=== PATIENT | female | born 1965 | race Caucasian/White ===

== ENCOUNTER 2017-12-13 10:24 | Emergency (ER) | payer MEDICAID, SELFPAY ==
[2017-12-13 10:24] VITALS: BP 134/89; PULSE 104; RESP 18; TEMP 36.7; O2SAT 98; BMI 32.9
[2017-12-13 11:45] LABS: UTC Influenza A Antigen Negative (Negative); UTC Influenza B Antigen Negative (Negative)
--- NOTE | 2017-12-13 11:46 | HMH.EDUTC ---
[facility] [place] Clinical Impression: Asthmatic bronchitis Qualifiers: Asthma severity: unspecified severity Asthma persistence: unspecified Asthma complication type: with acute exacerbation Qualified Code(s): J45.901 - Unspecified asthma with (acute) exacerbation Disposition: Home, Self-Care Condition on Discharge: Good Instructions: DI for Asthma -- Adult, DI for Acute Bronchitis Additional Instructions: * Monitor Temp. Tylenol every 4 hours as needed no more then 5 times a day or 4000mg in 24 hours and/or ibuprofen every 6 hours as needed no more then 3200mg in 24 hours (as long as your primary care doctor has told you that it is ok to take both) for fever/aches/pain. ER if fever no less than 101 despite tylenol and ibuprofen * humidifier/vaporizer/hot steamy shower * Use your Inhaler or neb every 4-6 hours as needed like we discussed. Should help open airways and improve cough, wheezing, shortness of breath. * Mucinex during the day for your cough and cough suppressant only at night. Be sure to drink lots of water. Insurance may not cover a prescription of mucinex. Might be cheaper to get 400mg tablets and take 2 tablets morning, midday and evening all with lots of water. * Promethazine DM cough syrup will cause drowsiness. Use it only at night. No driving, operating machinery or caring for small children after taking it. * Start steroid tomorrow since you had injection in clinic. Helps with inflammation therefore, cough and wheezing. Follow directions on package. Rvwd side effects. Pt reports they have taken them before. Prescriptions: predniSONE [Deltasone 10mg tablet] 10 mg PO BID #10 tab Promethazine/Dextromethorphan [Promethazine-Dm Syrup] 5 - 10 ml PO HS PRN #120 ml PRN Reason: Cough Referrals: Tiffanie Esqueda PA [Primary Care Provider] - (IMMEDIATELY for new or worsening symptoms OR no noticeable improvement over the next 48-72 hours. 911 for difficulty breathing.) Forms: Work/School Release Time of Disposition: 13:22 Medical Decision Making - Agusto Inquiry Pt receiving controlled substance: No Vital Signs: 12/13/17 10:24 12/13/17 12:29 Temperature 98.1 F Temperature Source Oral Pulse Rate 100 H Pulse Rate [Left Radial] 104 H Respiratory Rate 18 Blood Pressure [Left Arm] 134/89 Blood Pressure Mean [Left Arm] 104 Blood Pressure Source [Left Arm] Automatic Cuff Blood Pressure Position [Left Arm] Supine 02 Sat by Pulse Oximetry 98 Oxygen Delivery Method Room Air - Lab Data Lab results reviewed: Yes: I reviewed the patient's lab results. Lab Results 12/13/17 10:44: Influenza Type A Ag Negative, Influenza Type B Ag Negative Orders (Tests/Meds): ED MEDICATIONS Discontinued Medications Generic Name Dose Route Start Last Admin Trade Name Alvaro PRN Reason Stop Dose Admin Albuterol/Ipratropium 3 ml 12/13/17 11:51 12/13/17 12:28 Duoneb 3ml Neb IH 12/13/17 11:52 3 ml ONCE ONE Administration Methylprednisolone Sodium Succinate 125 mg 12/13/17 11:51 12/13/17 11:54 Solu-Medrol 125mg/2ml Vial IM 12/13/17 11:52 125 mg ONCE ONE Administration - Radiology Data #1 Image(s): Chest Image Reviewed: Yes I have reviewed radiologist's interpretation Preliminary Findings: Normal/NAD - Reevaluation(s) Time: 12:25 Reevaluation #1: RT at BS for neb 1315: Rvwd CXR. Chest improved w/ neb and steroids. [facility] [place] - General Stated complaint: Poss Flu Time Seen by Provider: 12/13/17 11:46 Mode of Arrival: Ambulatory Source of Information: Patient Limitations: No Limitations Description of Symptoms (Recalled from Triage Doc. by RN): body aches, cough, fever, congestion with yellow/green mucous HEENT Symptoms (Recalled from RN notes): Yes (body aches, congestion) Resp Symptoms (Recalled from RN notes): Yes (cough) Skin Symptoms (Recalled from RN notes): No MS Symptoms (Recalled from RN notes): No Functional Status (Recalled from RN notes): na - Histor
--- NOTE | 2017-12-13 11:50 | ED_ITS ---
[facility] Disposition Clinical Impression: Asthmatic bronchitis Qualifiers: Asthma severity: unspecified severity Asthma persistence: unspecified Asthma complication type: with acute exacerbation Qualified Code(s): J45.901 - Unspecified asthma with (acute) exacerbation Disposition: Home, Self-Care Condition on Discharge: Good Instructions: DI for Asthma -- Adult, DI for Acute Bronchitis Additional Instructions: * Monitor Temp. Tylenol every 4 hours as needed no more then 5 times a day or 4000mg in 24 hours and/or ibuprofen every 6 hours as needed no more then 3200mg in 24 hours (as long as your primary care doctor has told you that it is ok to take both) for fever/aches/pain. ER if fever no less than 101 despite tylenol and ibuprofen * humidifier/vaporizer/hot steamy shower * Use your Inhaler or neb every 4-6 hours as needed like we discussed. Should help open airways and improve cough, wheezing, shortness of breath. * Mucinex during the day for your cough and cough suppressant only at night. Be sure to drink lots of water. Insurance may not cover a prescription of mucinex. Might be cheaper to get 400mg tablets and take 2 tablets morning, midday and evening all with lots of water. * Promethazine DM cough syrup will cause drowsiness. Use it only at night. No driving, operating machinery or caring for small children after taking it. * Start steroid tomorrow since you had injection in clinic. Helps with inflammation therefore, cough and wheezing. Follow directions on package. Rvwd side effects. Pt reports they have taken them before. Prescriptions: predniSONE [Deltasone 10mg tablet] 10 mg PO BID #10 tab Promethazine/Dextromethorphan [Promethazine-Dm Syrup] 5 - 10 ml PO HS PRN #120 ml PRN Reason: Cough Referrals: Tiffanie Esqueda PA [Primary Care Provider] - (IMMEDIATELY for new or worsening symptoms OR no noticeable improvement over the next 48-72 hours. 911 for difficulty breathing.) Forms: Work/School Release Time of Disposition: 13:22 Medical Decision Making - Agusto Inquiry Pt receiving controlled substance: No Vital Signs: 12/13/17 10:24 12/13/17 12:29 Temperature 98.1 F Temperature Source Oral Pulse Rate 100 H Pulse Rate [Left Radial] 104 H Respiratory Rate 18 Blood Pressure [Left Arm] 134/89 Blood Pressure Mean [Left Arm] 104 Blood Pressure Source [Left Arm] Automatic Cuff Blood Pressure Position [Left Arm] Supine 02 Sat by Pulse Oximetry 98 Oxygen Delivery Method Room Air - Lab Data Lab results reviewed: Yes: I reviewed the patient's lab results. Lab Results 12/13/17 10:44: Influenza Type A Ag Negative, Influenza Type B Ag Negative Orders (Tests/Meds): ED MEDICATIONS Discontinued Medications Generic Name Dose Route Start Last Admin Trade Name Huyq PRN Reason Stop Dose Admin Albuterol/Ipratropium 3 ml 12/13/17 11:51 12/13/17 12:28 Duoneb 3ml Neb IH 12/13/17 11:52 3 ml ONCE ONE Administration Methylprednisolone Sodium Succinate 125 mg 12/13/17 11:51 12/13/17 11:54 Solu-Medrol 125mg/2ml Vial IM 12/13/17 11:52 125 mg ONCE ONE Administration - Radiology Data #1 Image(s): Chest Image Reviewed: Yes I have reviewed radiologist's interpretation Preliminary Findings: Normal/NAD - Reevaluation(s) Time: 12:25 Reevaluation #1: RT at BS for neb 1315: Rvwd CXR. Chest improved w/ neb and steroids.
--- NOTE | 2017-12-13 11:51 | XR_ITS ---
XR chest 2V HISTORY: ITS.REASON: cough, wheezing, hx asthma, ORDERING PHYSICIAN: Milton Cleveland PATIENT AGE: 52 years COMPARISON: 07/05/2015 FINDINGS: The cardiomediastinal silhouette and pulmonary vascularity are within normal limits. The lungs are clear without infiltrates, suspicious nodules, or pleural effusions. No acute bony abnormalities. IMPRESSION: Negative chest, no acute finding
[2017-12-13 12:29] VITALS: PULSE 100; PULSE 91
[2017-12-13 13:26] VITALS: BP 134/89; PULSE 100; RESP 18; TEMP 36.7; O2SAT 98
== END 2017-12-13 13:31 | disposition home or self-care (01) ==
PROVIDERS: Emergency Provider Nurse Practitioner Family; Family Provider Physician Assistant; PCP Physician Assistant
DX: J45.901 Unspecified asthma with (acute) exacerbation (principal)
CPT/HCPCS: 71046; 87804; 96372; 99203

== ENCOUNTER → 2018-08-11 08:09 | Outpatient (CLI) | payer OTHER, MEDICAID, SELFPAY ==
--- NOTE | 2018-08-11 08:11 | MM_ITS ---
MM Dig screening mamm BI w/CAD ORDERING PHYSICIAN : SUE Fox PATIENT AGE: 53 years GENDER: Female COMPARISON: Right Ultrasound and mammogram from our facility from August 2017 & bilateral mammogram November 2016 ;. Old outside studies from [address] [place] [address] dated 2013 and 2014 INDICATION: ITS.REASON: Screening no hormones. No new complaints. Patient with previous percutaneous needle biopsy right breast 2 years ago Family history. Mother with breast cancer. TECHNIQUE: Standard CC and MLO images were obtained. R2 CAD reviewed. FINDINGS: RIGHT BREAST:The prominent ovoid density in the retroareolar region right breast is again noted and appear stable since 2017.. It measures up to 2.4 cm height 2.2 cm transverse with no significant progression since 2017 exam. This mass appears to have been previously [facility]opsied[facility]- [facility];. Old outside studies from [address] [place] [address] dated 2013 and 2014 demonstrating relative stability at this mass.., ultrasound was performed here at our facility in 2016. We do not have information as to the results of the previous biopsy but given the stability here I believe it can be followed safely. . There is a 6 mm x 7.5 mm nodular density at the deeper inferior right breast which appears stable on cc view and MLO view as well. Other areas of relative density such as superior right breast upper-outer quadrant has remained fairly stable and can be followed.. LEFT BREAST:. There are areas highlighted by CAD which are more evident today than studies particularly compared back to 2014. It I favor these are most likely summation shadows but the would benefit from CC & MLO and 90 degree spot views to evaluate. If any of these densities persist ultrasound may be warranted. The area labeled X is seen at the retroareolar most evident on MLO view. Area labeled Y seen at deep breast on cc view is highlighted by CAD but I believe is stable. There are also areas at superior left breast labeled Z and Y which are most likely summation but should be included on the spot views IMPRESSION: ...... 1. Left breast. Focal focal areas of density I favor merely summation shadows but would benefit from spot views since there more evident today. These are labeled X, Y and Z 2. Stable right breast. No appreciable change. Follow-up right mammogram 1 year . . Stable large ovoid density retroareolar region right breast is remain stable.. Previously biopsied in 2013. It can be followed . Other small areas of the right breast stable. 3. Moderately dense breast bilaterally BI-RADS Category: 0 Need Additional Imaging Evaluation RECOMMENDED FOLLOW-UP: IMM - IMMEDIATE FOLLOW-UP RECOMMENDED Left breast Spot views (A letter has been sent to the patient regarding results of the study.)
== END ==
PROVIDERS: PCP Physician Assistant; Visit Provider Physician Assistant
DX: Z12.31 Encounter for screening mammogram for malignant neoplasm of breast (principal)
CPT/HCPCS: 77067

== ENCOUNTER → 2018-09-12 14:32 | Outpatient (CLI) | payer OTHER, MEDICAID, SELFPAY ==
[2018-09-13 09:25] LABS: Basophils % 0.5 % (0.1-2.0); Eosinophils # 0.1 K/mm3 (0.0-0.4); Eosinophils % 1.7 % (0.1-12.0); Hemoglobin 12.4 g/dL (12.2-16.2); Lymphocytes # 2.1 K/mm3 (0.7-4.5); Mean Corpuscular HGB Conc 31.1 g/dL (31.8-35.4); Mean Corpuscular Hemoglobin 29.6 pg (27.0-31.2); Mean Corpuscular Volume 95.1 fl (81-99); Mean Platelet Volume 10.6 fl (7.4-10.4); Monocytes # 0.4 K/mm3 (0.1-1.0); Monocytes % 4.8 % (1.7-9.3); Neutrophils # 4.9 K/mm3 (1.8-7.8); Platelet Count 293 K/mm3 (142-424); Red Blood Count 4.21 M/mm3 (4.20-5.40); Red Cell Distribution Width 14.1 % (11.5-17.5); White Blood Count 7.5 K/mm3 (4.8-10.8)
[2018-09-13 09:38] LABS: Anion Gap 14.1 mEq/L (5-15); Blood Urea Nitrogen 16 mg/dL (7-18); Carbon Dioxide 26 mmol/L (21.0-32.0); Chloride 105 mmol/L (98-107); Creatinine,Serum 0.73 mg/dL (0.55-1.02); Estimated Glomerular Filt Rate 84 ml/min (>60); Potassium 4.1 mmoL/L (3.5-5.1); Sodium 141 mmol/L (136-145)
[2018-09-13 09:39] LABS: Alanine Aminotransferase 27 U/L (12-78); Albumin/Globulin Ratio 1.3 (1.1-1.8); Alkaline Phosphatase 113 U/L (46-116); Aspartate Amino Transferase 14 U/L (15-37); Bilirubin,Total 0.3 mg/dL (0.2-1.0); Calcium 9.1 mg/dL (8.5-10.1); Free T4 (Free Thyroxine) 0.99 ng/dl (0.76-1.46); GFR (African American) 101 ML/MIN (>60); Globulin 3.1 gm/dl (1.3-3.2); Glucose 107 mg/dL (74-106); Thyroid Stimulating Hormone 2.46 uIU/ml (0.358-3.740); Total Protein,Serum 7.1 gm/dL (6.4-8.2)
[2018-09-14 15:23] LABS: Vitamin D 25 Hydroxy 29.6 ng/mL (30.0-100.0)
== END ==
PROVIDERS: Visit Provider Physician Assistant
DX: G45.9 Transient cerebral ischemic attack, unspecified (principal)
CPT/HCPCS: 80053; 82652; 84439; 84443; 85025

== ENCOUNTER → 2018-09-22 12:56 | Outpatient (CLI) | payer OTHER, MEDICAID, SELFPAY ==
--- NOTE | 2018-09-22 12:58 | CI_ITS ---
Cerebrovascular Exam Indications: TIA 434.91. IMPRESSIONS 1. The bilateral vertebral arteries are patent with normal antegrade flow. 2. Study suggests less than 20% stenosis involving the right internal carotid artery. 3. Study suggests less than 20% stenosis involving the left internal carotid artery. 4. Tortuous carotid arteries seen bilaterally. 5. 2.0cm lymph node seen left neck. History: Transient ischemic attack. Carotid duplex study. Complete study and Doppler flow study including spectral analysis, color and farr scale imaging. Height: Height: 165.1cm. Height: 65in. Weight: Weight: 91.2kg. Weight: 200.6lb. Body mass index: BMI: 33.4kg/m^2. Body surface area: BSA: 2.08m^2. Location: Vascular laboratory. Patient status: Outpatient. Tables: Arterial flow: + +--------+--------+ Location V sys V ed + +--------+--------+ Right CCA - proximal 114cm/s 24.4cm/s + +--------+--------+ Right CCA - distal 70.7cm/s 21.2cm/s + +--------+--------+ Right ECA 65.2cm/s 11.8cm/s + +--------+--------+ Right ICA - proximal 94.3cm/s 34.6cm/s + +--------+--------+ Right ICA - mid 90.4cm/s 36.9cm/s + +--------+--------+ Right ICA - distal 99cm/s 24.4cm/s + +--------+--------+ Right vertebral 51.1cm/s 18.9cm/s + +--------+--------+ Left CCA - proximal 95.9cm/s 23.6cm/s + +--------+--------+ Left CCA - distal 87.2cm/s 17.3cm/s + +--------+--------+ Left ECA 90.4cm/s 15.7cm/s + +--------+--------+ Left ICA - proximal 106cm/s 37.7cm/s + +--------+--------+ Left ICA - mid 107cm/s 40.1cm/s + +--------+--------+ Left ICA - distal 107cm/s 32.2cm/s + +--------+--------+ Left vertebral 40.9cm/s 12.6cm/s + +--------+--------+ Velocity ratios: + + + + + + Right, V sys Right, V ed Left, V sys Left, V ed + + + + + + Max ICA/dist CCA 1.4 1.74 1.23 2.32 + + + + + + (Report amended ) Electronically signed by: Delvis Evans [id number]
--- NOTE | 2018-09-22 12:58 | MM_ITS ---
MM Dig mamm DX unilat LT CAD INDICATION: Follow-up abnormal screening exam, asymmetric densities ORDERING PHYSICIAN: SUE Fox PATIENT AGE: 53 years COMPARISON: 08/11/2018, 08/04/2017, 11/11/2016 TECHNIQUE: Spot compression views are performed of the left breast FINDINGS: There is average to dense fibroglandular tissue. There are scattered asymmetric areas of increased density once again noted. For the most part these appear to compress out as fibroglandular tissue. Persistent asymmetric density is present in the retroareolar region probably related to fibroglandular tissue. Left breast ultrasound is however suggested IMPRESSION: Scattered areas of asymmetric density which may be related to asymmetric fibroglandular tissue. Left breast ultrasound is recommended. BI-RADS Category: 0 Need Additional Imaging Evaluation RECOMMENDED FOLLOW-UP: IMM - IMMEDIATE FOLLOW-UP RECOMMENDED (A letter has been sent to the patient regarding results of the study.)
== END ==
PROVIDERS: PCP Physician Assistant; Visit Provider Physician Assistant
DX: G45.9 Transient cerebral ischemic attack, unspecified (principal)
CPT/HCPCS: 77065; 93880; A9537

== ENCOUNTER → 2018-10-06 13:39 | Outpatient (CLI) | payer OTHER, MEDICAID, SELFPAY ==
--- NOTE | 2018-10-06 13:40 | US_ITS ---
US breast LT complete INDICATION: Follow-up abnormal mammogram ORDERING PHYSICIAN: SUE Fox PATIENT AGE: 53 years COMPARISON: 09/22/2018 TECHNIQUE: Left breast ultrasound complete with axilla FINDINGS: 5 mm cyst is present at 6:00. No suspicious nodules. No solid nodules demonstrated. Small nodes are present in the axilla. IMPRESSION: Benign findings, small cyst noted at 6:00 Probably benign findings on the mammogram. Recommend 6 month mammographic follow-up regarding the asymmetric density BI-RADS Category: 3 Probably Benign Finding Short Term Follow-up RECOMMENDED FOLLOW-UP: 6M - 6 MONTH FOLLOW-UP (A letter has been sent to the patient regarding results of the study.)
== END ==
PROVIDERS: PCP Physician Assistant; Visit Provider Physician Assistant
DX: R92.8 Other abnormal and inconclusive findings on diagnostic imaging of breast (principal)
CPT/HCPCS: 76641

== ENCOUNTER → 2018-12-20 10:08 | Outpatient (CLI) | payer OTHER, MEDICAID, SELFPAY ==
--- NOTE | 2018-12-20 10:13 | XR_ITS ---
XR knee RT 4V HISTORY: Right knee pain ITS.REASON: 4 views weightbearing ORDERING PHYSICIAN: Naomie Marie MD PATIENT AGE: 53 years COMPARISON: 11/25/2015 FINDINGS: Moderate osteoarthritic changes are present involving all 3 compartments with narrowing of the joint space and osteophyte formation. There is a small suprapatellar effusion suspected. No acute fracture or dislocation. No lytic or blastic change. IMPRESSION: Moderate osteoarthritis involving all 3 compartments chest shown some progression compared to previous exam with small knee joint effusion
== END ==
PROVIDERS: PCP Physician Assistant; Visit Provider Orthopaedic Surgery
DX: M25.561 Pain in right knee (principal)
CPT/HCPCS: 73564

== ENCOUNTER 2018-12-20 11:43 | Outpatient (RCR) | payer OTHER, MEDICAID, SELFPAY | END 2018-12-20 11:50 | disposition home or self-care (01) | LOC: PT 11:43 | PROVIDERS: Visit Provider Orthopaedic Surgery | DX: M17.11 Unilateral primary osteoarthritis, right knee (principal) | CPT/HCPCS: 97760 ==

== ENCOUNTER → 2019-02-16 14:16 | Outpatient (CLI) | payer OTHER, MEDICAID, SELFPAY ==
--- NOTE | 2019-02-16 14:31 | XR_ITS ---
XR chest 2V HISTORY: Chronic asthma, bronchitis ITS.REASON: pre op ORDERING PHYSICIAN: Naomie Marie MD PATIENT AGE: 54 years COMPARISON: 12/13/2017 FINDINGS: The cardiomediastinal silhouette and pulmonary vascularity are within normal limits. There is a faint nodular opacity in the right lung base overlying the medial aspect of the right fifth rib and could be due to summation artifact and may be confirmed with follow-up. There is an old fracture of the right seventh rib. No lobar consolidation or collapse. There are degenerative changes in the thoracic spine. IMPRESSION: No acute finding. See above for detail
[2019-02-16 14:52] LABS: INR 0.95 (0.9-1.1); Prothrombin Time 9.9 seconds (9.4-11.8)
[2019-02-16 15:44] LABS: Alanine Aminotransferase 32 U/L (12-78); Albumin Level 3.7 gm/dL (3.4-5.0); Albumin/Globulin Ratio 1.1 (1.1-1.8); Alkaline Phosphatase 106 U/L (46-116); Anion Gap 15.1 mEq/L (5-15); Aspartate Amino Transferase 15 U/L (15-37); Bilirubin,Total 0.5 mg/dL (0.2-1.0); Blood Urea Nitrogen 12 mg/dL (7-18); Calcium 8.6 mg/dL (8.5-10.1); Carbon Dioxide 24 mmol/L (21.0-32.0); Chloride 105 mmol/L (98-107); Creatinine,Serum 0.77 mg/dL (0.55-1.02); Estimated Glomerular Filt Rate 78 ml/min (>60); GFR (African American) 95 ML/MIN (>60); Globulin 3.3 gm/dl (1.3-3.2); Glucose 97 mg/dL (74-106); Potassium 4.1 mmoL/L (3.5-5.1); Sodium 140 mmol/L (136-145)
[2019-02-16 17:13] LABS: Basophils % 0.3 % (0.1-2.0); Eosinophils # 0.2 K/mm3 (0.0-0.4); Eosinophils % 3.9 % (0.1-12.0); Hematocrit 39.4 % (37.0-47.0); Hemoglobin 13.3 g/dL (12.2-16.2); Lymphocytes # 2.3 K/mm3 (0.7-4.5); Lymphocytes % 37.2 % (10-50); Mean Corpuscular HGB Conc 33.7 g/dL (31.8-35.4); Mean Corpuscular Hemoglobin 29.9 pg (27.0-31.2); Mean Corpuscular Volume 88.8 fl (81-99); Mean Platelet Volume 9.9 fl (7.4-10.4); Monocytes # 0.3 K/mm3 (0.1-1.0); Neutrophils # 3.3 K/mm3 (1.8-7.8); Neutrophils % 53.5 % (37.0-80.0); Platelet Count 283 K/mm3 (142-424); Red Blood Count 4.43 M/mm3 (4.20-5.40); Red Cell Distribution Width 13.7 % (11.5-17.5); White Blood Count 6.1 K/mm3 (4.8-10.8)
== END ==
PROVIDERS: Visit Provider Orthopaedic Surgery
DX: Z01.818 Encounter for other preprocedural examination (principal)
CPT/HCPCS: 36415; 71046; 80053; 85025; 85610; 86850; 87081

== ENCOUNTER 2019-03-06 06:12 | Inpatient (IN) | payer BC, SELFPAY ==
[2019-03-06] VITALS (18 sets, daily range): BP systolic 119–139; BP diastolic 66–85; PULSE 78–105; RESP 16–18; TEMP 36.2–43; O2SAT 91–100; BMI 34.2
[2019-03-06 08:16] LABS: Microscopic,Cath URINE MICROSCOPIC (MICROSCOPIC)
[2019-03-06 08:17] LABS: Appearance,Urine/Cath CLEAR (Clear); Bilirubin,Cath Negative (Negative); Blood, Urine/Cath 1+ (Negative); Color,Urine/Cath YELLOW (Yellow); Glucose,Urine/Cath (UA) Negative (Negative); Ketones,Urine/Cath Negative (Negative); Leukocyte Esterase,Cath Negative (Negative); Nitrate,Cath Negative (Negative); Protein,Urine/Cath Negative (Negative); Urobilinogen,Cath 0.2 EU/dl (0.2)
[2019-03-06 09:11] LABS: WBC,Urine/Cath Occasional #/hpf (0-3)
[2019-03-06 09:12] LABS: Bacteria,Urine/Cath 1+ /lpf; Mucus,Urine/Cath 1+ /lpf
--- NOTE | 2019-03-06 11:35 | SUR.OPER ---
1135: Ancef 1 gm given IV by TECHNICAL SUPPORT TECHNICIAN at MD request, over 4 hr dimple since last dose given.
--- NOTE | 2019-03-06 11:45 | SUR.OPER ---
1024: report to pt's that components had been cemented, pt stable, delivered by pre op staff. 1115: pre op staff delivered report that surgeon closing (suturing) at this time, pt stable, all going as expected, approximately 30-45 minutes before surgeon will be out to speak with pt's .
--- NOTE | 2019-03-06 12:23 | HMH.ANESCL ---
[facility] Anesthesia Checklist - Patient Identification Patient Identification: Arm Band - Structural Data Admitted From: Home Planned Operative Procedure/s: right total knee arthroplasty Consent for Planned Operative Procedure(s) Verified: Yes Verified Documents: Surgical Consent, History and Physical - NPO Status Verified Time NPO: 00:00 - Additional verifications Anesthesia Reactions: No - Airway Assessment C-Spine Mobility Assessed: Yes (mp2) TMJ Mobility Assessed: Yes Dentition: Good Dentition - Neurological Assessment Level of Consciousness: Awake, Alert - Anesthesia Plan Anesthesia Risk discussed: Yes Anesthesia Plan: Verified ASA Class: II Anesthesia Type: Spinal (with Mac and Adductor canal block) [facility] History I have reviewed the patient's past medical history: Yes Medical History: Reports:: Asthma Denies:: Cancer, Diabetes Mellitus Type 1, Diabetes Mellitus Type 2, Hypertension, Internal Pacemaker, Lung Disease, MRSA, Seizures *Have you ever received a pneumonia vaccine?: Yes *Have you received a flu vaccine this season?: No Other Medical History: Reports: Other. Denies: Hypothyroidism Laterality Cases: Right: Arthroscopy Knee Other Surgeries: Yes: Cholecystectomy, Hernia Repair, Thyroidectomy, Other. No: Pacemaker Amputation: No Fractures: No - *Social History Educational Level: Attended High School Smoking Status: Former smoker Tobacco Type: cigarettes Alcohol Intake: never Substance Use Type: denies use *Occupational Status:: employed Housing: house Household Members: spouse *Travel in the last 8 weeks: None - Psychiatric History Expresses thoughts of harming self/others: None Suicide Plan Description: No Plan Family Hx:: Asthma
--- NOTE | 2019-03-06 12:24 | HMH.ANESI ---
[facility] Anesthesia Record Part I Intake, IV Amount: 2,600 Estimated blood loss (mL): 100 Urine output (mL): 900 Blood Pressure: 131/66 SaO2: 95 Pulse Rate: 100 Respiratory Rate: 16 Temperature: 98.2 F Patient is:: Drowsy, Stable Stable to PACU at:: 12:15
--- NOTE | 2019-03-06 12:25 | HMH.ANESII ---
[facility] Anesthesia Record Part II Discharge Time: 12:45 Destination: 2nd floor PACU nurse assessment reviewed?: Yes Patient Condition:: Good Anesthesia Complications:: None Swallowing reflex intact?: Yes Cyanosis?: No
--- NOTE | 2019-03-06 12:32 | XR_ITS ---
XR knee RT 2V HISTORY: Follow-up knee replacement ITS.REASON: post op TKA ORDERING PHYSICIAN: Naomie Marie MD PATIENT AGE: 54 years COMPARISON: None FINDINGS: Status post total knee replacement. Good alignment. There is postsurgical gas noted. On the lateral view, there are 2 opacities overlying the distal femur not readily apparent on the frontal view and may be due to artifact. Bony spicules is also a consideration. IMPRESSION: Good alignment status post total knee replacement. There are 2 triangular shaped densities noted over the distal femur on the lateral view and could be due to artifact or bony spicules
--- NOTE | 2019-03-06 12:50 | PC.NURSE ---
BILATERAL LUNG SOUNDS ARE CLEAR AND CHEST RISES EVENLY WITH INSPIRATION AND EXHALATION. BOWEL SOUNDS X4. PATIENT STATES THAT SHE IS IN NO PAIN AT THIS TIME WHEN ASKED BUT IS STILL VERY DROWSY. WILL CONTINUE TO MONITOR. POLAR CARE IS IN PLACE ON RIGHT KNEE, AND THIGH HIGH SCUDS ARE BEING USED ON LEFT LEG.
--- NOTE | 2019-03-06 13:28 | PC.NURSE ---
PHYSICAL THERAPY AT BEDSIDE. PATIENT VERY DROWSY, PHYSICAL THERAPY STATES THEY WILL RETURN AT 1730 TO ATTEMPT TO GET PATIENT UP OUT OF BED AT THAT TIME.
--- NOTE | 2019-03-06 13:31 | HMH.ORTHHP ---
*Admission Date: 03/06/19 *Chief complaint: R knee DJD *History of present illness: 54yo F with R knee DJD refractory to conservative treatment, underwent R TKA this morning without complication. Admitted for routine post-op care, physical therapy and dispo planning. [facility] History I have reviewed the patient's past medical history: Yes Medical History: Reports:: Asthma Denies:: Cancer, Diabetes Mellitus Type 1, Diabetes Mellitus Type 2, Hypertension, Internal Pacemaker, Lung Disease, MRSA, Seizures *Have you ever received a pneumonia vaccine?: No *Have you received a flu vaccine this season?: No Other Medical History: Reports: Other. Denies: Hypothyroidism Laterality Cases: Right: Arthroscopy Knee Other Surgeries: Yes: Cholecystectomy, Hernia Repair, Thyroidectomy, Other. No: Pacemaker Amputation: No Fractures: No - *Social History Educational Level: Completed High School Smoking Status: Former smoker Tobacco Type: cigarettes Alcohol Intake: never Substance Use Type: denies use *Occupational Status:: employed Housing: house Household Members: spouse *Travel in the last 8 weeks: None - Psychiatric History Expresses thoughts of harming self/others: None Suicide Plan Description: No Plan Family Hx:: Asthma Review of Systems - Review of Systems Review of systems:: pertinent systems reviewed and negative unless documented below Meds Home Medications Medication Instructions Recorded Confirmed Type Budesonide/Formoterol Fumarate 2 puff INHALATION BID 07/31/18 03/06/19 History [Symbicort 80-4.5 Mcg Inhaler] hydrocodone 5 mg-acetaminophen 325 1 tab PO BID PRN #60 tab 11/20/18 03/06/19 Rx mg tablet cyclobenzaprine 10 mg tablet 10 mg PO TID #90 tab 12/22/18 03/06/19 Rx diclofenac sodium 75 mg 75 mg PO BID #60 tab 01/11/19 03/06/19 Rx tablet,delayed release levothyroxine 150 mcg tablet 150 mcg PO DAILY #90 tab 01/11/19 03/06/19 Rx Gabapentin 800 mg PO TID 03/06/19 03/06/19 History Allergies Allergy/AdvReac Type Severity Reaction Status Date / Time No Known Drug Allergies Allergy Unknown Verified 02/28/19 10:04 Exam Vital signs and Labs for Last 24 Hours: Temp Pulse Resp BP Pulse Ox 98.0 F 93 H 18 121/69 93 L 03/06/19 12:50 03/06/19 13:20 03/06/19 13:20 03/06/19 13:20 03/06/19 13:20 Laboratory Results - last 24 hr 03/06/19 06:41: Blood Type O Positive, Antibody Screen Negative 03/06/19 07:32: Urine Color Yellow, Urine Appearance Clear, Urine pH 6.0, Ur Specific [place] 1.020, Urine Protein Negative, Urine Glucose (UA) Negative, Urine Ketones Negative, Urine Blood 1+, Urine Nitrate Negative, Urine Bilirubin Negative, Urine Urobilinogen 0.2, Ur Leukocyte Esterase Negative, Urine RBC 5-10, Urine WBC Occasional, Ur Squamous Epith Cells None, Urine Bacteria 1+ I & O for Last 24 hours: Intake & Output 03/04/19 03/05/19 03/06/19 03/07/19 11:59 11:59 11:59 11:59 Intake Total 2600 / 2600 Output Total 900 / 900 Balance -900 / -900 2600 / 2600 Weight 206 lb - Constitutional no acute distress, average body habitus - *Routine HEENT Exam Head: Present: normocephalic Eye: Present: EOMI ENT: Present: mucous membranes moist - *Routine Neck Exam Present: supple - *Routine Respiratory Exam Present: CTA bilaterally. Absent: accessory muscle use, patient mechanically ventilated, decreased breath sounds, rhonchi, wheezes - *Routine Cardiovascular Exam Present: RRR - *Routine Abdominal Exam Present: soft. Absent: tenderness - *Routine Extremities Exam Comments: R knee dressings c/d/i +DF/PF/EHL RLE; spinal wearing off sensation diminished RLE s/p spinal/block palpable pedal pulses RLE, foot warm/well-perfused R calf soft, non-tender - *Routine Skin Exam Present: warm, wounds. Absent: ecchymosis - *Routine Neurological Exam Present: alert, oriented X3, moving all extremities, normal tone. Absent: altered mental status - Routine Psychiatric Exam Pres
--- NOTE | 2019-03-06 13:35 | P.HP_ITS ---
*Admission Date: 03/06/19 *Chief complaint: R knee DJD *History of present illness: 54yo F with R knee DJD refractory to conservative treatment, underwent R TKA this morning without complication. Admitted for routine post-op care, physical therapy and dispo planning. [facility] History I have reviewed the patient's past medical history: Yes Medical History: Reports:: Asthma Denies:: Cancer, Diabetes Mellitus Type 1, Diabetes Mellitus Type 2, Hyper tension, Internal Pacemaker, Lung Disease, MRSA, Seizures *Have you ever received a pneumonia vaccine?: No *Have you received a flu vaccine this season?: No Other Medical History: Reports: Other. Denies: Hypothyroidism Laterality Cases: Right: Arthroscopy Knee Other Surgeries: Yes: Cholecystectomy, Hernia Repair, Thyroidectomy, Other. No: Pacemaker Amputation: No Fractures: No - *Social History Educational Level: Completed High School Smoking Status: Former smoker Tobacco Type: cigarettes Alcohol Intake: never Substance Use Type: denies use *Occupational Status:: employed Housing: house Household Members: spouse *Travel in the last 8 weeks: None - Psychiatric History Expresses thoughts of harming self/others: None Suicide Plan Description: No Plan Family Hx:: Asthma Review of Systems - Review of Systems Review of systems:: pertinent systems reviewed and negative unless documented below Meds Home Medications Medication Instructions Recorded Confirmed Type Budesonide/Formoterol Fumarate 2 puff INHALATION BID 07/31/18 03/06/19 History [Symbicort 80-4.5 Mcg Inhaler] hydrocodone 5 mg-acetaminophen 325 1 tab PO BID PRN #60 tab 11/20/18 03/06/19 Rx mg tablet cyclobenzaprine 10 mg tablet 10 mg PO TID #90 tab 12/22/18 03/06/19 Rx diclofenac sodium 75 mg 75 mg PO BID #60 tab 01/11/19 03/06/19 Rx tablet,delayed release levothyroxine 150 mcg tablet 150 mcg PO DAILY #90 tab 01/11/19 03/06/19 Rx Gabapentin 800 mg PO TID 03/06/19 03/06/19 History Allergies Allergy/AdvReac Type Severity Reaction Status Date / Time No Known Drug Allergies Allergy Unknown Verified 02/28/19 10:04 Exam Vital signs and Labs for Last 24 Hours: Temp Pulse Resp BP Pulse Ox 98.0 F 93 H 18 121/69 93 L 03/06/19 12:50 03/06/19 13:20 03/06/19 13:20 03/06/19 13:20 03/06/19 13:20 Laboratory Results - last 24 hr 03/06/19 06:41: Blood Type O Positive, Antibody Screen Negative 03/06/19 07:32: Urine Color Yellow, Urine Appearance Clear, Urine pH 6.0, Ur Specific [place] 1.020, Urine Protein Negative, Urine Glucose (UA) Negative, Urine Ketones Negative, Urine Blood 1+, Urine Nitrate Negative, Urine Bilirubin Negative, Urine Urobilinogen 0.2, Ur Leukocyte Esterase Negative, Urine RBC 5- 10, Urine WBC Occasional, Ur Squamous Epith Cells None, Urine Bacteria 1+ I & O for Last 24 hours: Intake & Output 03/04/19 03/05/19 03/06/19 03/07/19 11:59 11:59 11:59 11:59 Intake Total 2600 / 2600 Output Total 900 / 900 Balance -900 / -900 2600 / 2600 Weight 206 lb - Constitutional no acute distress, average body habitus - *Routine HEENT Exam Head: Present: normocephalic Eye: Present: EOMI ENT: Present: mucous membranes moist - *Routin
--- NOTE | 2019-03-06 13:39 | HMH.OPNOTE ---
Date of procedure: 03/06/19 Pre-op Diagnosis:: degenerative joint disease RIGHT knee Post-op Diagnosis:: degenerative joint disease RIGHT knee Procedure performed:: R total knee arthroplasty Surgeon:: Naomie Marie MD Emergency Room Technician(s):: Delfin Brown MD EDUCATIONAL PROGRAM ASSISTANT:: Deondre Ryan Anesthesia: MAC, regional (adductor canal block), local (intra-op joint cocktail capsular injection), spinal Estimated blood loss (mL): 100 Clinical Note:: 54yo F with R knee DJD refractory to conservative therapy including: NSAIDs, corticosteroid injections, hyaluronic acid injections, icing, bracing and activity modification. Her pain has progressed to the point it is negatively impacting her quality of life and she desires surgical intervention. Her disease is worst in the medial compartment and we discussed unicompartmental arthroplasty, but she has a fair amount of anterior knee pain and would like to undergo TKA. I discussed the risks of the procedure, including but not limited to infection, bleeding, fracture, persistent pain, stiffness, fracture, component loosening/failure and need for subsequent surgery, and the risks of anesthesia. The patient vocalized understanding and provided informed consent. She was cleared medically by her primary care provider and pre-op lab workup/CXR/EKG were within normal limits. Operative findings:: implants: Basurto & Nephew Journey II BCS TKA system size 6 femur size 4 tibia 32mm / 7.5mm patella 9mm poly Operative note:: The patient was identified in pre-operative holding and the R leg signed by myself with marking pen. Consent was verified with the patient and all questions were answered. Pre-operative labs were confirmed to be within acceptable limits, and MRSA nasal swab negative. The patient was evaluated by anesthesia and they were taken to the OR, placed supine on the operative table and spinal anesthesia administered. 2g Ancef was infused intravenously and patient sedated with MAC. Once the patient was asleep, a nonsterile tourniquet was placed on the upper R thigh and the leg was prepped and draped in the usual sterile fashion for knee arthroplasty. Timeout was performed, identifying the correct patient, correct procedure, and correct site. The procedure was begun by exsanguinating the R lower extremity with an Esmarch and inflating the tourniquet to 325 mmHg. A longitudinal incision was made down the anterior aspect of the R knee centered over the patella, extending from 2 fingerbreadths superior to the patella to the tibial tubercle. Subcutaneous tissue was incised down to the patellar retinaculum and limited medial and lateral flaps were raised. Medial parapatellar arthrotomy was then made and Bovie used to perform a moderate medial release. Next, the patella was everted and the knee flexed to around 100 degrees. Fat pad was excised and both medial and lateral menisci were excised as well. The ACL and PCL were then excised sharply. The joint was exposed with Katiana retractors medially and laterally. Next the entry reamer was used to find and create the starting point for the distal femoral cutting guide. Through this entry point, the intramedullary devon component of the distal femoral cutting guide was inserted and the cutting guide pinned into place, set at 6 degrees valgus. This cutting guide was pinned into place, the intramedullary devon removed, and oscillating saw used to create distal femoral cut, removing the standard 9 mm from the distal femur. The cutting guide was then removed and pins left in place while a PCL retractor was inserted and used to help expose the proximal tibia. Extramedullary cutting guide was then placed on the patient's lower leg and used to determine the desired level resection for the proximal tibia. The decision was made to take 3 mm off the deficient medial plateau, and the guide was pinned in this position. Oscillating saw was used to make the proximal tibial cut, which was then removed with a flat broa
--- NOTE | 2019-03-06 13:44 | P.OP_ITS ---
Date of procedure: 03/06/19 Pre-op Diagnosis:: degenerative joint disease RIGHT knee Post-op Diagnosis:: degenerative joint disease RIGHT knee Procedure performed:: R total knee arthroplasty Surgeon:: Naomie Marie MD Bedspread Cutter Hand(s):: Delfin Brown MD FINANCIAL COMPLIANCE EXAMINER:: Deondre Ryan Anesthesia: MAC, regional (adductor canal block), local (intra-op joint cocktail capsular injection), spinal Estimated blood loss (mL): 100 Clinical Note:: 54yo F with R knee DJD refractory to conservative therapy including: NSAIDs, corticosteroid injections, hyaluronic acid injections, icing, bracing and activity modification. Her pain has progressed to the point it is negatively impacting her quality of life and she desires surgical intervention. Her disease is worst in the medial compartment and we discussed unicompartmental arthroplasty, but she has a fair amount of anterior knee pain and would like to undergo TKA. I discussed the risks of the procedure, including but not limited to infection, bleeding, fracture, persistent pain, stiffness, fracture, component loosening/failure and need for subsequent surgery, and the risks of anesthesia. The patient vocalized understanding and provided informed consent. She was cleared medically by her primary care provider and pre-op lab workup/CXR/EKG were within normal limits. Operative findings:: implants: Basurto & Nephew Journey II BCS TKA system size 6 femur size 4 tibia 32mm / 7.5mm patella 9mm poly Operative note:: The patient was identified in pre-operative holding and the R leg signed by myself with marking pen. Consent was verified with the patient and all questions were answered. Pre-operative labs were confirmed to be within acceptable limits, and MRSA nasal swab negative. The patient was evaluated by anesthesia and they were taken to the OR, placed supine on the operative table and spinal anesthesia administered. 2g Ancef was infused intravenously and patient sedated with MAC. Once the patient was asleep, a nonsterile tourniquet was placed on the upper R thigh and the leg was prepped and draped in the usual sterile fashion for knee arthroplasty. Timeout was performed, identifying the correct patient, correct procedure, and correct site. The procedure was begun by exsanguinating the R lower extremity with an Esmarch and inflating the tourniquet to 325 mmHg. A longitudinal incision was made down the anterior aspect of the R knee centered over the patella, extending from 2 fingerbreadths superior to the patella to the tibial tubercle. Subcutaneous tissue was incised down to the patellar retinaculum and limited medial and lateral flaps were raised. Medial parapatellar arthrotomy was then made and Bovie used to perform a moderate medial release. Next, the patella was everted and the knee flexed to around 100 degrees. Fat pad was excised and both medial and lateral menisci were excised as well. The ACL and PCL were then excised sharply. The joint was exposed with Katiana retractors medially and laterally. Next the entry reamer was used to find and create the starting point for the distal femoral cutting guide. Through this entry point, the intramedullary devon component of the distal femoral cutting guide was inserted and the cutting guide pinned into place, set at 6 degrees valgus. This cutting guide was pinned into place, the intramedullary devon removed, and oscillating saw used to create distal femoral cut, removing the standard 9 mm from the distal femur. The cutting guide was then removed and pins left in place while a PCL retractor was inserted and used to help expose the proximal tibia. Extramedullary cutting guide was then placed on the patient's lower leg and used to determine the desired level resect
--- NOTE | 2019-03-06 16:28 | PC.NURSE ---
PHYSICAL THERAPY IN WITH PATIENT AT THIS TIME.
--- NOTE | 2019-03-06 16:41 | PC.NURSE ---
INCENTIVE SPIROMETER HAD BEEN GIVEN TO PATIENT. AT THIS TIME EDUCATION WAS PROVIDED ON USE. QUESTIONS/CONCERNS WERE ENCOURAGED AND ANSWERED.
--- NOTE | 2019-03-06 17:53 | SW/DCPLANNER ---
I visited with patient and patients later this afternoon. Patient was still very drowsy and unable to answer questions. Patients was present and able to answer some questions. 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 Patient does have a bedside commode at home but will need a rolling walker at time of discharge. has stated that he believe pending PT the plan for this patient is to return home and receive PT as an outpatient. CM will follow up with this patient and patients family tomorrow to further discuss discharge plans. Rolling walker will be ordered at time of discharge.
--- NOTE | 2019-03-06 21:04 | PC.NURSE ---
Evening meds given, see MAR. Pt. denies pain at this time. Pt. reports holding Saltine crackers down. Pt. denies further needs at this time.
--- NOTE | 2019-03-06 22:59 | PC.NURSE ---
Pt. called out. Nurse to room. Pt. c/o 03/12 rated right knee pressure/pain. Pt. requesting pain medication. Morphine 2mg given see DEC. Pt. tolerated well. Roll under right ankle repositioned. Pt. tolerated well. Pt. denies further needs at this time.
[2019-03-07] VITALS (7 sets, daily range): BP systolic 118–142; BP diastolic 69–73; PULSE 75–94; RESP 14–17; TEMP 36.7–37.1; O2SAT 93–100
--- NOTE | 2019-03-07 04:42 | PC.NURSE ---
Nurse assessment completed. Lungs clear to auscultation throughout, Heart at RRR. Bowel sounds hypoactive but present. Pt. denies passing flatus, ABD soft and non tender. Pt. reports right knee pressure at 3/10 nurse offered pain medication, pt. refused. Dressing on R knee remains C/D/I. Pt. able to move and feel feet. VSS. Antibiotic infusing, see MAR. [facility] device refilled with fresh ice and water. Garrido cath emptied, 1000ml, clear yellow urine. Pt. denies further needs at this time.
--- NOTE | 2019-03-07 06:05 | PC.NURSE ---
Pt. rates right knee pain at 04/11, [place] given see MAR. Pt. further needs at this time.
[2019-03-07 07:08] LABS: Basophils % 0.1 % (0.1-2.0); Eosinophils # 0.1 K/mm3 (0.0-0.4); Eosinophils % 0.4 % (0.1-12.0); Hematocrit 36.6 % (37.0-47.0); Hemoglobin 11.8 g/dL (12.2-16.2); Lymphocytes # 1.6 K/mm3 (0.7-4.5); Lymphocytes % 13.9 % (10-50); Mean Corpuscular HGB Conc 32.1 g/dL (31.8-35.4); Mean Corpuscular Hemoglobin 29.9 pg (27.0-31.2); Mean Corpuscular Volume 93.2 fl (81-99); Mean Platelet Volume 9.8 fl (7.4-10.4); Monocytes # 0.5 K/mm3 (0.1-1.0); Monocytes % 4.3 % (1.7-9.3); Neutrophils # 9.4 K/mm3 (1.8-7.8); Neutrophils % 81.2 % (37.0-80.0); Platelet Count 237 K/mm3 (142-424); Red Blood Count 3.93 M/mm3 (4.20-5.40); White Blood Count 11.5 K/mm3 (4.8-10.8)
[2019-03-07 07:23] LABS: Anion Gap 13.9 mEq/L (5-15); Blood Urea Nitrogen 8 mg/dL (7-18); Carbon Dioxide 25 mmol/L (21.0-32.0); Chloride 105 mmol/L (98-107); Creatinine Clearance Estimated 128 mL/min (50-200); Creatinine,Serum 0.75 mg/dL (0.55-1.02); Estimated Glomerular Filt Rate 81 ml/min (>60); GFR (African American) 98 ML/MIN (>60); Glucose 96 mg/dL (74-106); Potassium 3.9 mmoL/L (3.5-5.1); Sodium 140 mmol/L (136-145)
--- NOTE | 2019-03-07 07:26 | HMH.PHAVTE ---
[facility] Pharmacy VTE Monitoring - Patient Demographics Admission date: 03/06/19 Report Date: 03/07/19 Time: 07:26 Allergies/Adverse Reactions: Patient Allergies No Known Drug Allergies Allergy (Unknown, Verified 02/28/19 10:04) Height: 1.65 m Weight: 93.44 kg Patient Problems: Current Active Problems (Updated 03/06/19 @ 13:38 by Naomie Marie MD) Degenerative joint disease of knee, right (Acute) - VTE Risk Labs: VTE Related Lab Results Hgb 11.8 g/dL (12.2-16.2) L 03/07/19 06:40 Hct 36.6 % (37.0-47.0) L 03/07/19 06:40 Plt Count 237 K/mm3 (142-424) 03/07/19 06:40 - Prophylaxis VTE Prophylaxis Ordered?: Yes Types of VTE Prophylaxis: IPCS Thigh High, Pharmacological Location of Applied Device: Left Leg Pharmacologic Type: Enoxaparin - VTE Diagnosis Confirmed Treatment or plan recommended: Continue Current Treatment
--- NOTE | 2019-03-07 07:42 | HMH.PHAINT ---
MEDICATION RECONCILIATION COMPLETED ON PATIENT USING EXTERNAL FILL HISTORY FROM PHARMACY AND LIST FROM PHYSICIAN'S OFFICE. -JOHN TAPIAD
--- NOTE | 2019-03-07 08:25 | PC.NURSE ---
PT RESTING COMFORTABLY SINCE RECENT PAIN MEDICATION. PT LA POSTA, ABLE TO UNDERSTAND STAFF AND COMMUNICATES APPROPRIATELY
--- NOTE | 2019-03-07 09:00 | PC.NURSE ---
DR. GRANT AT BEDSIDE
--- NOTE | 2019-03-07 09:13 | PC.NURSE ---
PT AT BEDSIDE
--- NOTE | 2019-03-07 10:01 | HMH.OTEV ---
OT Inpatient Evaluation Rehab OT IP Evaluation Start: 03/06/19 12:25 Freq: ONCE Status: Complete Protocol: Document 03/07/19 09:55 ADAL (Rec: 03/07/19 10:01 [id number] Rehab OT IP Assessment Subjective History Pt agreeable to engage in therapy evaluation. Pt is a 54 year old female who had a R TKA yesterday morning with no complications. Pt reports prior to surgery she lived at home alone. Pt claims she was independent with all ADL's and IADL's. Pt does report she lives right beside her landlord who has offered to sit with her when she returns home from surgery. Pt does not have AE at home. Subjective I am scared to walk on it. Objective Upper Extremity Gross ROM WNL Bed Mobility bed mobility-scooting,bed mobility - supine/sit,bed mobility - rolling Assist Level Minimal x 1 (25% assist) Transfer Training Sit/Stand Transfer Assist Level Minimal x 1 (25% assist) decrease in endurance No Rehab OT IP prob,goals,plan Problems Date of Evaluation: 03/07/19 OT IP Problems Bed Mobility,Transfers,Gait, Balance,Self care,Safety Rehab Potential Rehab Potential Good Equipment Needs Assistive Devices Rolling / Wheeled Walker Plan OT intervention Plan Bed Mobility,Transfers,Gait, Balance,Self care,Safety, Therapeutic Exercise OT Plan Frequency Daily Duration LOS Discharge Goals Bed Mobility Ability Standby Assistance Sit to Stand Chair Transfer Ability Contact Guard/Hand Hold Chair Transfer Ability Contact Guard/Hand Hold Chair Transfer Technique Sit to/from Ambulatory Chair Transfer Assistive Devices Rolling Walker Self care skills fully toilet trained,uses utensils to feed self Feeding Ability Independent Lower Body Dressing Ability Assistance X1 Upper Body Dressing Ability Standby Assistance Bathing Ability Assistance x1 Performing Toilet Hygiene Ability Standby Assistance decrease in endurance No Discharge Plan OT Discharge Plan Pt would benefit from short term rehab following hosp
--- NOTE | 2019-03-07 11:09 | HMH.ORTHPN ---
Subjective Date: 03/07/19 Time: 09:00 Principal diagnosis: s/p R TKA Interval history: The patient is doing well this morning. She reports pain in the right knee, primarily in the posterior aspect, which is relieved with pain medication. No fevers or chills, no nausea, vomiting or diarrhea, no chest pain or shortness of breath. PN: Obj Ex Vital signs: Temp Pulse Resp BP Pulse Ox 98.7 F 85 16 118/69 98 03/07/19 08:00 03/07/19 08:00 03/07/19 08:00 03/07/19 08:00 03/07/19 08:25 - Constitutional no acute distress, average body habitus - Routine HEENT Exam Head: Present: normocephalic Eye: Present: EOMI ENT: Present: mucous membranes moist - Routine Respiratory Exam Present: CTA bilaterally. Absent: accessory muscle use, wheezes - Routine Cardiovascular Exam Present: RRR - Routine Abdominal Exam Present: soft. Absent: tenderness - Routine Extremities Exam Comments: R knee dressings intact, no drainage/strikethrough +DF/PF/EHL RLE SILT distally RLE palpable pedal pulses RLE, foot warm/well-perfused R calf soft, non-tender - Urinary Catheter Management Garrido Cath placed during this visit: yes Urethral indwelling: No Insertion date: 03/06/19 Insertion time: 07:32 Progress Note: A&P (1) Degenerative joint disease of knee, right Status: Acute Current Visit: Yes Assessment and Plan for All Diagnoses:: 54yo F POD 1 s/p R TKA -- WBAT RLE, no knee immobilizer -- elevate RLE, ice frequently with polar care device -- rest with knee in extension, pillow/bump under heel; work on stretching/extension -- SCDs BLE, encourage IS 10x/hr while awake -- pain control: norco po + IV morphine breakthrough -- finish 23hr jazmine-op antbx prophy -- DVT prophy: lovenox x14 days, then will switch to aspirin x1 mo -- Dr. Pitts on consult for medical management -- PT/OT eval -- care management consult for dispo planning
--- NOTE | 2019-03-07 11:10 | PC.NURSE ---
assisted back to bed at this time. polar pack remains in place on right knee.
--- NOTE | 2019-03-07 12:12 | HMH.CONS ---
*Admission Date: 03/06/19 *Reason for consult:: medical eval *History of present illness: 54yo F with R knee DJD refractory to conservative treatment, underwent R TKA this morning without complication. Admitted for routine post-op care, physical therapy and dispo planning. [facility] History I have reviewed the patient's past medical history: Yes Medical History: Reports:: Asthma Denies:: Cancer, Diabetes Mellitus Type 1, Diabetes Mellitus Type 2, Hypertension, Internal Pacemaker, Lung Disease, MRSA, Seizures *Have you ever received a pneumonia vaccine?: No *Have you received a flu vaccine this season?: No Other Medical History: Reports: Other. Denies: Hypothyroidism Laterality Cases: Right: Arthroscopy Knee Other Surgeries: Yes: Cholecystectomy, Hernia Repair, Thyroidectomy, Other. No: Pacemaker Amputation: No Fractures: No - *Social History Educational Level: Completed High School Smoking Status: Former smoker Tobacco Type: cigarettes Alcohol Intake: never Substance Use Type: denies use *Occupational Status:: employed Housing: house Household Members: spouse *Travel in the last 8 weeks: None - Psychiatric History Expresses thoughts of harming self/others: None Suicide Plan Description: No Plan Family Hx:: Asthma Review of Systems - Review of Systems Review of systems:: pertinent systems reviewed and negative unless documented below - Constitutional Denies fatigue - Eyes Denies change in vision - ENT Denies sore throat - *Cardiovascular Denies chest pain at rest - *Respiratory Denies chest congestion - *Gastrointestinal Denies abdominal pain - *Genitourinary Denies blood in urine - *Musculoskeletal Reports joint pain, Reports joint swelling - Integumentary/Breasts Denies rash - *Neurologic Denies headache(s) - Psychiatric Denies anxiety Meds Home Medications Medication Instructions Recorded Confirmed Type cyclobenzaprine 10 mg tablet 10 mg PO TID #90 tab 12/22/18 03/06/19 Rx diclofenac sodium 75 mg 75 mg PO BID #60 tab 01/11/19 03/06/19 Rx tablet,delayed release levothyroxine 150 mcg tablet 150 mcg PO DAILY #90 tab 01/11/19 03/06/19 Rx Gabapentin 800 mg PO TID 03/06/19 03/06/19 History Albuterol Sulfate [Albuterol 1.25 mg IH Q8HP PRN 03/07/19 03/07/19 History 0.042% 1.25mg/3mL neb] Phentermine HCl 37.5 mg PO DAILY 03/07/19 03/07/19 History Allergies Allergy/AdvReac Type Severity Reaction Status Date / Time No Known Drug Allergies Allergy Unknown Verified 02/28/19 10:04 Exam Vital signs and Labs for Last 24 Hours: Temp Pulse Resp BP Pulse Ox 98.7 F 85 16 118/69 98 03/07/19 08:00 03/07/19 08:00 03/07/19 08:00 03/07/19 08:00 03/07/19 08:25 Laboratory Results - last 24 hr 03/07/19 06:40: WBC 11.5 H, RBC 3.93 L, Hgb 11.8 L, Hct 36.6 L, MCV 93.2, MCH 29.9, MCHC 32.1, RDW 14.0, Plt Count 237, MPV 9.8, Neut % (Auto) 81.2 H, Lymph % (Auto) 13.9, Heard % (Auto) 4.3, Eos % (Auto) 0.4, Baso % (Auto) 0.1, Neut # (Auto) 9.4 H, Lymph # (Auto) 1.6, Heard # (Auto) 0.5, Eos # (Auto) 0.1, Baso # (Auto) 0.0 03/07/19 06:40: Sodium 140, Potassium 3.9, Chloride 105, Carbon Dioxide 25, Anion Gap 13.9, BUN 8, Creatinine 0.75, Estimated Creat Clear 128, Estimated GFR 81, Est GFR ( Amer) 98, Glucose 96, Calcium 8.0 L I & O for Last 24 hours: Intake & Output 03/05/19 03/06/19 03/07/19 03/08/19 11:59 11:59 11:59 11:59 Intake Total 3713 / 3713 Output Total 900 / 900 1250 / 1250 Balance -900 / -900 2463 / 2463 Weight 206 lb - Constitutional no acute distress, obese - *Routine HEENT Exam Head: Present: normocephalic Eye: Present: EOMI, PERRL ENT: Present: mucous membranes dry - *Routine Neck Exam Absent: JVD - *Routine Respiratory Exam Present: CTA bilaterally - *Routine Cardiovascular Exam Present: RRR, murmur - *Routine Abdominal Exam Present: soft - *Routine Extremities Exam Comments: s/p rt knee replacement - *Rout
--- NOTE | 2019-03-07 12:16 | P.CONS_ITS ---
*Admission Date: 03/06/19 *Reason for consult:: medical eval *History of present illness: 54yo F with R knee DJD refractory to conservative treatment, underwent R TKA this morning without complication. Admitted for routine post-op care, physical therapy and dispo planning. [facility] History I have reviewed the patient's past medical history: Yes Medical History: Reports:: Asthma Denies:: Cancer, Diabetes Mellitus Type 1, Diabetes Mellitus Type 2, Hypertension, Internal Pacemaker, Lung Disease, MRSA, Seizures *Have you ever received a pneumonia vaccine?: No *Have you received a flu vaccine this season?: No Other Medical History: Reports: Other. Denies: Hypothyroidism Laterality Cases: Right: Arthroscopy Knee Other Surgeries: Yes: Cholecystectomy, Hernia Repair, Thyroidectomy, Other. No: Pacemaker Amputation: No Fractures: No - *Social History Educational Level: Completed High School Smoking Status: Former smoker Tobacco Type: cigarettes Alcohol Intake: never Substance Use Type: denies use *Occupational Status:: employed Housing: house Household Members: spouse *Travel in the last 8 weeks: None - Psychiatric History Expresses thoughts of harming self/others: None Suicide Plan Description: No Plan Family Hx:: Asthma Review of Systems - Review of Systems Review of systems:: pertinent systems reviewed and negative unless documented below - Constitutional Denies fatigue - Eyes Denies change in vision - ENT Denies sore throat - *Cardiovascular Denies chest pain at rest - *Respiratory Denies chest congestion - *Gastrointestinal Denies abdominal pain - *Genitourinary Denies blood in urine - *Musculoskeletal Reports joint pain, Reports joint swelling - Integumentary/Breasts Denies rash - *Neurologic Denies headache(s) - Psychiatric Denies anxiety Meds Home Medications Medication Instructions Recorded Confirmed Type cyclobenzaprine 10 mg tablet 10 mg PO TID #90 tab 12/22/18 03/06/19 Rx diclofenac sodium 75 mg 75 mg PO BID #60 tab 01/11/19 03/06/19 Rx tablet,delayed release levothyroxine 150 mcg tablet 150 mcg PO DAILY #90 tab 01/11/19 03/06/19 Rx Gabapentin 800 mg PO TID 03/06/19 03/06/19 History Albuterol Sulfate [Albuterol 1.25 mg IH Q8HP PRN 03/07/19 03/07/19 History 0.042% 1.25mg/3mL neb] Phentermine HCl 37.5 mg PO DAILY 03/07/19 03/07/19 History Allergies Allergy/AdvReac Type Severity Reaction Status Date / Time No Known Drug Allergies Allergy Unknown Verified 02/28/19 10:04 Exam Vital signs and Labs for Last 24 Hours: Temp Pulse Resp BP Pulse Ox 98.7 F 85 16 118/69 98 03/07/19 08:00 03/07/19 08:00 03/07/19 08:00 03/07/19 08:00 03/07/19 08:25 Laboratory Results - last 24 hr 03/07/19 06:40: WBC 11.5 H, RBC 3.93 L, Hgb 11.8 L, Hct 36.6 L, MCV 93.2, MCH 29.9, MCHC 32.1, RDW 14.0, Plt Count 237, MPV 9.8, Neut % (Auto) 81.2 H, Lymph % (Auto) 13.9, Person % (Auto) 4.3, Eos % (Auto) 0.4, Baso % (Auto) 0.1, Neut # (Auto) 9.4 H, Lymph # (Auto) 1.6, Person # (Auto) 0.5, Eos # (Auto) 0.1, Baso # (Auto) 0.0 03/07/19 06:40: Sodium 140, Potassium 3.9, Chloride 105, Carbon Dioxide 25, Anion Gap 13.9, BUN 8, Creatinine 0.75, Estimated Creat Clear 128, Estimated GFR 81, Est GFR (Af
--- NOTE | 2019-03-07 13:25 | PC.NURSE ---
PT AT BEDSIDE
--- NOTE | 2019-03-07 13:50 | PC.NURSE ---
PT WITH INCREASED PAIN SINCE PT AT BEDSIDE, MEDICATED AT THIS TIME PER EMAR. RATES PAIN 10/10
--- NOTE | 2019-03-07 16:52 | PC.NURSE ---
PT AMBULATING IN ROOM, UP TO BSC WITHOUT DIFFICULTY
--- NOTE | 2019-03-07 17:01 | PC.NURSE ---
NO ACUTE CHANGES SINCE AM ASSESSMENT, PT PAIN WELL CONTROLLED. A&O X 3. LUNGS CTAB, HEART RATE REGULAR. NO EDEMA. BOWEL SOUNDS ACTIVE X 4 QUADS, PASSING FLATUS. VOIDING WITHOUT DIFFICULTY. RIGHT KNEE REMAINS WRAPPED OF DAY OF SURGERY. NO DRAINAGE TO DRESSINGS. POLAR PACK IN PLACE. PT SITTING UP IN BED SIDE CHAIR EATING REGULAR SUPPER TRAY. IV PATENT. AT BEDSIDE. NO NEEDS AT THIS TIME. WILL CONTINUE TO MONITOR
--- NOTE | 2019-03-07 18:38 | PC.NURSE ---
PT RESTING WITH EYES CLOSED, AWAKENS EASILY, DENIES NEEDS AT THIS TIME. POLAR PACK REFILLED. JOHN LIGHT WITHIN REACH
--- NOTE | 2019-03-07 19:03 | PC.NURSE ---
REPORT GIVEN TO Miranda HICKMAN RN
--- NOTE | 2019-03-07 19:35 | PC.NURSE ---
Pt. asleep in bed, respirations easy and even.
--- NOTE | 2019-03-07 21:25 | PC.NURSE ---
Nurse assessment completed. Dressing to right Knee remains C/D/I. Pt. reports pain at 5/10 requests pain medication, [place] 2 tab given, see DEC. Scheduled Lovenox and PM meds given see DEC. Pt. denies need to use bed side commode. Pt. tolerated well. Pt. denies further needs at this time.
--- NOTE | 2019-03-07 22:53 | PC.NURSE ---
Pt. request to use BSC. Pt. assisted to BSC with assist x2. Pt. tolerated fair. Pt. voided 400ml on BSC. Pt. assisted back to bed x2 assist. Pt. tolerated fair, rates pain at 3/10, reports gets worse when up. Pt. resting in bed, denies needs will continue to monitor.
--- NOTE | 2019-03-08 02:50 | PC.NURSE ---
Pt. requests to get up to BSC, Pt. up to BSC with assist x1. Pt. tolerated fair, reports pain at 7/10 requests pain medication. Pt. back to bed with assist x2. [place] 2 tab given see MAR. Pt. voided 250ml urine. Pt. denies further needs at this time.
[2019-03-08 04:50] VITALS: BP 125/73; PULSE 88; RESP 12; TEMP 37.1; O2SAT 93
--- NOTE | 2019-03-08 04:50 | PC.NURSE ---
Nurse assessment completed, no acute changes since pm assessment. Pt. denies pain at this time, resting in bed, A&O X3, Lungs Clear to auscultation. Bowel sounds present, pt. reports passing flatus, no bowel movement. Abd soft and nontender. Swelling noted on right ankle and foot, leg elevated. Pt. reports tender area on thigh above elvin bandage, no bruising noted. Dressing on right knee remains C/D/I. Pt. denies needs at this time.
--- NOTE | 2019-03-08 06:15 | PC.NURSE ---
Lab in with pt. at this time.
--- NOTE | 2019-03-08 06:26 | PC.NURSE ---
Pt. assisted x1 to BSC. Tolerated well. Pt. voided 800ml. Pt. assisted back to bed x1 assist. Polar pack refilled. Pt. rates pain at 5/10 states it's fine . Pt. denies needs.
[2019-03-08 06:55] LABS: Anion Gap 11.5 mEq/L (5-15); Blood Urea Nitrogen 6 mg/dL (7-18); Calcium 7.8 mg/dL (8.5-10.1); Carbon Dioxide 26 mmol/L (21.0-32.0); Chloride 106 mmol/L (98-107); Creatinine Clearance Estimated 141 mL/min (50-200); Creatinine,Serum 0.68 mg/dL (0.55-1.02); Estimated Glomerular Filt Rate 91 ml/min (>60); GFR (African American) 110 ML/MIN (>60); Glucose 103 mg/dL (74-106); Potassium 3.5 mmoL/L (3.5-5.1); Sodium 140 mmol/L (136-145)
[2019-03-08 06:59] LABS: Basophils % 0.1 % (0.1-2.0); Eosinophils # 0.1 K/mm3 (0.0-0.4); Eosinophils % 1.1 % (0.1-12.0); Hematocrit 28.3 % (37.0-47.0); Lymphocytes # 1.5 K/mm3 (0.7-4.5); Lymphocytes % 20.6 % (10-50); Mean Corpuscular HGB Conc 33.6 g/dL (31.8-35.4); Mean Corpuscular Hemoglobin 29.1 pg (27.0-31.2); Mean Corpuscular Volume 86.8 fl (81-99); Mean Platelet Volume 9.5 fl (7.4-10.4); Monocytes # 0.5 K/mm3 (0.1-1.0); Monocytes % 7.2 % (1.7-9.3); Neutrophils # 5.2 K/mm3 (1.8-7.8); Platelet Count 176 K/mm3 (142-424); Red Blood Count 3.27 M/mm3 (4.20-5.40); Red Cell Distribution Width 13.7 % (11.5-17.5); White Blood Count 7.3 K/mm3 (4.8-10.8)
[2019-03-08 07:07] LABS: Hemoglobin 9.6 g/dL (12.2-16.2)
--- NOTE | 2019-03-08 07:10 | PC.NURSE ---
Report received from Miranda Hernandez RN.
--- NOTE | 2019-03-08 07:15 | PC.NURSE ---
Eating breakfast at this time denies any needs.
--- NOTE | 2019-03-08 07:35 | PC.NURSE ---
Pt assessed at this time. States pain 6/10 on verbal scale and medicated per EMAR. Edema noted to R pedal and tibial. Pulses palpable to R foot and pt is able to wiggle toes. Bowel sounds present. Pt has been passing gas but no BM yet. Lungs clear to auscultation. Pt denies any further needs at this time.
[2019-03-08 08:00] VITALS: BP 133/71; PULSE 93; RESP 18; TEMP 36.8; O2SAT 95
--- NOTE | 2019-03-08 08:05 | PC.NURSE ---
Maintenance installing trapeze over bed at this time.
--- NOTE | 2019-03-08 08:24 | PC.NURSE ---
Addendum entered by Renee Oliveira RN 03/08/19 10:10: Physical therapy at bedside at this time. Assisting pt ambulate with walker to chair that is located across the room. PT placed clean trash can upside down and placed a pillow and blanket on top of it to use to elevate pt R leg. Polar pac was taken off by PT and not replaced. Pt given an ice pack to place on knee at this time. Original Note: Physical therapy at bedside at this time.
--- NOTE | 2019-03-08 08:31 | PC.NURSE ---
Therapy with pt at this time. RN unhooked IV. Pt was able to put both socks on and ambulated with rolling walker to chair that was across the room with standby assist.
--- NOTE | 2019-03-08 08:49 | PC.NURSE ---
Dr. Marie here and removed pt dressing and applied a new one. States pt is to exercise leg more and possible discharge tomorrow.
--- NOTE | 2019-03-08 09:05 | PC.NURSE ---
Addendum entered by Renee Oliveira RN 03/08/19 10:13: Medicated per EMAR at this time. Pt sitting in chair with R leg elevated and under a pillow that is on a upside down trash can per PT doing. Denies any further needs at this time. Original Note: Medicated per EMAR at this time. Pt sitting in chair with R leg elevated and under a pillow. Denies any further needs at this time.
--- NOTE | 2019-03-08 09:29 | HMH.ORTHPN ---
Subjective Date: 03/08/19 Time: 09:00 Principal diagnosis: s/p R TKA Interval history: The patient is doing well this morning, sitting in bedside chair with RLE elevated. Reports soreness in knee but progressing well with PT. No f/c, no n/v/d, no cp/soa. PN: Obj Ex Vital signs: Temp Pulse Resp BP Pulse Ox 98.3 F 93 H 18 133/71 95 03/08/19 08:00 03/08/19 08:00 03/08/19 08:00 03/08/19 08:00 03/08/19 08:00 - Constitutional no acute distress - Routine Extremities Exam Comments: R knee dressings intact, no drainage/strikethrough +DF/PF/EHL RLE SILT distally RLE palpable pedal pulses RLE, foot warm/well-perfused R calf soft, non-tender - Urinary Catheter Management Garrido Cath placed during this visit: yes Urethral indwelling: No Insertion date: 03/06/19 Insertion time: 07:32 Progress Note: A&P (1) Degenerative joint disease of knee, right Status: Acute Current Visit: Yes (2) Obesity (BMI 30.0-34.9) Status: Acute Current Visit: Yes (3) Hypothyroidism (acquired) Status: Acute Current Visit: Yes (4) Anemia Status: Acute Current Visit: Yes (5) History of rib fracture Status: Acute Current Visit: Yes Assessment and Plan for All Diagnoses:: 54yo F POD 2 s/p R TKA -- WBAT RLE, no knee immobilizer -- elevate RLE, ice frequently with polar care device -- rest with knee in extension, pillow/bump under heel; work on stretching/extension -- SCDs BLE, encourage IS 10x/hr while awake -- pain control: norco po + IV morphine breakthrough -- DVT prophy: lovenox x14 days, then will switch to aspirin x1 mo -- Dr. Pitts on consult for medical management -- continue PT/OT -- care management consult for dispo planning
--- NOTE | 2019-03-08 10:14 | PC.NURSE ---
[facility] social services manager at bedside at this time.
--- NOTE | 2019-03-08 10:37 | PC.NURSE ---
Pt ambulated with rolling walker to the BR and voided by herself. Pt was reminded to call out for help with ambulation in case she was to fall. Pt now lying in bed with polar pac in place on R knee. Thigh skud located on L leg. LR infused in RFA 20G IV @ 75ml/hr. Pt is to be moved to Medical Surgical floor. Awaiting RN to call to receive report. Denies any further needs.
--- NOTE | 2019-03-08 10:48 | PC.NURSE ---
Pt will need a rolling walker rather than a cane for gait and mobility issues due to R total knee.
--- NOTE | 2019-03-08 10:50 | SW/DCPLANNER ---
I spoke with this patient again this morning regarding discharge plans. Patient stated that she intends to return home where she has plenty of help (lives with her spouse). Patient stated that she will need a rolling walker at home. Patient already has a BSC and family will provide a shower chair. Patient stated that due to her having to work she prefer to receive PT at home through home health services. Patient did not have a preference as to which agency for home health. I did explain that patient could have an out of pocket expense and patient just asked that she be informed prior to set up. I have also explained outpatient therapy at [facility] and patient has stated that she prefer home health unless too expensive. I have relayed this message to MD. Plan is for this patient to discharge home tomorrow and patient agrees with this plan. I have faxed patient information to [facility] for a rolling walker. I will also fax patient information to home health once order is in and patient is ready for discharge home. I will follow up with Iris and this patient in the AM.
--- NOTE | 2019-03-08 10:55 | PC.NURSE ---
Report given to Roz Sousa RN. at this time.
[2019-03-08 16:00] VITALS: BP 148/77; PULSE 95; RESP 17; TEMP 36.6; O2SAT 98
[2019-03-08 20:00] VITALS: BP 136/75; PULSE 111; RESP 16; TEMP 37.7; O2SAT 95
[2019-03-09 04:00] VITALS: BP 129/69; PULSE 98; RESP 12; TEMP 36.6; O2SAT 96
--- NOTE | 2019-03-09 04:24 | PC.NURSE ---
PT HAS SLEPT. AMBULATING WITH WALKER SUFFICIENTLY. RIGHT KNEE WITH DRSG C,D,I. POLAR PACK IN USE. POSITIVE PEDAL PULSES RIGHT FOOT. RECEIVED PAIN MED TIMES 2 FOR RIGHT KNEE PAIN. PT REFUSED SCUDS. VOIDING WITHOUT DIFFICULTY. ADEQUATE PO INTAKE.
[2019-03-09 05:00] VITALS: BMI 34.0
[2019-03-09 07:08] LABS: Basophils % 0.3 % (0.1-2.0); Eosinophils # 0.2 K/mm3 (0.0-0.4); Eosinophils % 1.8 % (0.1-12.0); Hematocrit 28.9 % (37.0-47.0); Hemoglobin 9.3 g/dL (12.2-16.2); Lymphocytes # 1.8 K/mm3 (0.7-4.5); Lymphocytes % 20.2 % (10-50); Mean Corpuscular HGB Conc 32.2 g/dL (31.8-35.4); Mean Corpuscular Hemoglobin 28.1 pg (27.0-31.2); Mean Corpuscular Volume 87.3 fl (81-99); Mean Platelet Volume 8.6 fl (7.4-10.4); Monocytes # 0.6 K/mm3 (0.1-1.0); Monocytes % 6.3 % (1.7-9.3); Neutrophils # 6.2 K/mm3 (1.8-7.8); Neutrophils % 71.4 % (37.0-80.0); Platelet Count 230 K/mm3 (142-424); Red Blood Count 3.31 M/mm3 (4.20-5.40); Red Cell Distribution Width 13.6 % (11.5-17.5); White Blood Count 8.7 K/mm3 (4.8-10.8)
[2019-03-09 07:19] LABS: Anion Gap 11.7 mEq/L (5-15); Blood Urea Nitrogen 7 mg/dL (7-18); Calcium 8.3 mg/dL (8.5-10.1); Carbon Dioxide 29 mmol/L (21.0-32.0); Chloride 103 mmol/L (98-107); Creatinine Clearance Estimated 132 mL/min (50-200); Creatinine,Serum 0.72 mg/dL (0.55-1.02); Estimated Glomerular Filt Rate 85 ml/min (>60); GFR (African American) 103 ML/MIN (>60); Glucose 101 mg/dL (74-106); Potassium 3.7 mmoL/L (3.5-5.1); Sodium 140 mmol/L (136-145)
[2019-03-09 08:00] VITALS: BP 124/76; PULSE 108; RESP 18; TEMP 37.3; O2SAT 96
--- NOTE | 2019-03-09 08:33 | NVE_ITS ---
Venous Exam Indications: 782.3 Edema. 729.5 Pain in limb. IMPRESSIONS 1. There is no evidence of significant Reflux. 2. No evidence of deep or superficial vein thrombosis involving the right lower extremity History: Risk factors: Recent surgery: total knee. Right lower extremity venous duplex evaluation. Doppler flow study including spectral analysis, color and farr scale imaging. Location: Bedside. Patient status: Inpatient. CRITICAL FINDINGS - Reported to: delfino medrano - Read back and verified. - 03/09/19 1468 - None Tables: Venous flow and imaging: + +-------+ + Location Overall Flow properties + +-------+ + Right common femoral Patent Normal phasicity; spontaneous; normal augmentation; compressible + +-------+ + Right saphenofemoral junction Patent Compressible + +-------+ + Right profunda femoral Patent Compressible + +-------+ + Right femoral Patent Normal phasicity; spontaneous; normal augmentation; compressible + +-------+ + Right greater saphenous Patent Normal phasicity; spontaneous; normal augmentation; compressible + +-------+ + Right popliteal Patent Normal phasicity; spontaneous; normal augmentation; compressible + +-------+ + Right posterior tibial Patent Compressible + +-------+ + Right peroneal Patent Compressible + +-------+ + Right gastrocnemius Patent Compressible + +-------+ + Right soleal Patent Compressible + +-------+ + (Report amended ) Electronically signed by: Delvis Evans [id number]
--- NOTE | 2019-03-09 08:35 | P.PN_ITS ---
Internal Medicine - PN: Subj *Date: 03/09/19 *Time: 08:32 Interval history: pt seen rt lower ext swollen,red and warm to touch Exam Vital signs and Labs for Last 24 Hours: Temp Pulse Resp BP Pulse Ox 99.2 F 108 H 18 124/76 96 03/09/19 08:00 03/09/19 08:00 03/09/19 08:00 03/09/19 08:00 03/09/19 08:00 Laboratory Results - last 24 hr 03/09/19 06:52: WBC 8.7, RBC 3.31 L, Hgb 9.3 L, Hct 28.9 L, MCV 87.3, MCH 28.1, MCHC 32.2, RDW 13.6, Plt Count 230 D, MPV 8.6, Neut % (Auto) 71.4, Lymph % (Auto) 20.2, [place] % (Auto) 6.3, Eos % (Auto) 1.8, Baso % (Auto) 0.3, Neut # (Auto) 6.2, Lymph # (Auto) 1.8, [place] # (Auto) 0.6, Eos # (Auto) 0.2, Baso # (Auto) 0.0 03/09/19 06:52: Sodium 140, Potassium 3.7, Chloride 103, Carbon Dioxide 29, Anion Gap 11.7, BUN 7, Creatinine 0.72, Estimated Creat Clear 132, Estimated GFR 85, Est GFR ( Amer) 103, Glucose 101, Calcium 8.3 L I & O for Last 24 hours: Intake & Output 03/06/19 03/07/19 03/08/19 03/09/19 11:59 11:59 11:59 11:59 Intake Total 3713 / 3713 1121 / 1121 1680 / 1680 Output Total 900 / 900 1250 / 1250 2049 / 2049 900 / 900 Balance -900 / -900 2463 / 2463 -929 / -929 780 / 780 Weight 206 lb 204 lb 3 oz - Constitutional no acute distress - *Routine HEENT Exam Head: Present: normocephalic Eye: Present: PERRL ENT: Present: mucous membranes moist - *Routine Neck Exam Present: supple. Absent: lymphadenopathy - *Routine Respiratory Exam Present: CTA bilaterally - *Routine Cardiovascular Exam Present: RRR - *Routine Abdominal Exam Present: soft, normoactive bowel sounds. Absent: tenderness - *Routine Extremities Exam Present: edema, normal capillary refill, tenderness. Absent: cyanosis, clubbing Comments: rt knee swollen,red, warm to touch - *Routine Skin Exam Present: warm. Absent: rash Comments: dressing to rt knee - *Routine Neurological Exam Present: alert, oriented X3 - Routine Psychiatric Exam Present: normal affect Assessment and Plan (1) Degenerative joint disease of knee, right Current visit: Yes Status: Acute Category: Medical Code(s): M17.11 - Unilateral primary osteoarthritis, right knee (2) Obesity (BMI 30.0-34.9) Current visit: Yes Status: Acute Category: Medical Code(s): E66.9 - Obesity, unspecified (3) Hypothyroidism (acquired) Current visit: Yes Status: Acute Category: Medical Code(s): E03.9 - Hypothyroidism, unspecified (4) Anemia Current visit: Yes Status: Acute Qualifiers: Anemia type: unspecified type Qualified Code(s): D64.9 - Anemia, unspecified Category: Medical Code(s): D64.9 - Anemia, unspecified (5) History of rib fracture Current visit: Yes Status: Acute Category: Medical Code(s): Z87.81 - Personal history of (healed) traumatic fracture - Assessment and plan all Dx Assessment and Plan for all problems:: Rounded with Dr. Pitts all orders per Gisselle Venous Doppler of lower extremities to rule out DVT
--- NOTE | 2019-03-09 12:16 | SUR.OPER ---
Cement used on patient: [id number] [employer] r+g pro 75 Lot # [id number] Expiration 12/31/20
--- NOTE | 2019-03-09 12:29 | HMH.ORTHPN ---
Subjective Date: 03/09/19 Time: 12:00 Principal diagnosis: s/p R TKA Interval history: The patient is doing very well. Pain is controlled with medication. She reports some soreness and swelling in the knee, and in conjunction with knee warmth, an ultrasound was ordered this morning by Dr. Pitts to r/o DVT. It was negative. She has not had any fever or chills, no drainage from her dressing. Working well with PT and ambulating with RW. PN: Obj Ex Vital signs: Temp Pulse Resp BP Pulse Ox 99.2 F 108 H 18 124/76 96 03/09/19 08:00 03/09/19 08:00 03/09/19 08:00 03/09/19 08:00 03/09/19 08:00 - Constitutional no acute distress, cooperative - Routine HEENT Exam Head: Present: normocephalic Eye: Present: EOMI ENT: Present: mucous membranes moist - Routine Respiratory Exam Present: CTA bilaterally. Absent: accessory muscle use, wheezes - Routine Cardiovascular Exam Present: RRR - Routine Abdominal Exam Present: soft. Absent: tenderness - Routine Extremities Exam Comments: R knee dressings intact, no drainage/strikethrough --> dressing removed, incision c/d/i w/o drainage, no periwound erythema or ecchymosis +DF/PF/EHL RLE SILT distally RLE palpable pedal pulses RLE, foot warm/well-perfused R calf soft, non-tender; Shira's negative mild soft tissue swelling/warmth to R knee, expected per post-op state - Routine Neurological Exam Present: alert, oriented X3, normal tone, normal speech. Absent: sensory deficit, motor deficit, altered mental status, hearing grossly intact (hearing impaired ) - Urinary Catheter Management Garrido Cath placed during this visit: yes Urethral indwelling: No Insertion date: 03/06/19 Insertion time: 07:32 Progress Note: A&P (1) Degenerative joint disease of knee, right Status: Acute Current Visit: Yes (2) Obesity (BMI 30.0-34.9) Status: Acute Current Visit: Yes (3) Hypothyroidism (acquired) Status: Acute Current Visit: Yes (4) Anemia Status: Acute Current Visit: Yes (5) History of rib fracture Status: Acute Current Visit: Yes Assessment and Plan for All Diagnoses:: 54yo F POD 3 s/p R TKA -- d/c home today with home health/PT -- continue WBAT RLE with RW, emphasizing ROM/stretching of the knee -- elevate/ice the knee frequently to help with swelling/inflammation -- will place [place] hose to help with edema -- continue lovenox x14 days total, will then switch to aspirin x4 weeks -- continue pain medication PRN -- f/u with me at 2 weeks post-op
--- NOTE | 2019-03-09 13:12 | SW/DCPLANNER ---
Followed up with this patient this afternoon regarding discharge plans. [facility] has already delivered the rolling walker that I ordered for this patient yesterday. Patient stated that she has a BSC at home but could benefit from a shower chair, I explained this is private pay and patient stated that she would ask family member for a shower chair. Patient stated yesterday that she prefer to go home with home health services. Once I spoke with patient today her and decided it would be easier for patient to return to [facility] for outpatient physical therapy after discharge. Discharge orders were already put in but I have spoke with Dr Marie and she has since signed outpatient PT form for this patient. Patient will return to [facility] for outpatient PT and go home with a rolling walker. Patient and concurred they have no other needs at this time. Patient will NOT have home health services. Patient is set to discharge home today.
--- NOTE | 2019-03-09 13:34 | PC.NURSE ---
report given to bg
--- NOTE | 2019-03-09 15:01 | HMH.PHAINT ---
DISCHARGE COUNSELING PROVIDED TO PATIENT FOR ALL MEDICATIONS. DISCUSSED ALL NEW AND CONTINUED MEDICATIONS. PATIENT VERBALIZED UNDERSTANDING AND DID NOT HAVE ANY QUESTIONS.
--- NOTE | 2019-03-09 17:24 | HMH.DCSUM ---
General - General Admission date:: 03/06/19 Discharge date: 03/09/19 HPI HPI: 54-year-old female with right knee degenerative joint disease, refractory to the use of NSAIDs, ice, bracing, activity modification, viscosupplementation injections and corticosteroid injections. Her pain had increased to the point where it was adversely affecting her quality of life and she desired surgical intervention. She underwent right total knee arthroplasty on 03/06/2019 without complication. She was admitted postoperatively to the medical-surgical floor for routine postoperative care, physical therapy, and pain medication. Hospital Course Hospital Course: The patient was admitted postoperatively and home medications restarted. Pain medication was administered as needed and the knee was elevated/iced frequently. She was started on Lovenox for anticoagulation on postoperative day 1 and SCDs were worn throughout her stay. Garrido catheter was removed on postoperative day 1. She was seen the day of surgery for mobilization by physical therapy and PT/OT sessions were conducted on a twice daily basis throughout her stay. She had some pain and swelling in the right knee on postoperative day [address] Pitts was concerned for possible DVT so ultrasound was ordered; this was negative. She had no medical issues during her stay, pain was well-controlled on oral medication, she was taking good p.o. intake, and working well with physical therapy, so she was deemed appropriate for discharge on postoperative day 3. She was discharged home in the care of her with home health physical therapy plan; the patient instead elected to do outpatient PT at [facility] this was arranged. Objective Vital signs: Temp Pulse Resp BP Pulse Ox 99.2 F 108 H 18 124/76 96 03/09/19 08:00 03/09/19 08:00 03/09/19 08:00 03/09/19 08:00 03/09/19 08:00 no acute distress - *Routine HEENT Exam Head: Present: normocephalic Eye: Present: EOMI ENT: Present: mucous membranes moist - *Routine Respiratory Exam Present: CTA bilaterally. Absent: accessory muscle use, rhonchi, wheezes - *Routine Cardiovascular Exam Present: RRR - *Routine Abdominal Exam Present: soft. Absent: tenderness - *Routine Extremities Exam Comments: R knee dressings intact, no drainage/strikethrough --> dressing removed, incision c/d/i w/o drainage, no periwound erythema or ecchymosis +DF/PF/EHL RLE SILT distally RLE palpable pedal pulses RLE, foot warm/well-perfused R calf soft, non-tender; Shira's negative mild soft tissue swelling/warmth to R knee, expected per post-op state - *Routine Skin Exam Absent: erythema, ecchymosis - *Routine Neurological Exam Present: alert, oriented X3, normal tone. Absent: sensory deficit, motor deficit, altered mental status Results Labs on day of discharge: Labs from last 24 hours 03/09/19 03/09/19 06:52 06:52 WBC 8.7 RBC 3.31 L Hgb 9.3 L Hct 28.9 L MCV 87.3 MCH 28.1 MCHC 32.2 RDW 13.6 Plt Count 230 D MPV 8.6 Neut % (Auto) 71.4 Lymph % (Auto) 20.2 [place] % (Auto) 6.3 Eos % (Auto) 1.8 Baso % (Auto) 0.3 Neut # (Auto) 6.2 Lymph # (Auto) 1.8 [place] # (Auto) 0.6 Eos # (Auto) 0.2 Baso # (Auto) 0.0 Sodium 140 Potassium 3.7 Chloride 103 Carbon Dioxide 29 Anion Gap 11.7 BUN 7 Creatinine 0.72 Estimated Creat Clear 132 Estimated GFR 85 Est GFR ( Amer) 103 Glucose 101 Calcium 8.3 L DS: Diagnosis - Discharge Diagnosis (1) Degenerative joint disease of knee, right Status: Acute (2) Obesity (BMI 30.0-34.9) Status: Acute (3) Hypothyroidism (acquired) Status: Acute (4) Anemia Status: Acute (5) History of rib fracture Status: Acute Discharge Plan - Patient Discharge Instructions ACTIVITY: Continue current activity (WBAT RLE with RW, continue exercises) DIET: continue same diet Additional Instruc
--- NOTE | 2019-03-09 17:28 | P.DS_ITS ---
General - General Admission date:: 03/06/19 Discharge date: 03/09/19 HPI HPI: 54-year-old female with right knee degenerative joint disease, refractory to the use of NSAIDs, ice, bracing, activity modification, viscosupplementation injections and corticosteroid injections. Her pain had increased to the point where it was adversely affecting her quality of life and she desired surgical intervention. She underwent right total knee arthroplasty on 03/06/2019 without complication. She was admitted postoperatively to the medical-surgical floor for routine postoperative care, physical therapy, and pain medication. Hospital Course Hospital Course: The patient was admitted postoperatively and home medications restarted. Pain medication was administered as needed and the knee was elevated/iced frequently. She was started on Lovenox for anticoagulation on postoperative day 1 and SCDs were worn throughout her stay. Garrido catheter was removed on postoperative day 1. She was seen the day of surgery for mobilization by physical therapy and PT/OT sessions were conducted on a twice daily basis throughout her stay. She had some pain and swelling in the right knee on postoperative day [address] Pitts was concerned for possible DVT so ultrasound was ordered; this was negative. She had no medical issues during her stay, pain was well-controlled on oral medication, she was taking good p.o. intake, and working well with physical therapy, so she was deemed appropriate for discharge on postoperative day 3. She was discharged home in the care of her with home health physical therapy plan; the patient instead elected to do outpatient PT at [facility] this was arranged. Objective Vital signs: Temp Pulse Resp BP Pulse Ox 99.2 F 108 H 18 124/76 96 03/09/19 08:00 03/09/19 08:00 03/09/19 08:00 03/09/19 08:00 03/09/19 08:00 no acute distress - *Routine HEENT Exam Head: Present: normocephalic Eye: Present: EOMI ENT: Present: mucous membranes moist - *Routine Respiratory Exam Present: CTA bilaterally. Absent: accessory muscle use, rhonchi, wheezes - *Routine Cardiovascular Exam Present: RRR - *Routine Abdominal Exam Present: soft. Absent: tenderness - *Routine Extremities Exam Comments: R knee dressings intact, no drainage/strikethrough --> dressing removed, incision c/d/i w/o drainage, no periwound erythema or ecchymosis +DF/PF/EHL RLE SILT distally RLE palpable pedal pulses RLE, foot warm/well-perfused R calf soft, non-tender; Shira's negative mild soft tissue swelling/warmth to R knee, expected per post-op state - *Routine Skin Exam Absent: erythema, ecchymosis - *Routine Neurological Exam Present: alert, oriented X3, normal tone. Absent: sensory deficit, motor deficit, altered mental status Results Labs on day of discharge: Labs from last 24 hours 03/09/19 03/09/19 06:52 06:52 WBC 8.7 RBC 3.31 L Hgb 9.3 L Hct 28.9 L MCV 87.3 MCH 28.1 MCHC 32.2 RDW 13.6 Plt Count 230 D MPV 8.6 Neut % (Auto) 71.4 Lymph % (Auto) 20.2 [place] % (Auto) 6.3 Eos % (Auto) 1.8 Baso % (Auto) 0.3 Neut # (Auto) 6.2 Lymph # (Auto) 1.8 [place] # (Auto) 0.6 Eos # (Auto) 0.2 Baso # (Auto) 0.0 Sodium 140
== END 2019-03-09 14:15 | disposition home or self-care (01) | DRG 470 ==
LOC: 2ND 03-07 11:15 → OB 03-07 11:15 → 2ND 03-08 10:53
PROVIDERS: Admitting Provider Orthopaedic Surgery; PCP Emergency Medicine; Visit Provider Orthopaedic Surgery
PROC: (CPT 27447; principal; 2019-03-06 07:30)
DX: M17.11 Unilateral primary osteoarthritis, right knee (principal); E03.9 Hypothyroidism, unspecified; D64.9 Anemia, unspecified; Z79.899 Other long term (current) drug therapy
CPT/HCPCS: 27447; 36415; 73560; 80048; 81001; 85025; 86850; 93005; 93971; 97110; 97116; 97161; 97166; 97530; 97535; C1713; C1776; J2405; J2704

== ENCOUNTER → 2019-03-16 13:23 | Outpatient (CLI) | payer OTHER, SELFPAY ==
[2019-03-16 15:02] LABS: Amphetamine/Metha Screen,Urine Negative ng/mL (<1000); Barbiturates Screen,Urine Negative ng/mL (<200); Benzodiazepines Screen,Urine Negative ng/mL (<200); Cannabinoid Screen,Urine Negative ng/mL (<50); Cocaine Screen,Urine Negative ng/mL (<300); Methadone Screen,Urine Negative ng/mL (<300); Opiate Screen,Urine Positive ng/mL (<300); Phencyclidine Screen,Urine Negative ng/mL (<25)
== END ==
PROVIDERS: Visit Provider Emergency Medicine
DX: Z79.899 Other long term (current) drug therapy (principal)
CPT/HCPCS: 80305

== ENCOUNTER → 2019-03-21 09:51 | Outpatient (CLI) | payer OTHER, SELFPAY ==
--- NOTE | 2019-03-21 09:57 | XR_ITS ---
XR knee RT 2V HISTORY: Follow-up knee replacement ITS.REASON: AP + Lateral standing ORDERING PHYSICIAN: Naomie Marie MD PATIENT AGE: 54 years COMPARISON: None FINDINGS: Standing AP and lateral views are performed showing good alignment. There has been prior total knee replacement. There is good alignment of the prosthesis. There is once again noted what appears to represent bony fragments over the intramedullary region of the distal femur not significant change. Suprapatellar effusion is noted. There is some persisting gas within the knee joint space anteriorly. IMPRESSION: 1. Good alignment status post total knee replacement. 2. Persistent small amount of gas in the anterior knee joint space..
== END ==
PROVIDERS: PCP Physician Assistant; Visit Provider Orthopaedic Surgery
DX: M17.11 Unilateral primary osteoarthritis, right knee (principal)
CPT/HCPCS: 73560

== ENCOUNTER → 2019-04-16 13:13 | Outpatient (CLI) | payer OTHER, SELFPAY ==
--- NOTE | 2019-04-16 13:18 | XR_ITS ---
XR knee RT 3V HISTORY: Follow-up knee replacement ITS.REASON: post op TKA ORDERING PHYSICIAN: Naomie Marie MD PATIENT AGE: 54 years COMPARISON: 03/21/2019 FINDINGS: No change status post total knee replacement with good alignment. The intramedullary opacities of the distal femur once again noted unchanged. No orthopedic complication is apparent IMPRESSION: Good alignment status post total knee replacement
== END ==
PROVIDERS: PCP Emergency Medicine; Visit Provider Orthopaedic Surgery
DX: Z96.651 Presence of right artificial knee joint (principal)
CPT/HCPCS: 73562

== ENCOUNTER 2019-05-17 17:30 | Outpatient (RCR) | payer OTHER, SELFPAY ==
--- NOTE | 2019-03-14 15:14 | HMH.PTOPEV ---
PT Outpatient Evaluation Rehab PT Outpatient Evaluation Start: 03/14/19 14:26 Freq: Status: Active Protocol: Document 03/14/19 14:27 KWESIYENNIFER (Rec: 03/14/19 15:14 BHARAT [id number]) Electronically Signed By Bertin Thompson, PT 03/14/19 14:27 Outpatient Therapy Subjective History Subjective History Patient is a 54 year old female presenting to outpatient PT with reports of R post-surgical knee pain S/P R TKA performed on 03/10/19. Pt reports hx of knee pain for approximately 13 years prior to TKA. Hx of 2 previous arthroscopic R knee surgeries. Pt ambulates into clinic with RW. Comorbidites include hearing impairment and asthma . Surgical hx includes cholecystectomy, and bladder sling. Pt set to return to MD 03/21/19. Chief Complaint Pain,Stiff,Swelling,Weakness Symptom Type Ache,Sharp Symptoms Relieved By Rest/Positioning,Ice, Prescription Meds Symptoms Aggravated By Standing,Physical Activity, Walking Prior Functional Limitations Housework,Standing,Squatting, Recreation Activity,Walking, Stairs Current Functional Limitations Housework,Dressing,Driving, Sleeping,Standing,Sitting, Squatting,Recreation Activity, Walking,Stairs,Balance,Bending /Stooping Symptom Description Constant but Variable Level of pain today (0-10) 9 Pain scale - at its best (0-10) 9 Pain scale - at its worst (0-10) 10 Hip/Knee Eval Gait Observation General Gait Pattern Observation Decrease Weight Bear (R) Assistive Device Assistive Devices Rolling / Wheeled Walker Palpation Tenderness right Knee Palpation Finding Tenderness Knee Palpation Overall Comment med/lat joint line, popliteal fossa MMT Hip Strength Reason Not Measured Orthopedic Precautions Knee Strength Reason Not Measured Orthopedic Precautions ROM Hip ROM Reason Not Measured Within Functional Limits Knee Extension Active Range of Motion ( -11 degrees) Knee Extension Passive Range of Motion ( -6 degrees) Knee Flexion Active Range of Motion ( 49 degrees) Knee Flexion Passive Range of
--- NOTE | 2019-04-17 17:20 | HMH.RHREAS ---
Rehab Reassessment Rehab OP Re-assessment Start: 04/17/19 17:11 Freq: Status: Active Protocol: Document 04/17/19 17:12 BHARAT (Rec: 04/17/19 17:19 BHARAT [id number]) Electronically Signed By Bertin Thompson, PT 04/17/19 17:12 Rehab Re-assessment Subjective Subjective Pt reports pain after VALERIE to R knee. Objective Objective Notes PROM: 0-120 MMT: not measured Pain: 06/12 post Rx. Neuro WNL Assessment Progress Assessment Slower Than Expected Assessment Notes Pt underwent VALERIE secondary to lack of progression of ROM. Improvements noted as above. Persistent funcitonal limitations noted with all standing/ambulatory activity. Patient goals met None Goals Not Met ALL Revised Goals NA Plan Plan Continue with POC Frequency of Therapy 2-3x/week Duration of therapy 6 weeks Time and Billing Re-Eval Time 15 Re-Eval Billing Units 1 PHYSICIAN CERTIFICATION: I certify the specified therapy services for Mya Lerner are required, authorized, and reviewed every 30 days.
== END 2019-06-17 17:35 | disposition home or self-care (01) ==
LOC: PT 17:30
PROVIDERS: Visit Provider Orthopaedic Surgery
DX: Z96.651 Presence of right artificial knee joint (principal); M25.561 Pain in right knee
CPT/HCPCS: 97010; 97014; 97016; 97110; 97140; 97163; 97164; G0283

== ENCOUNTER 2019-06-26 17:30 | Outpatient (RCR) | payer OTHER, SELFPAY ==
--- NOTE | 2019-06-08 14:31 | HMH.PTOPWND ---
Rehab Outpt Wound Evaluation Rehab OP Wound Evaluation Start: 06/08/19 14:17 Freq: Status: Active Protocol: Document 06/08/19 14:17 ABA (Rec: 06/08/19 14:30 PHORNE [id number]) Electronically Signed By Bassam Franks, PT 06/08/19 14:17 Subjective/History History History Pt is a 54 yowf who presents ~ 3 mos S/P right TKA and ~ 1 mo S/P right knee VALERIE. She reports continue edema throughout the right LE, worse with prolonged dependent position. She also c/o constant aching pain on the medial side of the right knee. She reports no c/o with ambulation or stength and no numbness or tingling. SHe has PMH of asthma, , thyroidectomy, JOHN, bladder sling, hernia repair, right knee micro-fracture surgery x 2. Subjective Subjective Pt reports aching pain and tenderness to palpation on the medial, inferior right knee. Lymphedema Eval Classification of Lymphedema Secondary Lymphedema Yes Stemmer's sign Stemmer's Sign no Stage of Lymphedema Lymphedema stages Stage I (Pitting edema, reduces w/ elevation, no fibrosis) Skin Changes Redness Yes Pain Scale Pain Scale (0-10) 5 Affected Extremities Areas Affected by Lymphedema/Edema Right Lower Extremity Manual Lymphatic Drainage Treatment Area MLD Treatment Area Right Lower Extremity Wound Problems/Impairments Impairments Problems/Impairmments Palpation Tenderness,Impaired Endurance,Impaired Walking, Impaired Recreational Activities,Increased Edema, Lymphedema Present,Subjective C/O Pain,Impaired Self Care/ Self Management Prognosis Rehab Potential Good Clinical Impression Consistent with Diagnosis Yes Short Term Goals Number of Weeks 4 Decreased Palpation Tenderness Yes: to min Increase Ability to Walk Yes Decrease Subjective C/O Pain Yes: 4/10 Patient to Understand Lymphedema Yes Treatment and Exercises Decrease Girth Measurments by (cm) Yes: by 5 cm Long-Term Goals Number of Weeks
== END 2019-06-26 17:35 | disposition home or self-care (01) ==
LOC: PT 17:30
PROVIDERS: PCP Physician Assistant; Visit Provider Orthopaedic Surgery
DX: Z96.651 Presence of right artificial knee joint (principal); M25.561 Pain in right knee
CPT/HCPCS: 97140; 97162; 97760

== ENCOUNTER → 2019-07-16 12:32 | Outpatient (CLI) | payer OTHER, SELFPAY ==
--- NOTE | 2019-07-16 12:37 | XR_ITS ---
PROCEDURE: XR KNEE RT 4V CLINICAL INDICATION: right knee follow up Right knee pain when bending COMPARISON: [id number] KNEE-4 OR 5 VIEWS-RT from 12/30/2014 [id number] KNEE-4 OR 5 VIEWS-RT from 11/25/2015 [id number] XR knee RT 4V from 12/20/2018 from 03/21/2019 FINDINGS: Status post total knee replacement with good alignment. No obvious fracture or dislocation. In the intramedullary region of the distal femur 2 bony fragments are once again noted unchanged. Other findings:None. IMPRESSION: Status post total knee replacement with good alignment with no acute finding. Dictated by: Delvis Evans MD 07/16/2019 13:02 Electronically signed by Delvis Evans MD in [place] 07/16/2019 13:02
[2019-07-16 13:49] LABS: Basophils % 0.5 % (0.1-2.0); Eosinophils # 0.2 K/mm3 (0.0-0.4); Eosinophils % 2.5 % (0.1-12.0); Hematocrit 41.4 % (37.0-47.0); Hemoglobin 12.5 g/dL (12.2-16.2); Lymphocytes # 2.7 K/mm3 (0.7-4.5); Lymphocytes % 37.5 % (10-50); Mean Corpuscular HGB Conc 30.3 g/dL (31.8-35.4); Mean Corpuscular Hemoglobin 27.1 pg (27.0-31.2); Mean Corpuscular Volume 89.6 fl (81-99); Mean Platelet Volume 9.5 fl (7.4-10.4); Monocytes # 0.4 K/mm3 (0.1-1.0); Monocytes % 5.3 % (1.7-9.3); Neutrophils % 54.2 % (37.0-80.0); Platelet Count 307 K/mm3 (142-424); Red Blood Count 4.63 M/mm3 (4.20-5.40); Red Cell Distribution Width 15.6 % (11.5-17.5); White Blood Count 7.3 K/mm3 (4.8-10.8)
[2019-07-16 17:10] LABS: C-Reactive Protein 0.3 mg/dL (0.0-0.9)
[2019-07-16 18:33] LABS: Erythrocyte Sedimentation Rate 16 mm/hr (0-30)
== END ==
PROVIDERS: PCP Physician Assistant; Visit Provider Orthopaedic Surgery
DX: T84.82XA Fibrosis due to internal orthopedic prosthetic devices, implants and grafts, initial encounter (principal); Z96.651 Presence of right artificial knee joint
CPT/HCPCS: 36415; 73564; 85025; 85651; 86140

== ENCOUNTER → 2019-07-16 13:34 | Outpatient (CLI) | payer OTHER, SELFPAY | PROVIDERS: Visit Provider Orthopaedic Surgery | DX: Z01.818 Encounter for other preprocedural examination (principal) | CPT/HCPCS: 36415; 85025; 85651; 86140 ==

== ENCOUNTER → 2019-07-19 10:17 | Outpatient (CLI) | payer OTHER, SELFPAY ==
--- NOTE | 2019-07-19 10:20 | XR_ITS ---
PROCEDURE: XR HIP RT 2-3V W/PELVIS CLINICAL INDICATION: Right hip pain COMPARISON: HIP2L HIP-2 VIEWS-LT from 08/15/2015 FINDINGS: No fracture or dislocation. No significant degenerative change. No lytic changes apparent. There is a small area of sclerosis overlying the proximal aspect of the femur at 6 mm and may be due to small bone island. Incidental note is made of degenerative changes at the L5-S1 junction with facet arthritic change. IMPRESSION: 1. Negative right hip. 2. Degenerative disc disease with facet arthritic change at the lumbosacral junction Dictated by: Delvis Evans MD 07/19/2019 11:22 Electronically signed by Delvis Evans MD in [place] 07/19/2019 11:22
== END ==
PROVIDERS: PCP Emergency Medicine; Visit Provider Orthopaedic Surgery
DX: M25.551 Pain in right hip (principal)
CPT/HCPCS: 73502

== ENCOUNTER → 2019-09-14 08:13 | Outpatient (CLI) | payer BC, SELFPAY ==
--- NOTE | 2019-09-14 08:25 | XR_ITS ---
PROCEDURE: XR KNEE RT 4V CLINICAL INDICATION: Rt TKA Follow-up total knee arthroplasty, fall with injury and pain COMPARISON: [id number] KNEE-4 OR 5 VIEWS-RT from 12/30/2014 [id number] KNEE-4 OR 5 VIEWS-RT from 11/25/2015 [id number] XR knee RT 4V from 12/20/2018 XR KNEE RT 4V from 07/16/2019 FINDINGS: Good alignment status post total knee arthroplasty. No acute fracture or dislocation. Sclerosis once again noted at the distal shaft of the femur intramedullary nonspecific. There does appear to be a small suprapatellar effusion. Other findings:None. IMPRESSION: Good alignment status post total knee arthroplasty with no acute fracture or dislocation Dictated by: Delvis Evans MD 09/14/2019 14:11 Electronically signed by Delvis Evans MD in [place] 09/14/2019 14:11
== END ==
PROVIDERS: PCP Emergency Medicine; Visit Provider Orthopaedic Surgery
DX: T84.82XA Fibrosis due to internal orthopedic prosthetic devices, implants and grafts, initial encounter (principal); M25.562 Pain in left knee; Z96.659 Presence of unspecified artificial knee joint
CPT/HCPCS: 73564

== ENCOUNTER → 2019-11-26 12:25 | Outpatient (CLI) | payer OTHER, SELFPAY ==
--- NOTE | 2019-11-26 12:30 | XR_ITS ---
PROCEDURE: XR KNEE RT 4V CLINICAL INDICATION: knee pain COMPARISON: [id number] KNEE-4 OR 5 VIEWS-RT from 11/25/2015 [id number] XR knee RT 4V from 12/20/2018 XR KNEE RT 4V from 07/16/2019 XR KNEE RT 4V from 09/14/2019 FINDINGS: Status post total knee replacement. Good alignment. No fracture or dislocation. Intramedullary calcification once again involving distal femur unchanged. Other findings:None. IMPRESSION: No change with no acute finding status post total knee replacement with good alignment Dictated by: Delvis Evans MD 11/26/2019 13:04 Electronically signed by Delvis Evans MD in [place] 11/26/2019 13:04
== END ==
PROVIDERS: PCP Physician Assistant; Visit Provider Orthopaedic Surgery
DX: Z96.659 Presence of unspecified artificial knee joint (principal); M25.561 Pain in right knee
CPT/HCPCS: 73564

== ENCOUNTER 2019-11-26 15:40 | Outpatient (RCR) | payer OTHER, SELFPAY | END 2019-11-26 16:30 | disposition home or self-care (01) | LOC: PT 15:40 | PROVIDERS: Visit Provider Orthopaedic Surgery | DX: M25.561 Pain in right knee (principal); S83.411A Sprain of medial collateral ligament of right knee, initial encounter | CPT/HCPCS: 97760 ==

== ENCOUNTER → 2019-11-27 14:44 | Outpatient (CLI) | payer OTHER, SELFPAY ==
--- NOTE | 2019-11-27 14:44 | MR_ITS ---
PROCEDURE: MR LUMBAR SPINE WO CON CLINICAL INDICATION: Lumbar stenosis Lumbar stenosis. 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 3-D MIP and myelographic images are also rendered and reviewed FINDINGS: There is normal alignment. The spinal cord ends at the L1 level. T11-T12: Degenerative disc disease with endplate and facet and ligamentum hypertrophy with minimal bulging disc. T12-L1: Degenerate disc disease with endplate and facet hypertrophic change with minimal bulging disc L1-L2: Unremarkable. L2-L3: Unremarkable. L3-L4: Unremarkable. L4-5: Bulging disc which is eccentric toward the left along with facet and ligamentum hypertrophy with moderate left lateral recess and moderate to severe left-sided foraminal narrowing. There is increased T2 signal at the facet joints at L4-L5 on both sides the. It is somewhat difficult to determine if the increased signals is within the joint space or within the bony facet itself or both. L5-S1: There is mild concentric bulging disc along with facet ligamentum hypertrophy. IMPRESSION: 1. Degenerative disc disease T11-T12 and T12-L1 with minimal bulging disc. 2. Bulging disc at L4-5 which is eccentric toward the left along with facet and ligamentum hypertrophy with moderate left lateral recess and moderate to severe left-sided foraminal narrowing. There is increased T2 signal at the facet joints at L4-L5 on both sides. It is somewhat difficult to determine if the increased signals is within the joint space or within the bony facet itself or both. Underlying inflammatory arthritic changes of the facets at L4-5 suspected 3. Mild bulging disc at L5-S1 4. No extruded herniated disc evident Dictated by: Delvis Evans MD 11/28/2019 10:34 Electronically signed by Delvis Evans MD in [place] 11/28/2019 10:34
== END ==
PROVIDERS: PCP Physician Assistant; Visit Provider Physician Assistant
DX: M48.062 Spinal stenosis, lumbar region with neurogenic claudication (principal)
CPT/HCPCS: 72148; 76376

== ENCOUNTER → 2020-01-01 09:32 | Outpatient (POV) | payer OTHER, SELFPAY ==
[2020-01-01 09:55] VITALS: BP 167/98; PULSE 98; RESP 18; TEMP 36.4; O2SAT 98; BMI 32.8
--- NOTE | 2020-01-01 10:22 | HMH.PMCON ---
Assessment and Plan (1) Degenerative joint disease (DJD) of lumbar spine Current visit: Yes Status: Chronic Category: Medical Code(s): M47.816 - Spondylosis without myelopathy or radiculopathy, lumbar region (2) Lumbar radiculopathy Current visit: Yes Status: Chronic Category: Medical Code(s): M54.16 - Radiculopathy, lumbar region (3) Facet arthropathy Current visit: Yes Status: Chronic Category: Medical Code(s): M47.819 - Spondylosis without myelopathy or radiculopathy, site unspecified - Assessment and plan all Dx Assessment and Plan for all problems:: Patient does have recent imaging of her lumbar spine. Given her symptoms and imaging the patient would likely benefit from a medial branch block/facet joint injection at L3-L4 L4-L5 bilaterally. She is not on any anticoagulation therapy. I have advised the patient that we are unable to perform any type of injective therapy at this time due to the risks associated with COVID 19. Patient does verbalize understanding. She is currently on gabapentin and muscle relaxers along with Percocet per her primary care provider. We will see the patient back in the clinic after her injection to reassess her symptoms. She is continuing with a home stretching program. She has undergone physical therapy. She also uses ice and heat therapies. Patient has been instructed to contact clinic if she has any concerns before next appointment. Dr. Baca has reviewed this note and agrees with this plan of care. This note was dictated using voice recognition software and make contain errors or omissions. HPI - Data of Consult Consult date: 01/01/20 Requesting Physician: Louise Lucero APRN Primary Care Provider: SUE Colvin - Consult Narrative Reason for consult: Low back pain with bilateral numbness and tingling bilateral legs and feet History of present illness: Ms. Lerner is a 54 year old female who presents today for consultation for low back pain with bilateral leg pain with numbness and tingling. She says that this pain is been ongoing since year 2000 and has progressively gotten worse. She does describes the pain is dull in nature. Pain is worse with leaning forward, lifting objects, and with walking. Pain is relieved with sitting upright. It is a dull ache in nature. She is tried ice and heat therapies, along with physical therapy. Patient currently wears a brace to her right leg for ambulation. She does continue with home stretching program. She continues to use anti-inflammatories. Patient also takes gabapentin 800 mg 1 tablet p.o. 3 times daily and Percocet 5 mg 1 tablet p.o. daily. She says she takes chronic muscle relaxers for relief. These medications are prescribed to her per her primary care provider. The patient does rate her pain a 7 out of 10 today. CC: Louise Lucero APRN [facility] History I have reviewed the patient's past medical history: Yes Medical History: Reports:: Asthma, Hypertension, Lung Disease Denies:: Cancer, Diabetes Mellitus Type 1, Diabetes Mellitus Type 2, Internal Pacemaker, MRSA, Seizures *Have you ever received a pneumonia vaccine?: Yes *Have you received a flu vaccine this season?: Yes Other Medical History: Reports: Other. Denies: Blood Transfusion Reaction, Hypothyroidism Laterality Cases: Right: Arthroscopy Knee Other Surgeries: Yes: Cholecystectomy, Colonoscopy, , Hernia Repair, Thyroidectomy, Other. No: Pacemaker Amputation: No Fractures: No - *Social History Smoking Status: Former smoker Tobacco Type: cigarettes Alcohol Intake: never Substance Use Type: denies use *Occupational Status:: other Housing: house Household Members: spouse *Travel in the last 8 weeks: None Family Hx:: Unable to obtain Review of Systems - Review of Systems Review of Systems General: No recent weight changes, no fever, no sleep disturbances Respiratory: No cough, no shortness of air, no recurring pulmonary
--- NOTE | 2020-01-02 15:20 | PC.PHONENOTE ---
called in Rx for Tramadol 50mg TID with no refills to [facility]'s pharmacy in [place] per provider order
== END ==
PROVIDERS: PCP Physician Assistant; Visit Provider Clinical Nurse Specialist Family Health
DX: M47.26 Other spondylosis with radiculopathy, lumbar region (principal); M47.819 Spondylosis without myelopathy or radiculopathy, site unspecified
CPT/HCPCS: 99202

== ENCOUNTER 2020-01-18 09:07 | Day surgery (SDC) | payer OTHER, MEDICAID, SELFPAY ==
[2020-01-18 09:19] VITALS: BP 174/98; PULSE 77; RESP 18; TEMP 36.9; O2SAT 98; BMI 36.9
[2020-01-18 09:33] VITALS: BP 178/85; PULSE 98; RESP 18
[2020-01-18 09:34] VITALS: BP 175/89; PULSE 98; RESP 18; O2SAT 99
--- NOTE | 2020-01-18 09:45 | HMH.PMPROC ---
- Procedure Date: 01/18/20 Time: 09:45 Anesthesiologist:: Kings Baca MD Complications:: None Pre-procedure Diagnosis:: Degenerative disc disease of lumbar spine with lumbar spondylosis and facet arthropathy of lumbar spine Post-procedure Diagnosis:: Same Indications for Procedure:: This patient is a pleasant 54-year-old white female who we are treating for low back pain and bilateral leg pain. She is tender over the facet joints of L3-L4 and L4-L5. MRI findings do also show facet arthropathy at these levels. She has increased pain with extension. We will plan on bilateral facet joint injections/medial branch blocks of L3-4 and L4-5 bilaterally today. She has had some increasing pain affecting her activities of daily living and functionality. We will plan on doing these injections today to keep her out of the emergency room and off oral opioids. Procedure Details:: Lumbar medial branch block Informed consent was obtained and the risks and benefits of the procedure was explained to the patient. The back was prepped using ChloraPrep. The skin and subcutaneous tissues were anesthetized using lidocaine. I placed 22-gauge spinal needles into the facet joint/medial branches of L3-L4 and L4-L5 bilaterally. Needle placement was confirmed with dye. After this we injected 3 mL bupivacaine 0.25% and Depo-Medrol 20 mg into each facet joint/medial branch of L3-L4 and L4-L5 bilaterally. We used a total of 80 mg Depo-Medrol for both levels bilaterally. The patient tolerated the procedure well with no complications. Plan and Disposition:: We will follow-up with her in 2 weeks. Will reevaluate her symptoms at that time. If these are successful we will seek approval for radiofrequency ablation of the same facet joints of L3-4 and L4-5 bilaterally.
[2020-01-18 09:57] VITALS: BP 161/92; PULSE 93; RESP 20; O2SAT 98
== END 2020-01-18 09:58 | disposition home or self-care (01) ==
LOC: SC.PAINP 09:08
PROVIDERS: PCP Physician Assistant; Visit Provider Anesthesiology
DX: M51.36 Other intervertebral disc degeneration, lumbar region (principal); M47.816 Spondylosis without myelopathy or radiculopathy, lumbar region; M54.06 Panniculitis affecting regions of neck and back, lumbar region; I10 Essential (primary) hypertension; E03.9 Hypothyroidism, unspecified; J45.909 Unspecified asthma, uncomplicated; Z79.899 Other long term (current) drug therapy
CPT/HCPCS: 64493; 64494; J1030; Q9966

== ENCOUNTER → 2020-02-18 12:37 | Outpatient (POV) | payer OTHER, MEDICAID, SELFPAY ==
[2020-02-18 13:16] VITALS: BP 145/74; PULSE 74; RESP 18; TEMP 36.6; O2SAT 99; BMI 17.2
--- NOTE | 2020-02-19 08:06 | HMH.PAINSOAP ---
[facility] Pain Management SOAP Note Subjective:: Patient is a pleasant 55-year-old white female who we are treating for low back pain. She is tender over her facet joints at L3-L4 L4-L5 she is following up after a medial branch block/lumbar facet joint injection. Patient did extremely well getting 90% relief for 3 weeks after her injection. She like to move forward with an RFA of these levels. We will plan to do this. She is not on any anticoagulation therapy. She is on tramadol which does benefit her. Patient denies side effects or medication. [facility] #[id number] reviewed and appropriate. ROS General: no recent weight change, no fever, no sleep disturbances Respiratory: no cough, no shortness of air, no recurring pulmonary infections Cardiovascular/Peripheral Vascular: No chest pain, No palpitations, no edema, no shortness of breath. Gastrointestinal: no new onset incontinence, normal bowel movements reported Genitourinary: no new onset incontinence Musculoskeletal: Back pain Psychiatric: normal mood/ affect Neurological: [denies new onset weakness in extremities], [denies new onset balance issues] Objective:: Physical Exam General: Alert and oriented x3, no acute distress, pleasant and cooperative, [on room air] Lungs: Resps E/U, Symmetrical chest expansion, Eyes: PERRL Musculoskeletal: Flexion and extension of lumbar spine somewhat guarded secondary to pain, deep tendon reflexes normal, strength in upper and lower extremities [5/5], [abnormal gait noted] Neurological: speech clear, soft sugar supervisor equal, no gross sensory deficits Assessment:: Degenerative disc disease lumbar spine with lumbar spondylosis and facet arthropathy of lumbar spine Plan:: We will plan an L3-L4 L4-L5 bilateral RFA. We will do the right side and then in 2 weeks to the left side. She has been instructed to call the office if she has any issues prior to her next appointment. We will continue her tramadol at this time. Dr. Baca has reviewed this note and agrees with this plan of care. This note was dictated using voice recognition software and may contain errors or omissions [facility] History I have reviewed the patient's past medical history: Yes Medical History: Reports:: Asthma, Depression, Hypertension, Lung Disease, Seizures Denies:: Cancer, Diabetes Mellitus Type 1, Diabetes Mellitus Type 2, Internal Pacemaker, MRSA *Have you ever received a pneumonia vaccine?: Yes *Have you received a flu vaccine this season?: Yes Other Medical History: Reports: Anemia, Arthritis, Other. Denies: Blood Transfusion Reaction, Hypothyroidism Laterality Cases: Right: Arthroscopy Knee Other Surgeries: Yes: Cholecystectomy, Colonoscopy, , Hernia Repair, Thyroidectomy, Other. No: Pacemaker Amputation: No Fractures: No - *Social History Smoking Status: Current every day smoker Tobacco Type: e-cigarettes # Packs/Day (cigarettes): 0 Alcohol Intake: never Substance Use Type: denies use *Occupational Status:: other Housing: house Household Members: spouse *Travel in the last 8 weeks: None - Psychiatric History Pschychiatric History:: Reports:: Depression Family Hx:: No significant family history
== END ==
PROVIDERS: PCP Physician Assistant; Visit Provider Clinical Nurse Specialist Family Health
DX: M51.36 Other intervertebral disc degeneration, lumbar region (principal); M54.06 Panniculitis affecting regions of neck and back, lumbar region; M47.816 Spondylosis without myelopathy or radiculopathy, lumbar region
CPT/HCPCS: 99212

== ENCOUNTER 2020-02-29 10:36 | Day surgery (SDC) | payer BC, MEDICAID, SELFPAY ==
[2020-02-29 11:36] VITALS: BP 148/80; PULSE 102; RESP 18; TEMP 36.7; O2SAT 97; BMI 33.7
[2020-02-29 11:59] VITALS: BP 155/89; PULSE 85; RESP 18
[2020-02-29 12:06] VITALS: BP 138/89; PULSE 88; RESP 18; O2SAT 99
[2020-02-29 12:20] VITALS: BP 118/68; PULSE 82; RESP 20; O2SAT 97
--- NOTE | 2020-02-29 12:41 | HMH.PMPROC ---
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 She did very well after medial branch blocks to the facet joints of L3-L4 and L4-L5. We will do radiofrequency ablation to the same levels today. We will start with the right side today. Procedure Details:: Lumbar RFA informed consent was obtained and the risk and benefits of the procedure was explained to the patient. Patient was placed prone on the procedure table. The patient was prepped and draped in sterile fashion. C-arm fluoroscopy was used to view the lumbar spine. The skin and subcutaneous tissues were anesthetized using lidocaine. I placed 20-gauge RF needles into the facet joints of L3-4 and L4-L5 levels on the right side. We underwent sensory stimulation. There is good sensory stimulation at 0.8 V. We underwent motor stimulation. There is no motor stimulation at 2 V. We then anesthetized these levels with lidocaine and Depo-Medrol. I used a total of 40 mg Depo-Medrol for both levels. I then burned both levels of L3-L4 and L4-L5 facet joint/medial branches on the right side for 4 minutes at 80 ?C Patient tolerated the procedure well with no complication. Plan and Disposition:: We will follow-up with her in 2 weeks. Will reevaluate symptoms at that time.
== END 2020-02-29 12:21 | disposition home or self-care (01) ==
LOC: SC.PAINP 10:39
PROVIDERS: PCP Physician Assistant; Visit Provider Anesthesiology
DX: M51.36 Other intervertebral disc degeneration, lumbar region (principal); M47.816 Spondylosis without myelopathy or radiculopathy, lumbar region; M12.88 Other specific arthropathies, not elsewhere classified, other specified site; J45.909 Unspecified asthma, uncomplicated; F32.9 Major depressive disorder, single episode, unspecified; E03.9 Hypothyroidism, unspecified; D64.9 Anemia, unspecified; Z72.0 Tobacco use; Z87.448 Personal history of other diseases of urinary system
CPT/HCPCS: 64635; 64636; J1040

== ENCOUNTER → 2020-03-07 08:37 | Outpatient (CLI) | payer BC, MEDICAID, SELFPAY ==
--- NOTE | 2020-03-07 08:50 | XR_ITS ---
PROCEDURE: XR KNEE RT 3V, weight-bearing CLINICAL INDICATION: TKA FU COMPARISON: XR KNEE RT 4V from 11/26/2019 FINDINGS: The total knee prosthesis is again noted. The femoral prosthesis is in good alignment and apposition to the tibial plateau prosthesis. There is no evidence of loosening of either prosthesis. The orthopedic plug and metallic ring are seen undersurface of the patella. There is no definite effusion. IMPRESSION: Satisfactory appearance total knee prosthesis, no acute findings seen Dictated by: Dr. Castillo Yo MD 03/07/2020 09:[address] Castillo Yo MD in [place] 03/07/2020 09:17
== END ==
PROVIDERS: PCP Physician Assistant; Visit Provider Orthopaedic Surgery
DX: Z96.659 Presence of unspecified artificial knee joint (principal); M25.561 Pain in right knee
CPT/HCPCS: 73562

== ENCOUNTER 2020-03-14 10:52 | Day surgery (SDC) | payer BC, MEDICAID, SELFPAY ==
[2020-03-14 11:07] VITALS: BP 153/80; PULSE 102; RESP 18; TEMP 36.7; O2SAT 98; BMI 36.9
[2020-03-14 11:35] VITALS: BP 138/89; PULSE 88; RESP 18; O2SAT 98
--- NOTE | 2020-03-14 11:35 | P.PCN_ITS ---
- Procedure Date: 03/14/20 Time: 11:35 Anesthesiologist:: Kings Baca MD Complications:: None Pre-procedure Diagnosis:: Degenerative disc disease of lumbar spine with lumbar spondylosis and facet arthropathy of lumbar spine Post-procedure Diagnosis:: Same Indications for Procedure:: This patient is a pleasant 55-year-old white female who we are treating for low back pain with lumbar spondylosis and facet arthropathy lumbar spine. She is done very well after radiofrequency ablation of the facet joint/medial branches of L3-L4 and L4-L5 on the right side. She presents for RFA to the facet joint/medial branches on the left side today of L3-L4 and L4-L5. Procedure Details:: Lumbar RFA informed consent was obtained and the risk and benefits of the procedure was explained to the patient. Patient was placed prone on the procedure table. The patient was prepped and draped in sterile fashion. C-arm fluoroscopy was used to view the lumbar spine. The skin and subcutaneous tissues were anesthetized using lidocaine. I placed 20-gauge RF needles into the facet joints of L3-L4 and L4-L5 levels on the left side. We underwent sensory stimulation. There is good sensory stimulation at 0.8 V. We underwent motor stimulation. There is no motor stimulation at 2 V. We then anesthetized these levels with lidocaine and Depo-Medrol. I used a total of 40 mg Depo-Medrol for both levels. I then burned both levels of L3-L4 and L4-L5 facet joint/medial branches on the left side,each one for 4 minutes at 80 ?C Patient tolerated the procedure well with n o complication. Plan and Disposition:: Follow-up with her in 2 weeks. Will reevaluate symptoms at that time.
[2020-03-14 11:36] VITALS: BP 140/78; PULSE 68; RESP 18; O2SAT 99
[2020-03-14 11:45] VITALS: BP 131/77; PULSE 88; RESP 18; O2SAT 98
== END 2020-03-14 11:45 | disposition home or self-care (01) ==
LOC: SC.PAINP 10:53
PROVIDERS: PCP Physician Assistant; Visit Provider Anesthesiology
DX: M51.36 Other intervertebral disc degeneration, lumbar region (principal); M12.88 Other specific arthropathies, not elsewhere classified, other specified site; M47.816 Spondylosis without myelopathy or radiculopathy, lumbar region; Z96.651 Presence of right artificial knee joint; J45.909 Unspecified asthma, uncomplicated; I10 Essential (primary) hypertension; Z72.0 Tobacco use; Z79.51 Long term (current) use of inhaled steroids; Z79.899 Other long term (current) drug therapy
CPT/HCPCS: 64635; 64636; J1040

== ENCOUNTER 2020-03-30 13:36 | Emergency (ER) | payer BC, MEDICAID, SELFPAY ==
[2020-03-30 13:37] VITALS: BP 148/81; PULSE 92; RESP 17; TEMP 36.9; O2SAT 99; BMI 35.3
--- NOTE | 2020-03-30 14:01 | HMH.EDUTC ---
[facility] [place] Disposition Clinical Impression: URI with cough and congestion Disposition: Home, Self-Care Condition on Discharge: Good Instructions: Sore Throat, Cough, DI for Cough -- Adult, Mometasone Nasal [place] Additional Instructions: *Monitor Temp, Over the counter Motrin or Tylenol as directed/as needed Tylenol every 4 hours and Motrin every 6 hours (as long as your family doctor has told you that you can take it) for fever or pain. and straight to ER if unable to lower temp less than 101.0 after medication given *Warm salt water gargles may help to soothe the throat *Throat Lozenges *Warm fluids like tea with honey may help to soothe the throat *Sleep elevated *Humidifier/Vaporizer *Nasonex 2 sprays in each nostril daily but be aware that it may take 2-3 days before you notice improvement Follow up with PCP if no improvement or any worsening of symptoms Your throat swab was sent for culture. Those results are typically sent to your primary care. Be sure to follow up in 2-3 days with your family doctor/primary care physician if no improvement so they can review those result and treat if necessary. If you don?t have a primary care doctor, I recommend you get one but in the mean time, you will have to return to a walk in clinic Follow up IMMEDIATELY for new or worsening symptoms or no Noticeable improvement over the next 48-72 hours. 911 for difficulty breathing or swallowing Prescriptions: Mometasone Furoate [Nasonex] 2 sprays NS DAILY #1 spray.pump Transmission Status: Received by [facility] #[id number] Benzonatate [Tessalon Perle 100mg Cap*] 100 mg PO TID PRN #15 cap PRN Reason: Cough Transmission Status: Received by [facility] #[id number] Referrals: Tiffanie Esqueda PA [Primary Care Provider] - As needed Time of Disposition: 14:39 Medical Decision Making - Agusto Inquiry Pt receiving controlled substance: No Agusto was queried for this patient: No Vital Signs: 03/30/20 13:37 Temperature 98.4 F Temperature Source Oral Pulse Rate [Radial] 92 H Respiratory Rate 17 Blood Pressure [Right Arm] 148/81 H Blood Pressure Mean [Right Arm] 103 Blood Pressure Source [Right Arm] Automatic Cuff Blood Pressure Position [Right Arm] Sitting 02 Sat by Pulse Oximetry 99 Oxygen Delivery Method Room Air - Lab Data Lab results reviewed: Yes: I reviewed the patient's lab results. Lab Results 03/30/20 14:00: Strep Scn Rapid Clinic Negative Orders (Tests/Meds): ED MEDICATIONS Discontinued Medications Generic Name Dose Route Start Last Admin Trade Name Alvaro PRN Reason Stop Dose Admin Ceftriaxone Sodium 1 gm 03/30/20 14:21 03/30/20 14:27 Rocephin 1gm Vial IM 03/30/20 14:22 1 gm ONCE ONE Administration Protocol Lidocaine HCl 0 ml 03/30/20 14:21 03/30/20 14:27 Lidocaine 1% 10ml Mdv IM 03/30/20 14:22 2.1 ml ONCE ONE Administration Methylprednisolone Sodium Succinate 125 mg 03/30/20 14:21 03/30/20 14:27 Solu-Medrol 125mg/2ml Vial IM 03/30/20 14:22 125 mg ONCE ONE Administration ORDERS Category Date Time Status Strep Screen Confirmation Stat Micro 03/30/20 14:00 Received [facility] [place] HPI - General Stated complaint: cough Time Seen by Provider: 03/30/20 14:01 Mode of Arrival: Ambulatory Source of Information: Patient Limitations: No Limitations Description of Symptoms (Recalled from Triage Doc. by RN): sore throat, cough, shortness of breath x 1 week HEENT Symptoms (Recalled from RN notes): Yes Resp Symptoms (Recalled from RN notes): Yes Skin Symptoms (Recalled from RN notes): No MS Symptoms (Recalled from RN notes): No Functional Status (Recalled from RN notes): wnl - History of Present Illness Provider Complaint: Patient states that she has been having naggy cough for several weeks, sore throat and sinus pain and pressure for last couple of days that has got worse States that she saw PCP last week and they stopped her lisinopril thinking that was c
[2020-03-30 14:19] LABS: UTC Strep Screen (Rapid) Negative (Negative)
[2020-03-30 14:58] VITALS: BP 148/81; PULSE 92; RESP 17; TEMP 36.9; O2SAT 99
== END 2020-03-30 14:59 | disposition home or self-care (01) ==
PROVIDERS: Emergency Provider Nurse Practitioner; PCP Physician Assistant
DX: J06.9 Acute upper respiratory infection, unspecified (principal); J45.909 Unspecified asthma, uncomplicated; I10 Essential (primary) hypertension; F33.1 Major depressive disorder, recurrent, moderate; Z79.899 Other long term (current) drug therapy; F17.290 Nicotine dependence, other tobacco product, uncomplicated; Z90.49 Acquired absence of other specified parts of digestive tract
CPT/HCPCS: 87880; 96372; 99201; 99202

== ENCOUNTER → 2020-04-02 09:23 | Outpatient (CLI) | payer MEDICAID, SELFPAY ==
--- NOTE | 2020-04-02 09:36 | XR_ITS ---
PROCEDURE: XR CHEST PORTABLE CLINICAL HISTORY: COVID TESTING Cough COMPARISON: CXR CHEST(2 VIEWS-NOT PORTABLE) from 07/05/2015 CXR2V XR chest 2V from 12/13/2017 FINDINGS: The cardiomediastinal silhouette and pulmonary vascularity are within normal limits. The lungs are clear without infiltrates, suspicious nodules, or pleural effusions. No acute bony abnormalities. IMPRESSION: No acute findings. Dictated by: Delvis Evans MD 04/02/2020 10:06 Electronically signed by Delivs Evans MD in [place] 04/02/2020 10:06
[2020-04-03 15:37] LABS: Covid-19 Nasal PCR Sendout Lex NOT DETECTED
== END ==
PROVIDERS: PCP Physician Assistant; Visit Provider Family Medicine
DX: Z03.818 Encounter for observation for suspected exposure to other biological agents ruled out (principal)
CPT/HCPCS: 71045; U0004

== ENCOUNTER → 2020-04-07 09:24 | Outpatient (POV) | payer BC, MEDICAID, SELFPAY ==
[2020-04-07 09:36] VITALS: BP 157/92; PULSE 100; RESP 18; O2SAT 98; BMI 35.3
--- NOTE | 2020-04-07 09:41 | P.CONS_ITS ---
[facility] Pain Management SOAP Note Subjective:: Patient is a pleasant 55-year-old white female who are treating for low back pain with lumbar spondylosis facet arthropathy and degeneration. Patient is following up after bilateral RFA. She did extremely well rating her pain a 2 out of 10 today. Her focal pain has dissipated however she does have radiation of numbness and tingling and pain down her right leg to her toes. Patient and I discussed an epidural injection she like to move forward with this. She is not on any anticoagulation therapy. ROS General: no recent weight change, no fever, no sleep disturbances Respiratory: no cough, no shortness of air, no recurring pulmonary infections Cardiovascular/Peripheral Vascular: No chest pain, No palpitations, no edema, no shortness of breath. Gastrointestinal: no new onset incontinence, normal bowel movements reported Genitourinary: no new onset incontinence Musculoskeletal: Back pain, leg pain Psychiatric: normal mood/ affect Neurological: [denies new onset weakness in extremities], [denies new onset balance issues] Objective:: Physical Exam General: Alert and oriented x3, no acute distress, pleasant and cooperative, [on room air] Lungs: Resps E/U, Symmetrical chest expansion, Eyes: PERRL Musculoskeletal: Flexion and extension of lumbar spine somewhat guarded secondary to pain, deep tendon reflexes normal, strength in upper and lower extremities [5/5], antalgic gait noted Neurological: speech clear, 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 Given the symptomology I believe that this would be beneficial for her I will follow-up with her after this reassess her symptoms at that time she has been instructed to call the office if she has any issues prior to her next appointment. Dr. Baca has reviewed this note and agrees with this plan of care. This note was dictated using voice recognition software and may contain errors or omissions [facility] History I have reviewed the patient's past medical history: Yes Medical History: Reports:: Asthma, Depression, Hypertension, Lung Disease Denies:: Cancer, Diabetes Mellitus Type 1, Diabetes Mellitus Type 2, Internal Pacemaker, MRSA, Seizures *Have you ever received a pneumonia vaccine?: Yes *Have you received a flu vaccine this season?: Yes Other Medical History: Reports: Anemia, Arthritis, Other. Denies: Blood Transfusion Reaction, Hypothyroidism Laterality Cases: Right: Arthroscopy Knee Other Surgeries: Yes: Cholecystectomy, Colonoscopy, , Hernia Repair, Thyroidectomy, Other. No: Pacemaker Amputation: No Fractures: No - *Social History Smoking Status: Current every day smoker Tobacco Type: e-cigarettes # Packs/Day (cigarettes): 1 Alcohol Intake: never Substance Use Type: denies use *Occupational Status:: other Housing: house Household Members: spouse *Travel in the last 8 weeks: None - Psychiatric History Pschychiatric History:: Reports:: Depression Family Hx:: No significant family history
== END ==
PROVIDERS: PCP Physician Assistant; Visit Provider Clinical Nurse Specialist Family Health
DX: M51.16 Intervertebral disc disorders with radiculopathy, lumbar region (principal); M47.816 Spondylosis without myelopathy or radiculopathy, lumbar region; M12.88 Other specific arthropathies, not elsewhere classified, other specified site
CPT/HCPCS: 99212

== ENCOUNTER → 2020-04-18 10:48 | Outpatient (CLI) | payer MEDICAID, SELFPAY | PROVIDERS: Visit Provider Specialist | DX: M54.5 Low back pain (principal) ==

== ENCOUNTER 2020-04-18 13:39 | Day surgery (SDC) | payer MEDICAID, SELFPAY ==
[2020-04-18 14:11] VITALS: BP 195/105; PULSE 99; RESP 20; TEMP 36.6; O2SAT 100; BMI 35.6
[2020-04-18 14:34] VITALS: BP 122/88; PULSE 79; RESP 18; O2SAT 98
--- NOTE | 2020-04-18 14:36 | P.PCN_ITS ---
- Procedure Date: 04/18/20 Time: 14:36 Anesthesiologist:: Kings Baca MD Complications:: None Pre-procedure Diagnosis:: Degenerative disc disease of lumbar spine with lumbar radiculopathy symptoms Post-procedure Diagnosis:: Same Indications for Procedure:: This patient is a pleasant 55-year-old white female who we are treating for low back pain with lumbar radiculopathy symptoms. She is done very well with previous RFA of the facet joints without lumbar spine. Now she primarily has radicular symptoms. Will do lumbar epidural steroid injection today to help her with her pain symptoms. Procedure Details:: Lumbar epidural steroid injection under fluoroscopy Informed consent was obtained and the risk and benefits of the procedure was explained to the patient. The patient was taken to the procedure room. The patient was placed prone on the procedure table. The patient was prepped and draped in sterile fashion. C-arm fluoroscopy was used to view the lumbar spine. Skin and subcutaneous tissues were anesthetized using lidocaine. I placed an 18-gauge epidural needle and advanced into the L4-L5 interspace using fluoroscopic guidance and [id number] to air. After confirmation of needle placement in the epidural space with dye I injected 2 mL of lidocaine 1.5% with Depo-Medrol 80 mg. Patient tolerated the procedure well with no compl ications. Plan and Disposition:: We will follow-up with her in 2 weeks. Will reevaluate symptoms at that time.
[2020-04-18 14:38] VITALS: BP 133/88; PULSE 89; RESP 18; O2SAT 99
[2020-04-18 14:56] VITALS: BP 152/92; PULSE 85; RESP 18; O2SAT 100
== END 2020-04-18 14:57 | disposition home or self-care (01) ==
LOC: SC.PAINP 13:40
PROVIDERS: PCP Physician Assistant; Visit Provider Anesthesiology
DX: M51.16 Intervertebral disc disorders with radiculopathy, lumbar region (principal); I10 Essential (primary) hypertension; J45.909 Unspecified asthma, uncomplicated; F32.9 Major depressive disorder, single episode, unspecified; M19.90 Unspecified osteoarthritis, unspecified site; E06.9 Thyroiditis, unspecified; I20.9 Angina pectoris, unspecified; Z87.448 Personal history of other diseases of urinary system; Z90.710 Acquired absence of both cervix and uterus; Z90.49 Acquired absence of other specified parts of digestive tract; Z79.82 Long term (current) use of aspirin; Z79.899 Other long term (current) drug therapy
CPT/HCPCS: 62323; J1040; Q9966

== ENCOUNTER 2020-04-21 10:59 | Emergency (ER) | payer MEDICAID, SELFPAY ==
--- NOTE | 2020-04-21 10:56 | ECG_ITS ---
APPROVED REPORT Exam: Resting ECG HR:98 bpm ECG Measurements Heart Rate 98 AXES KS 122 P 29 QRSd 78 QRS 10 QT 340 T 41 QTc 434 <Conclusion> Normal sinus rhythm Minimal voltage criteria for LVH, may be normal variant Borderline ECG Electronically signed by : Rob Martínez, 04/22/2020 11:37:34
[2020-04-21 10:59] VITALS: BP 162/94; PULSE 103; RESP 16; TEMP 36.6; O2SAT 98; BMI 35.6
[2020-04-21 11:00] VITALS: BMI 35.6
--- NOTE | 2020-04-21 11:00 | XR_ITS ---
PROCEDURE: XR CHEST PORTABLE CLINICAL HISTORY: chest pain COMPARISON: CXR CHEST(2 VIEWS-NOT PORTABLE) from 07/05/2015 CXR2V XR chest 2V from 12/13/2017 XR CHEST PORTABLE from 04/02/2020 FINDINGS: The cardiomediastinal silhouette and pulmonary vascularity are within normal limits. The lungs are clear without infiltrates, suspicious nodules, or pleural effusions. No acute bony abnormalities. IMPRESSION: No acute findings. Dictated by: Delvis Evans MD 04/21/2020 11:16 Electronically signed by Delvis Evans MD in [place] 04/21/2020 11:16
[2020-04-21 11:26] LABS: Basophils % 0.4 % (0.1-2.0); Eosinophils # 0.2 K/mm3 (0.0-0.4); Eosinophils % 1.8 % (0.1-12.0); Hematocrit 40.7 % (37.0-47.0); Hemoglobin 13.9 g/dL (12.2-16.2); Lymphocytes % 29.8 % (10-50); Mean Corpuscular HGB Conc 34.1 g/dL (31.8-35.4); Mean Corpuscular Hemoglobin 31.5 pg (27.0-31.2); Mean Corpuscular Volume 92.3 fl (81-99); Monocytes # 0.5 K/mm3 (0.1-1.0); Monocytes % 4.6 % (1.7-9.3); Neutrophils # 6.4 K/mm3 (1.8-7.8); Neutrophils % 63.4 % (37.0-80.0); Platelet Count 278 K/mm3 (142-424); Red Blood Count 4.41 M/mm3 (4.20-5.40); Red Cell Distribution Width 14.4 % (11.5-17.5); White Blood Count 10.2 K/mm3 (4.8-10.8)
[2020-04-21 11:36] LABS: Chloride 102 mmol/L (98-107); Sodium 140 mmol/L (136-145)
[2020-04-21 11:37] LABS: Potassium 4.1 mmoL/L (3.5-5.1)
[2020-04-21 11:40] LABS: Anion Gap 13.1 mEq/L (5-15); Blood Urea Nitrogen 16 mg/dl (7-17); Calcium 9.6 mg/dl (8.4-10.2); Carbon Dioxide 29 mmol/L (22.0-30.0); Creatinine Clearance Estimated 127 mL/min (50-200); Estimated Glomerular Filt Rate 75 ml/min (>60); GFR (African American) 90 ML/MIN (>60); Glucose 91 mg/dl (74-100)
[2020-04-21 11:54] LABS: Troponin I < 0.01 ng/ml (0.00-0.034)
[2020-04-21 11:58] LABS: Free T4 (Free Thyroxine) 1.44 ng/dl (0.78-2.19)
--- NOTE | 2020-04-21 12:00 | PC.NURSE ---
called dr wong's office to make an appt for pt
[2020-04-21 12:02] VITALS: BP 158/91; PULSE 91; RESP 20; O2SAT 98
--- NOTE | 2020-04-21 12:02 | HMH.EDCP ---
ED Disposition Clinical Impression: Atypical chest pain Disposition: Home, Self-Care Condition on Discharge: Good Additional Instructions: Please follow-up with Dr. Marquis's office for an outpatient stress test and further evaluation for cardiac disease. Referrals: Tiffanie Esqueda PA [Primary Care Provider] - - Critical Care Critical Care Time: No Attestation: On 04/21/20, the high probability of a clinically significant, sudden or life threatening deterioration of the following system(s) required my full and direct attention, intervention and personal management. The time I documented below is in addition to time spent performing reported procedures but includes the following listed in this critical care notation. Medical Decision Making - Medical Records Medical records reviewed: Yes: I reviewed the patient's medical records. - Agusto Inquiry Pt receiving controlled substance: No Vital Signs: 04/21/20 10:59 Temperature 98 F Temperature Source Oral Pulse Rate [Left Radial] 103 H Respiratory Rate 16 Blood Pressure [Right Arm] 162/94 H Blood Pressure Mean [Right Arm] 116 Blood Pressure Position [Right Arm] Sitting 02 Sat by Pulse Oximetry 98 Oxygen Delivery Method Room Air - Lab Data Lab results reviewed: Yes: I reviewed the patient's lab results. Lab Results 04/21/20 11:08: WBC 10.2, RBC 4.41, Hgb 13.9, Hct 40.7, MCV 92.3, MCH 31.5 H, MCHC 34.1, RDW 14.4, Plt Count 278, MPV 9.0, Neut % (Auto) 63.4, Lymph % (Auto) 29.8, Elbert % (Auto) 4.6, Eos % (Auto) 1.8, Baso % (Auto) 0.4, Neut # (Auto) 6.4, Lymph # (Auto) 3.0, Elbert # (Auto) 0.5, Eos # (Auto) 0.2, Baso # (Auto) 0.0 04/21/20 11:08: Sodium 140, Potassium 4.1, Chloride 102, Carbon Dioxide 29, Anion Gap 13.1, BUN 16, Creatinine 0.80, Estimated Creat Clear 127, Estimated GFR 75, Est GFR ( Amer) 90, Glucose 91, Calcium 9.6, Troponin I < 0.01 04/21/20 11:08: Free T4 1.44 Result diagrams: 04/21/20 11:08 04/21/20 11:08 Orders (Tests/Meds): ORDERS Category Date Time Status Basic Metabolic Panel Stat Lab 04/21/20 11:08 Results TSH [Thyroid Stimulating Hormone] Stat Lab 04/21/20 11:08 Results Troponin I Q3H Lab 04/21/20 14:15 Ordered Troponin I Q3H Lab 04/21/20 17:15 Ordered Troponin I Stat Lab 04/21/20 11:08 Results - Radiology Data #1 Image(s): Chest Preliminary Findings: Normal/NAD - LELO Score for Non-Stemi Age of Patient: 50-59 years old Heart Rate: 70-89 bpm Systolic Blood Pressure: 120-139 mmhg Serum Creatinine: 0.80-1.19 mg/dl CHF Killip Class: I-No CHF Other Risk Factors: None Non-Stemi Risk Score: 91 Risk Stratification: 1-108 = Low Risk Medical Decision Narrative: Called Dr. Marquis's office to get patient appointment for an outpatient stress test and evaluation. Chest Pain HPI - General Chief Complaint: Chest Pain Stated Complaint: chest pain Time Seen by Provider: 04/21/20 12:02 Mode of Arrival: Ambulatory Source of Information: Patient Limitations: No Limitations Description of Symptoms (Recalled from ER Triage Doc. by RN): to ed per pvt car with c/o intermittent sharp lt side chest pain worse with instarting today c/o sob worse with exertion and movement. pt denies nausea, vomiting, radiation. - History of Present Illness HPI narrative: 55-year-old female presents the emergency department complaining of chest pain. She states that she has been having chest pain for about 3 months and is just been getting worse and she also complains that is been happening intermittently. Patient denies any underlying cord coronary artery disease or cardiovascular disease. She does take antihypertensive for blood pressure issues but her blood pressure is presently controlled. Patient denies having diabetes but does have COPD and does take a cholesterol pill as well. Presently she rates her pain 4 out of 10 classifies as a sharp sensation in the left side of chest with no radiation. Patient denies
[2020-04-21 12:12] LABS: Thyroid Stimulating Hormone 1.12 uIU/mL (0.465-4.68)
[2020-04-21 12:13] VITALS: BP 151/91; PULSE 102; RESP 16; TEMP 36.6; O2SAT 98
== END 2020-04-21 12:16 | disposition home or self-care (01) ==
PROVIDERS: Emergency Provider Family Medicine; PCP Physician Assistant
DX: R07.89 Other chest pain (principal); J44.9 Chronic obstructive pulmonary disease, unspecified; E78.5 Hyperlipidemia, unspecified; F33.1 Major depressive disorder, recurrent, moderate; I10 Essential (primary) hypertension; G43.709 Chronic migraine without aura, not intractable, without status migrainosus; F17.290 Nicotine dependence, other tobacco product, uncomplicated; Z79.899 Other long term (current) drug therapy
CPT/HCPCS: 71045; 80048; 84439; 84443; 84484; 85025; 93005; 99283

== ENCOUNTER → 2020-04-24 13:23 | Outpatient (CLI) | payer MEDICAID, SELFPAY ==
[2020-04-24 13:37] LABS: Basophils % 0.5 % (0.1-2.0); Eosinophils # 0.2 K/mm3 (0.0-0.4); Eosinophils % 2.6 % (0.1-12.0); Hematocrit 44.1 % (37.0-47.0); Hemoglobin 14.5 g/dL (12.2-16.2); Mean Corpuscular HGB Conc 32.9 g/dL (31.8-35.4); Mean Corpuscular Hemoglobin 31.5 pg (27.0-31.2); Mean Corpuscular Volume 95.7 fl (81-99); Mean Platelet Volume 9.1 fl (7.4-10.4); Monocytes # 0.3 K/mm3 (0.1-1.0); Monocytes % 3.3 % (1.7-9.3); Neutrophils # 5.1 K/mm3 (1.8-7.8); Neutrophils % 67.6 % (37.0-80.0); Platelet Count 347 K/mm3 (142-424); Red Blood Count 4.61 M/mm3 (4.20-5.40); Red Cell Distribution Width 14.3 % (11.5-17.5); White Blood Count 7.6 K/mm3 (4.8-10.8)
[2020-04-24 14:46] LABS: Alanine Aminotransferase 28 U/L (12-78); Albumin Level 4.5 g/dl (3.5-5.0); Albumin/Globulin Ratio 1.4 (1.1-1.8); Alkaline Phosphatase 140 U/L (38-126); Anion Gap 17.5 mEq/L (5-15); Aspartate Amino Transferase 30 U/L (14-36); Bilirubin,Total 0.5 mg/dl (0.2-1.3); Blood Urea Nitrogen 21 mg/dl (7-17); Calcium 9.4 mg/dl (8.4-10.2); Carbon Dioxide 26 mmol/L (22.0-30.0); Chloride 102 mmol/L (98-107); Estimated Glomerular Filt Rate 75 ml/min (>60); GFR (African American) 90 ML/MIN (>60); Globulin 3.3 g/dL (1.3-3.2); Glucose 103 mg/dl (74-100); HDL Cholesterol 56 mg/dl (40-60); Potassium 4.5 mmoL/L (3.5-5.1); Sodium 141 mmol/L (136-145); Total Protein,Serum 7.8 g/dl (6.3-8.2)
[2020-04-24 14:48] LABS: Triglycerides 494 mg/dl (30-150)
[2020-04-24 15:02] LABS: 25-OH Vitamin D, Total 27.9 ng/mL (30-100)
[2020-04-24 15:04] LABS: T4 (Thyroxine) 7.6 ug/dl (5.53-11.0)
[2020-04-24 15:17] LABS: Thyroid Stimulating Hormone 0.73 uIU/mL (0.465-4.68)
[2020-04-24 15:20] LABS: Chol/HDL Ratio 5.7 (1-3.5); Cholesterol 317 mg/dl (140-200)
[2020-04-24 15:28] LABS: Direct LDL Cholesterol 158.84 mg/dL (100-129)
== END ==
PROVIDERS: Visit Provider Physician Assistant
DX: Z00.00 Encounter for general adult medical examination without abnormal findings (principal); E55.9 Vitamin D deficiency, unspecified
CPT/HCPCS: 80053; 80061; 82306; 84436; 84443; 85025

== ENCOUNTER 2020-05-01 11:26 | Observation (INO) | payer MEDICAID, SELFPAY ==
[2020-05-01] VITALS (10 sets, daily range): BP systolic 119–141; BP diastolic 53–76; PULSE 73–100; RESP 16–18; TEMP 36.4–36.9; O2SAT 97–99; BMI 35.2
--- NOTE | 2020-05-01 06:10 | CA_ITS ---
APPROVED REPORT EXAM: Comprehensive 2D, Doppler, and color-flow Echocardiogram Engineering Associate: Zulema Ramirez RDCS Ht: 5 ft 6 in Wt: 229lbs BSA: 2.12 BP: 130/70 mmHg Indications: CP,SOA 2D Dimensions LVOT 1.81 cm (M/F) 1.5-2.5 M-Mode Dimensions RVDd 2.33 cm (0.9-2.6) LVDd 5.58 cm (3.5-5.7) LVDs 4.19 cm (3.5-5.7) IVSd 0.81 cm (0.6-1.1) PWd 0.77 cm (0.6-1.1) EF (Teich) 48.80% FS 24.90% EDV (Teich) 152.40 mL ESV (Teich) 78.10 mL LV Diastology E/A Ratio 0.80 Mitral Valve MV A Velocity 66.00 (40-130 cm/s) Left Ventricle Left atrium is mildly enlarged, left ventricle is normal size, mild concentric left ventricular hypertrophy, visually estimated ejection fraction 50%, there appears to be mild hypokinesis involving the distal septum and apical wall. Endocardial surfaces are poorly visualized, grade 1 diastolic dysfunction seen without tissue Doppler evidence of raise left atrial pressure. Right Ventricle Right atrium and right ventricular normal size and contractility. Aortic Valve Aortic valve is minimally thickened and fibrosed, leaflet continue to display good mobility, there is no aortic stenosis or aortic insufficiency. Mitral Valve Mitral valve is grossly normal, there is mild mitral regurgitation. Tricuspid Valve Tricuspid valve is grossly normal, there is mild tricuspid regurgitation, tricuspid regurgitation jet velocity is inadequate for calculation of the right ventricular systolic pressure. Pulmonic Valve Pulmonic valve is poorly visualized. Great Vessels Aortic root is normal size. Pericardium No significant pericardial effusion noted. Conclusion 1. Mildly enlarged left atrium, normal left ventricular size, mild concentric left ventricular hypertrophy, visually estimated ejection fraction 50% with segmental wall motion abnormality described above, grade 1 diastolic dysfunction seen without tissue Doppler evidence of raise left atrial pressure, endocardial surfaces are poorly visualized. 2. Mild mitral and tricuspid regurgitation. 3. No significant pericardial effusion noted. Electronically signed by : Cortez Otero, 05/01/2020 11:36:55
--- NOTE | 2020-05-01 06:14 | NM_ITS ---
APPROVED REPORT Exam: Nuclear Stress Test Indication: chest pain..short of breath..fatigue Patient Location: Outpatient Stress Tech: Gayathrikeshia Holcomb HI Tech:VINEET Mayen RT(R)(N) Ht: 5 ft 6 in Wt: 221 lbs Bra Size: 38d HR: 82 bpm BP: 145/74 mmHg BSA: 2.09 m2 BMI: 35.6 History: chest pain..short of breath..fatigue Procedure: Patient exercised on Aba protocol 6.30 minutes and sec, resting heart rate 82 bpm, resting blood pressure 164/86 mmHg, with exercise maximum heart rate achived was 118 bpm which is Equal to 88 % of the maximum predicted heart rate and blood pressure was 154/90 mmHg. Patient has Adequate exercise capacity, achieved 7.0 METs of workload on treadmill, the blood pressure response to exercise was normal. Electrocardiogram Resting electrocardiogram showed sinus rhythm nonspecific ST-T changes, with exercise there is additional millimeter ST segment depression noted from the baseline EKG. The EKG portion of the exercise Myoview is nondiagnostic due to baseline abnormal EKG. Cardiac Stress and Resting SPECT Images: Cardiac Stress and Resting SPECT images were obtained using technetium 99m Myoview 30.9 mCi stress and 10.51 mCi at rest. Gated SPECT for the analysis of segmental wall motion and calculation of the ejection fraction also done. Cardiac stress and resting SPECT images show decrease tracer activity in the distal anterior apical wall and anteroseptal wall which partially improves on the resting images raising the concerns for mixed ischemia and scar, this study is technically limited due to patient's body habitus, possibility of breast attenuation cannot be excluded. Computer derived ejection fraction is 60% with mild apical wall hypokinesis. Right ventricle is mildly enlarged with normal contractility. Conclusion: 1. The EKG portion of the exercise Myoview is nondiagnostic due to baseline abnormal EKG, patient has adequate exercise capacity achieved 7 mets of workload on treadmill, the blood pressure response to exercise was normal, patient complained of chest, shoulder and arm pain with exercise which persisted in the recovery. It was relieved with nitroglycerin in the office. 2. Scintigraphic evidence of mixed ischemia and scar involving the distal anterior, apical and anteroseptal wall, possibility of breast attenuation cannot be excluded. This study is technically limited due to patient's body habitus. Computer derived ejection fraction 60% with mild apical wall hypokinesis, right ventricle is mildly enlarged with normal contractility. 3. Likely abnormal exercise Myoview study. Electronically signed by : Cortez Otero, 05/01/2020 11:40:53
--- NOTE | 2020-05-01 06:14 | CA_ITS ---
APPROVED REPORT Exam: Exercise Treadmill Technologist: Radha Holcomb, Ht: 5 ft 6 in Wt: 221 lbs BSA: 2.09 m2 HR: 82 bpm BP: 145/74 mmHg Rhythm: NSR,ST-T ABNORMALITIES INFERIORLY Medical History Medical History: HTN, Hyperlipidemia Medications: Amlodipine,,,,, Levothyroxine,,,,, Metoprolol,,,,, Asa,,,,, Gabapentin,,,,, Escitalopram,,,,, Albuterol,,,,, Cyclobenzaprine,,,,, Allergies: No known drug allergies Cardiac Risk Factors: HTN, Hyperlipidemia, FHX of CAD Stress Test Details Test: Manual Treadmill HR Resting HR: 87 bpm Max Heart Rate (APMHR): 166 bpm Max HR Achieved: 146 bpm Target HR (85% APMHR): 141 bpm % of APMHR: 87 Recovery HR: 118 bpm BP Resting BP: 145.0/74.0 mmHg Max BP: 162.0/82.0 mmHg Recovery BP: 154.0/90.0 mmHg ECG Resting ECG: NSR,ST-T ABNORMALITIES INFERIORLY Clinical Exercise duration: 06:31 min Highest Stage Achieved: Exercise capacity: 7.0 METs Stress ECG Conclusion PATIENT WALED 6:30 ON FERNANDO PROTOCOL WITH MAX HEART RATE 146 BPM WHICH IS 88% OF PM FOR AGE. MAX BP 164/86. METS = 7.0. TEST STOPPED DUE TO SOA AND FATIGUE. LEFT CHEST PAIN WITH PAIN IN LEFT SHOULDER AND UPPER LEFT ARM. NO ARRHYTHMIAS/ECTOPY. EXAGGERATION OF BASELINE ST-T ABNORMALITIES IN THE INFERIOR LEADS. CHEST AND LEFT SHOULDER/ARM PAIN WITH EXERCISE. NON-DIAGNOSTIC EKG'S DUE TO BASELINE ABNORMALITIES. MYOVIEW IMAGES REPORTED SEPARATELY. Test Summary REST . . . . . . . Standing REST . . . . . . . Sitting REST 05:49 0.0 0.0 87 . 145/ 74 . . Stage 1 01:00 10.0 1.7 112 . . . . Stage 1 02:00 10.0 1.7 124 . . . . Stage 1 03:00 10.0 1.7 129 . 160/ 88 . . Stage 2 01:00 12.0 2.5 135 . . . . Stage 2 02:00 12.0 2.5 138 . . . . Stage 2 . . . . . . . Cardiolite injected Stage 2 03:00 12.0 2.5 141 . . . . Stage 3 . . . . . . . Stage held Stage 3 . . . . . . . Stage resumed Stage 3 . . . . . . . Stage held Stage 3 . . . . . . . Protocol changed to Manual Treadmill Stage 3 . . . . . . . Stage resumed Stage 3 00:31 13.0 3.1 145 . . . Stop exercise at 06:31 RECOVERY . . . . . . . Chest pain RECOVERY 01:00 0.0 0.0 124 . . . . RECOVERY 02:00 0.0 0.0 114 . . . . RECOVERY 03:00 0.0 0.0 102 . 162/ 82 . . RECOVERY 04:00 0.0 0.0 95 . 140/ 77 . . RECOVERY 05:00 0.0 0.0 90 . 137/ 77 . . RECOVERY 05:18 0.0 0.0 89 . 137/ 77 . . Electronically signed by : Cortez Otero, 05/01/2020 11:41:13
--- NOTE | 2020-05-01 09:42 | HMH.ITSHM ---
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 [] asa amlodipine metoprool
--- NOTE | 2020-05-01 11:31 | HMH.PNCARD ---
Subjective Date: 05/01/20 Time: 11:31 Principal diagnosis: UAP Interval history: 55-year-old white female seen in the cardiac clinic today for abnormal stress test. Patient had slight ST depression laterally and exacerbation of her inferior EKG abnormalities during the stress test with onset of chest pain. Echocardiogram shows apical wall motion abnormality with stress nuclear images show an anteroseptal defect. During the office visit today patient did relate chest and left arm discomfort for which she received sublingual nitroglycerin with subsequent drop in blood pressure to 100 mmHg in which time she related she feels lightheaded and dizzy. She was given 4 baby aspirin with subsequent admission to the hospital for unstable angina pectoris. Plan will be to catheter tomorrow. Exam - *Routine HEENT Exam Head: Present: normocephalic Eye: Present: EOMI, PERRL ENT: Present: mucous membranes moist - *Routine Neck Exam Present: supple. Absent: JVD, carotid bruit - *Routine Respiratory Exam Present: CTA bilaterally. Absent: accessory muscle use, rales, rhonchi, wheezes - *Routine Cardiovascular Exam Present: RRR. Absent: murmur, gallop, rubs - *Routine Abdominal Exam Present: soft. Absent: tenderness, distended, guarding - *Routine Extremities Exam Absent: edema, calf tenderness - *Routine Neurological Exam Present: alert, oriented X3, moving all extremities Progress Note: A&P (1) Unstable angina pectoris Status: Acute Current Visit: Yes (2) Abnormal cardiovascular stress test Status: Acute Current Visit: Yes (3) Abnormal echocardiogram Status: Acute Current Visit: Yes (4) Tobacco use Status: Acute Current Visit: Yes (5) Hypertension Status: Chronic Current Visit: No Assessment and Plan for All Diagnoses:: 1. Unstable angina pectoris with abnormal EKG, abnormal echo and abnormal stress test. Plan to admit the patient for IV fluids, aspirin, loading dose of Brilinta and heparin with plans to proceed with cardiac catheterization tomorrow as long as patient remains stable. 2. Tobacco use discontinued 1 month ago 3. Hard of hearing 4. Hypertension 5. Hyperlipidemia [facility] Pre-cath Criteria Clinical evaluation and indication for coronary angiography: suspected CAD, new onset angina <= 2 months Patient is describing chest pain symtom as:: typical angina Clinical risk factors:: Hypertension Hyperlipidemia Tobacco use How many antianginals is the patient taking?: 2 Patient is taking:: beta reinaldo, CCB Myoview stress test imaging:: Abnormal with anteroseptal defect Risks and benefits:: We will plan to proceed with LHC/coronary angiography with right radial access. The patient has been educated on the risks and benefits of proceeding with LHC/coronary angiography with right radial access. The patient verbalized understanding and is agreeable in proceeding with the procedure. SCAI (diagnostic catheter AUC results):: A7
--- NOTE | 2020-05-01 12:24 | PC.NURSE ---
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 Pt needs monitor, order entered by nurse per reny burden request.
--- NOTE | 2020-05-01 13:09 | P.CONPHA_ITS ---
[facility] Pharmacy VTE Monitoring - Patient Demographics Admission date: 05/01/20 Report Date: 05/01/20 Time: 13:09 Allergies/Adverse Reactions: Patient Allergies No Known Drug Allergies Allergy (Unknown, Verified 05/01/20 10:41) Height: 1.68 m Weight: 99.053 kg Patient Problems: Current Active Problems Unstable angina pectoris (Acute) Abnormal cardiovascular stress test (Acute) Abnormal echocardiogram (Acute) Tobacco use (Acute) - VTE Risk Was VTE Risk Assessment Performed: Yes VTE Score: 2 VTE Risk Level: Very Low Risk Clinical Trial Participant: No - Prophylaxis VTE Prophylaxis Ordered?: Yes Types of VTE Prophylaxis: TEDS Knee High
--- NOTE | 2020-05-01 13:17 | PC.NURSE ---
patient complaints of chest pain. spoke with neil fu who stated to give a 1/2 inch of nitro paste, and to order a stat troponin to be ran on the blood drawn when she arrived to floor.
--- NOTE | 2020-05-01 13:28 | PC.NURSE ---
patient describes pain as a stabbing sensation. compares the pain to how it feels when you have a paper cut but in the chest
[2020-05-01 13:39] LABS: Chloride 103 mmol/L (98-107); Potassium 4.1 mmoL/L (3.5-5.1); Sodium 138 mmol/L (136-145)
[2020-05-01 13:41] LABS: Blood Urea Nitrogen 18 mg/dl (7-17); Creatinine Clearance Estimated 126 mL/min (50-200); Estimated Glomerular Filt Rate 75 ml/min (>60); GFR (African American) 90 ML/MIN (>60)
[2020-05-01 13:42] LABS: Alanine Aminotransferase 32 U/L (12-78); Albumin Level 4.1 g/dl (3.5-5.0); Albumin/Globulin Ratio 1.3 (1.1-1.8); Alkaline Phosphatase 106 U/L (38-126); Anion Gap 12.1 mEq/L (5-15); Aspartate Amino Transferase 28 U/L (14-36); Basophils # 0.1 K/mm3 (0-0.2); Basophils % 0.6 % (0.1-2.0); Bilirubin,Total 0.5 mg/dl (0.2-1.3); Carbon Dioxide 27 mmol/L (22.0-30.0); Cholesterol 300 mg/dl (140-200); Eosinophils # 0.2 K/mm3 (0.0-0.4); Eosinophils % 2.1 % (0.1-12.0); Globulin 3.1 g/dL (1.3-3.2); Glucose 93 mg/dl (74-100); Hematocrit 39.1 % (37.0-47.0); Hemoglobin 13.2 g/dL (12.2-16.2); Lymphocytes # 2.1 K/mm3 (0.7-4.5); Lymphocytes % 27.2 % (10-50); Mean Corpuscular HGB Conc 33.9 g/dL (31.8-35.4); Mean Corpuscular Volume 94.4 fl (81-99); Mean Platelet Volume 8.7 fl (7.4-10.4); Monocytes # 0.3 K/mm3 (0.1-1.0); Monocytes % 3.6 % (1.7-9.3); Neutrophils # 5.2 K/mm3 (1.8-7.8); Neutrophils % 66.5 % (37.0-80.0); Platelet Count 300 K/mm3 (142-424); Red Blood Count 4.14 M/mm3 (4.20-5.40); Red Cell Distribution Width 14.4 % (11.5-17.5); Total Protein,Serum 7.2 g/dl (6.3-8.2); Triglycerides 203 mg/dl (30-150); VLDL Cholesterol 41 mg/dL (0-40); White Blood Count 7.8 K/mm3 (4.8-10.8)
--- NOTE | 2020-05-01 13:42 | PC.NURSE ---
since nitro patch patient states pain has gone from a 6 to a 3
[2020-05-01 13:43] LABS: Chol/HDL Ratio 5.6 (1-3.5); HDL Cholesterol 54 mg/dl (40-60)
[2020-05-01 13:53] LABS: Direct LDL Cholesterol 200.29 mg/dL (100-129)
[2020-05-01 13:57] LABS: Troponin I < 0.01 ng/ml (0.00-0.034)
--- NOTE | 2020-05-01 15:31 | PC.NURSE ---
since nitro patch placement patient states she feels fine . NO more complaints of chest pain at this time. this was relayed to neil fu. he then ordered scheduled nitropaste and to give her dose of metoprolol now. he vitals have been stable. patient is hard of hearing so staff has spoken loudly and writing as needed to educate patient and assist with care. she rings out as needed. plan for heart cath tomorrow. will continue to monitor.
--- NOTE | 2020-05-01 17:48 | PC.NURSE ---
SPOKE WITH CARLOS ENRIQUE ROGERS AT THIS TIME ABOUT PATIENT CHEST PAIN AND SHORTNESS OF BREATH. HE STATED TO GIVE 2MG MORPHINE IV ONE TIME, IF THAT DOESN'T HELP THEN PATIENT NITRO PATCH CAN INCREASE TO 1 INCH.
--- NOTE | 2020-05-01 18:00 | ECG_ITS ---
APPROVED REPORT Exam: Resting ECG HR:92 bpm ECG Measurements Heart Rate 92 AXES WA 132 P 30 QRSd 78 QRS 17 QT 344 T 60 QTc 425 <Conclusion> Normal sinus rhythm Septal infarct, age undetermined Abnormal ECG Electronically signed by : Fercho Rea, 05/04/2020 21:18:06
[2020-05-01 18:36] LABS: Troponin I < 0.01 ng/ml (0.00-0.034)
--- NOTE | 2020-05-01 18:56 | HMH.HP ---
*Admission Date: 05/01/20 *Chief complaint: chest pain *History of present illness: 55-year-old white female seen in the cardiac clinic today for abnormal stress test. Patient had slight ST depression laterally and exacerbation of her inferior EKG abnormalities during the stress test with onset of chest pain. Echocardiogram shows apical wall motion abnormality with stress nuclear images show an anteroseptal defect. During the office visit today patient did relate chest and left arm discomfort for which she received sublingual nitroglycerin with subsequent drop in blood pressure to 100 mmHg in which time she related she feels lightheaded and dizzy. She was given 4 baby aspirin with subsequent admission to the hospital for unstable angina pectoris. Plan will be to catheter tomorrow. per Ross Qureshi echo and gxt reviewed [facility] History Medical History: Reports:: Asthma, Depression, Hypertension, Lung Disease, Migraine Denies:: Cancer, Diabetes Mellitus Type 1, Diabetes Mellitus Type 2, Internal Pacemaker, MRSA, Seizures *Have you ever received a pneumonia vaccine?: No (states she has received in past but is past due for another) *Have you received a flu vaccine this season?: No Other Medical History: Reports: Anemia, Arthritis, Fibromyalgia, Thyroid Disease, Other. Denies: Blood Transfusion Reaction, Hypothyroidism Laterality Cases: Right: Arthroscopy Knee, Breast Biopsy, Total Knee Replacement Other Surgeries: Yes: Cholecystectomy, Colonoscopy, , Hernia Repair, Hysterectomy-Total, Thyroidectomy, Other (bladder sling and hernia mesh). No: Pacemaker Amputation: No Fractures: No - *Social History Last grade of school completed: 11th or 12th Smoking Status: Former smoker Tobacco Type: e-cigarettes # Packs/Day (cigarettes): 1 Alcohol Intake: never Substance Use Type: denies use *Occupational Status:: other Housing: other Household Members: other *Travel in the last 8 weeks: None - Psychiatric History Pschychiatric History:: Reports:: Depression Family Hx:: Asthma, Cancer, Diabetes, Heart Attack, Alcoholism Review of Systems - Constitutional Reports other - Eyes Denies blurry vision - ENT Reports abnormal hearing (deaf) - *Cardiovascular Reports chest pain, Reports shortness of breath with activity - *Respiratory Reports shortness of breath with activity - *Gastrointestinal Reports loose stools - *Musculoskeletal Reports joint pain, Reports other - *Neurologic Denies loss of vision - Psychiatric Reports abnormal sleep pattern Meds Home Medications Medication Instructions Recorded Confirmed Type diclofenac sodium 75 mg 75 mg PO BID #180 tab 02/14/20 05/01/20 Rx tablet,delayed release gabapentin 800 mg tablet 800 mg PO TID #90 tab 02/19/20 05/01/20 Rx cyclobenzaprine 10 mg tablet 10 mg PO TID #90 tab 04/15/20 05/01/20 Rx zolpidem 5 mg tablet 5 mg PO QHS PRN #2 tab 04/17/20 05/01/20 Rx escitalopram oxalate 10 mg tablet 10 mg PO DAILY tab 04/22/20 05/01/20 History levothyroxine 150 mcg tablet 150 mcg PO DAILY tab 04/22/20 05/01/20 History Albuterol Sulfate [Proventil Hfa] 2 puff INHALATION Q6HP PRN 05/01/20 05/01/20 History Amlodipine Besylate [Amlodipine 5 mg PO DAILY 05/01/20 05/01/20 History 5mg tab] Aspirin [Low Dose Aspirin EC] 81 mg PO DAILY 05/01/20 05/01/20 History Metoprolol Succinate [Metoprolol 25 mg PO DAILY 05/01/20 05/01/20 History Succinate 25mg Tablet*] Allergies Allergy/AdvReac Type Severity Reaction Status Date / Time No Known Drug Allergies Allergy Unknown Verified 05/01/20 10:41 Exam Vital signs and Labs for Last 24 Hours: Temp Pulse Resp BP Pulse Ox 98.4 F 100 H 16 130/76 97 05/01/20 15:10 05/01/20 17:25 05/01/20 15:10 05/01/20 15:10 05/01/20 15:10 Laboratory Results - last 24 hr 05/01/20 11:50: Troponin I < 0.01 05/01/20 11:50: WBC 7.8, RBC 4.14 L, Hgb 13.2, Hct 39.1, MCV 94.4, MCH 32.0 H, MCHC 33.9, RDW 14.4, Plt Count 300, MPV 8.7
--- NOTE | 2020-05-01 20:14 | PC.NURSE ---
morphine helped patient pain making it a zero at this time. neil uf had also ordered a ekg and troponin which were within normal limits. patient nitro paste remains at 1/[address] lazar gave one time order for immodium for patient complaints of diarrhea. passed in report plan for heart cath tomorrow.
[2020-05-02] VITALS (17 sets, daily range): BP systolic 111–146; BP diastolic 66–83; PULSE 70–86; RESP 14–20; TEMP 35.9–37.2; O2SAT 95–100; BMI 35.0
--- NOTE | 2020-05-02 | IR_ITS ---
APPROVED REPORT Patient Location: Inpatient Book Sewer: VINEET Mondragon RT (R) PROCEDURES Left heart catheterization Left ventriculogram Selective coronary angiogram INDICATION High risk abnormal Myoview, Abnormal echocardiogram, Unstable angina Informed consent was obtained prior to the procedure. COMPLICATIONS none Estimated Blood Loss: less than 10 mls TECHNIQUE One percent lidocaine used to anesthetize the right anterior aspect of the wrist. The right radial artery was accessed via the Seldinger technique. A 6 Sinhala sheath was placed in the right radial artery. 2.5 mg of verapamil, 800 mcg of nitroglycerin, 1mg Lidocaine and 5000 U Heparin were given through the arterial sheath. The trap catheter was also used to perform left heart catheterization, left ventriculogram and selective coronary angiogram. At the end of the procedure the sheath was removed good hemostasis was achieved using Traclet band, patient was transferred to the postop holding area in stable condition. ANGIOGRAPHIC RESULTS The left main artery Normal The left anterior descending artery Mild proximal smooth 10 to 20% stenosis with remaining vessel normal The circumflex artery Nondominant normal The right coronary artery Large dominant with a proximal 10 to 20% stenosis The GUTIERREZ ventriculogram reveals Preserved 55% The left ventricular end-diastolic pressure 10 mmHg IMPRESSION Mild [id number] coronary artery disease Preserved ejection fraction Resting tachycardia Normal left ventricular end-diastolic pressure PLAN 1. Medical management Electronically signed by : Pravin Marquis, 05/02/2020 10:15:55
--- NOTE | 2020-05-02 04:46 | PC.NURSE ---
Pt rested well this shift. No c/o CP,SOA, Dizziness, or N/V. Pt has been NSR on telemetry. Pt took a shower and has been trimmed and prepped for cath in AM. Pt has remained NPO since midnight. BP tolerating nitro well. Communication tools used as needed d/t pt being [facility].
--- NOTE | 2020-05-02 07:44 | HMH.PNCARD ---
Subjective Date: 05/02/20 Time: 07:44 Principal diagnosis: UAP Interval history: 55 yo WF in bed in NAD. Some recurrent CP last evening that resolved with IV morphine. Troponins normal X 2 with EKG showing NSR without acute ST segment changes. History of Asthma for which she uses inhaler and nebulizer at home. Exam Vital signs and Labs for Last 24 Hours: Temp Pulse Resp BP Pulse Ox 97.9 F 73 18 132/74 97 05/02/20 04:00 05/02/20 04:00 05/02/20 04:00 05/02/20 04:00 05/02/20 04:00 Laboratory Results - last 24 hr 05/01/20 11:50: Troponin I < 0.01 05/01/20 11:50: WBC 7.8, RBC 4.14 L, Hgb 13.2, Hct 39.1, MCV 94.4, MCH 32.0 H, MCHC 33.9, RDW 14.4, Plt Count 300, MPV 8.7, Neut % (Auto) 66.5, Lymph % (Auto) 27.2, [place] % (Auto) 3.6, Eos % (Auto) 2.1, Baso % (Auto) 0.6, Neut # (Auto) 5.2, Lymph # (Auto) 2.1, [place] # (Auto) 0.3, Eos # (Auto) 0.2, Baso # (Auto) 0.1 05/01/20 11:50: Sodium 138, Potassium 4.1, Chloride 103, Carbon Dioxide 27, Anion Gap 12.1, BUN 18 H, Creatinine 0.80, Estimated Creat Clear 126, Estimated GFR 75, Est GFR ( Amer) 90, Glucose 93, Calcium 9.0, Total Bilirubin 0.5, AST 28, ALT 32, Alkaline Phosphatase 106, Total Protein 7.2, Albumin 4.1, Globulin 3.1, Albumin/Globulin Ratio 1.3, Triglycerides 203 H, Cholesterol 300 H, LDL Cholesterol Direct 200.29 H, VLDL Cholesterol 41 H, HDL Cholesterol 54, Cholesterol/HDL Ratio 5.6 H 05/01/20 18:05: Troponin I < 0.01 I & O for Last 24 hours: Intake & Output 04/29/20 04/30/20 05/01/20 05/02/20 11:59 11:59 11:59 11:59 Intake Total 1260 / 1260 Output Total 500 / 500 Balance 760 / 760 Weight 218 lb 6 oz 218 lb 4 oz - *Routine Respiratory Exam Present: CTA bilaterally. Absent: accessory muscle use, rales, rhonchi, wheezes - *Routine Cardiovascular Exam Present: RRR. Absent: murmur, gallop, rubs - *Routine Neurological Exam Present: alert, oriented X3, moving all extremities Progress Note: A&P (1) Unstable angina pectoris Status: Acute Current Visit: Yes (2) Abnormal cardiovascular stress test Status: Acute Current Visit: Yes (3) Abnormal echocardiogram Status: Acute Current Visit: Yes (4) Tobacco use Status: Acute Current Visit: Yes (5) Hypertension Status: Chronic Current Visit: No Assessment and Plan for All Diagnoses:: 1. LHC today. Further recommendations to follow. On ASA and Brilinta and isosorbide. 2. HTN, on norvasc, metoprolol 3. HLD, on statin
--- NOTE | 2020-05-02 09:25 | HMH.PHAINT ---
Home medication reconciliation completed using list from home pharmacy and discussion with patients . Pt no longer taking lisinopril due to cough adverse reaction.
--- NOTE | 2020-05-02 13:26 | HMH.DCSUM ---
General - General Admission date:: 05/01/20 HPI HPI: 55-year-old white female seen in the cardiac clinic today for abnormal stress test. Patient had slight ST depression laterally and exacerbation of her inferior EKG abnormalities during the stress test with onset of chest pain. Echocardiogram shows apical wall motion abnormality with stress nuclear images show an anteroseptal defect. During the office visit today patient did relate chest and left arm discomfort for which she received sublingual nitroglycerin with subsequent drop in blood pressure to 100 mmHg in which time she related she feels lightheaded and dizzy. She was given 4 baby aspirin with subsequent admission to the hospital for unstable angina pectoris. Plan will be to catheter tomorrow. per Ross Qureshi echo and gxt reviewed Hospital Course Hospital Course: taken to supervisor laboratory animal facility this morning following abnormal stress test found to have mild non-flow limiting disease suitable for medical management Objective Vital signs: Temp Pulse Resp BP Pulse Ox 98.2 F 81 20 119/66 97 05/02/20 08:00 05/02/20 10:26 05/02/20 10:26 05/02/20 10:26 05/02/20 10:26 no acute distress - *Routine HEENT Exam Head: Present: normocephalic, atraumatic Eye: Present: EOMI - *Routine Neck Exam Present: supple, full ROM. Absent: JVD - *Routine Respiratory Exam Present: CTA bilaterally. Absent: accessory muscle use - *Routine Cardiovascular Exam Present: RRR, Normal S1, Normal S2. Absent: murmur - *Routine Abdominal Exam Present: soft - *Routine Extremities Exam Absent: cyanosis, clubbing, edema, calf tenderness - *Routine Skin Exam Present: intact. Absent: cyanosis, jaundice - *Routine Neurological Exam Present: alert, oriented X3. Absent: hearing grossly intact - Routine Psychiatric Exam Present: normal affect, normal thought process Results Labs on day of discharge: Labs from last 24 hours 05/01/20 05/01/20 05/01/20 18:05 11:50 11:50 WBC 7.8 RBC 4.14 L Hgb 13.2 Hct 39.1 MCV 94.4 MCH 32.0 H MCHC 33.9 RDW 14.4 Plt Count 300 MPV 8.7 Neut % (Auto) 66.5 Lymph % (Auto) 27.2 [place] % (Auto) 3.6 Eos % (Auto) 2.1 Baso % (Auto) 0.6 Neut # (Auto) 5.2 Lymph # (Auto) 2.1 [place] # (Auto) 0.3 Eos # (Auto) 0.2 Baso # (Auto) 0.1 Sodium 138 Potassium 4.1 Chloride 103 Carbon Dioxide 27 Anion Gap 12.1 BUN 18 H Creatinine 0.80 Estimated Creat Clear 126 Estimated GFR 75 Est GFR ( Amer) 90 Glucose 93 Calcium 9.0 Total Bilirubin 0.5 AST 28 ALT 32 Alkaline Phosphatase 106 Troponin I < 0.01 Total Protein 7.2 Albumin 4.1 Globulin 3.1 Albumin/Globulin Ratio 1.3 Triglycerides 203 H Cholesterol 300 H LDL Cholesterol Direct 200.29 H VLDL Cholesterol 41 H HDL Cholesterol 54 Cholesterol/HDL Ratio 5.6 H 05/01/20 11:50 WBC RBC Hgb Hct MCV MCH MCHC RDW Plt Count MPV Neut % (Auto) Lymph % (Auto) [place] % (Auto) Eos % (Auto) Baso % (Auto) Neut # (Auto) Lymph # (Auto) [place] # (Auto) Eos # (Auto) Baso # (Auto) Sodium Potassium Chloride Carbon Dioxide Anion Gap BUN Creatinine Estimated Creat Clear Estimated GFR Est GFR ( Amer) Glucose Calcium Total Bilirubin AST ALT Alkaline Phosphatase Troponin I < 0.01 Total Protein Albumin Globulin Albumin/Globulin Ratio Triglycerides Cholesterol LDL Cholesterol Direct VLDL Cholesterol HDL Cholesterol Cholesterol/HDL Ratio DS: Diagnosis - Discharge Diagnosis (1) Unstable angina pectoris Status: Suspected (2) Abnormal cardiovascular stress test Status: Acute (3) Abnormal echocardiogram Status: Acute (4) Tobacco use Status: Chronic (5) Hypertension Status: Chronic Discharge Plan - Patient Discharge Instructions ACTIVITY: Ambul
--- NOTE | 2020-05-02 19:53 | PC.NURSE ---
THIS RN PROVIDED CATHERIZATION D/C INSTRUCTIONS TO PATIENT AND SPOUSE. BOTH VERBALIZED AN UNDERSTANDING. THIS RN REMOVED TRACELET, CLEANED AREA AND APPLIED NON ADHERENT GAUZE COVERED WITH TEGADERM. THIS RN STRESSED THE IMPORTANCE OF INFECTION PREVENTION. PATIENT VERBALIZED AN UNDERSTANDING. NO OTHER CONCERNS AT THIS TIME.
== END 2020-05-02 16:20 | disposition home or self-care (01) ==
LOC: 2ND 11:28
PROVIDERS: Internal Medicine; Physician Assistant; Admitting Provider Family Medicine; PCP Family Medicine; Visit Provider Family Medicine
DX: R07.9 Chest pain, unspecified (principal); R94.31 Abnormal electrocardiogram [ECG] [EKG]; I25.110 Atherosclerotic heart disease of native coronary artery with unstable angina pectoris; Z72.0 Tobacco use; I10 Essential (primary) hypertension; D64.9 Anemia, unspecified; E03.9 Hypothyroidism, unspecified; Z79.82 Long term (current) use of aspirin; Z79.51 Long term (current) use of inhaled steroids; Z79.899 Other long term (current) drug therapy
CPT/HCPCS: 36415; 78452; 80053; 80061; 84484; 85025; 93005; 93017; 93306; 93458; 99152; A9502; C1725; C1769; G0378; J1644; Q9967

== ENCOUNTER → 2020-05-06 08:29 | Outpatient (CLI) | payer MEDICAID, SELFPAY ==
--- NOTE | 2020-05-06 08:33 | MM_ITS ---
PROCEDURE: MM DIG SCREENING MAMM BI W/CAD Digital Breast Tomosynthesis Included CLINICAL INDICATION: screening there is a history of breast cancer in the patient's mother diagnosed after menopause. Previous biopsy right breast for benign disease. COMPARISON: MG DMDXUWAR DIG MAMM-DX UNI RT W/AV W/CAD from 08/04/2017 MG SCBI MM Dig screening mamm BI w/CAD from 08/11/2018 MG DXLT MM Dig mamm DX unilat LT CAD from 09/22/2018 TECHNIQUE: Standard CC and MLO images and 3D Tomosynthesis was obtained. R2 CAD reviewed. FINDINGS: Scattered fibroglandular densities are seen throughout both breasts. There is a dominant benign-appearing smoothly marginated oval mass subareolar region right breast with a biopsy clip at is border. This actually appears slightly smaller in overall size with more well-defined borders and seen on the previous exam 08/11/2018.. There is a 2nd smaller benign-appearing nodular density lower central portion right breast which is stable and unchanged from previous exams. There are couple of benign-appearing microcalcifications in each breast. There is no new or suspicious lesion in either breast and no suspicious microcalcifications. IMPRESSION: Fibrofatty parenchyma with stable previously biopsied benign-appearing mass subareolar region right breast BI-RAD Category: 2 Benign Finding(s) FOLLOW-UP: 1YR 1 Year Follow-up (A letter has been sent to the patient regarding results of the study.) Dictated Dr. Castillo Palacio MD 05/09/2020 11:43 Dr. Castillo Yo MD in [place] 05/09/2020 11:43
== END ==
PROVIDERS: PCP Family Medicine; Visit Provider Physician Assistant
DX: Z12.31 Encounter for screening mammogram for malignant neoplasm of breast (principal)
CPT/HCPCS: 77063; 77067

== ENCOUNTER → 2020-05-08 08:31 | Outpatient (POV) | payer MEDICAID, SELFPAY ==
--- NOTE | 2020-05-08 09:05 | HMH.PAINSOAP ---
[facility] Pain Management SOAP Note Subjective:: Patient is a pleasant 55-year-old white female who presents today for follow-up after a lumbar epidural steroid injection. She is being treated for low back pain with lumbar radiculopathy symptoms. She has undergone previous RFA of facet joints as well. She says that she got up to 80% relief following her injection. She is complaining today, however, of right low back pain with radiation into her right hip and right groin. Rates her pain a 6 out of 10 today. She says it is worse with walking and does improve with sitting. She has tenderness noted over her right SI joint. Review of Systems General: No recent weight changes, no fever, no sleep disturbances Respiratory: No cough, no shortness of air, no recurring pulmonary infections Cardiovascular/peripheral vascular: No chest pain, no palpitations, no edema, no shortness of breath Gastrointestinal: No new onset incontinence, normal bowel movements reported Genitourinary: No new onset incontinence Musculoskeletal: Low back pain, right hip pain, right groin pain Psychiatric: Normal mood/affect Neurological: [Denies weakness in extremities], [denies balance issues] Objective:: Physical exam General: Alert and oriented x3, no acute distress, pleasant and cooperative, [on room air] Lungs: Respirations even and unlabored, symmetrical chest expansion Eyes: PERRL Musculoskeletal: Flexion and extension of lumbar spine somewhat guarded secondary to pain, deep tendon reflexes normal, strength in upper and lower extremities [5/5], [abnormal gait noted] positive [place]'s test, positive [place]'s test, positive distraction test Neurological: Speech clear, 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 She does have tenderness noted over her right SI joint. We will see her back in the clinic after her injection to reassess her symptoms. The patient has been instructed to contact clinic if she has any concerns before her next appointment. The patient and I specifically discussed risk factors for COVID19. These risks include, but are not limited to age greater than 60, heart or lung disease, diabetes, immunosuppression, and travel. We also discussed NSAIDs may worsen COVID19 infection or symptoms. Patient should not use NSAIDs to treat COVID19 signs or symptoms. Patient was also informed that any type of corticosteroid of any form (oral or injection) will decrease the patient's immune system response and may increase the likelihood of COVID19 infection and symptoms[address] Dr. Baca has reviewed this note and agrees with this plan of care. This note was dictated using voice recognition software and make contain errors or omissions. [facility] History I have reviewed the patient's past medical history: Yes Medical History: Reports:: Asthma, Depression, Hypertension, Lung Disease, Migraine Denies:: Cancer, Diabetes Mellitus Type 1, Diabetes Mellitus Type 2, Internal Pacemaker, MRSA, Seizures *Have you ever received a pneumonia vaccine?: No *Have you received a flu vaccine this season?: No Other Medical History: Reports: Anemia, Arthritis, Fibromyalgia, Thyroid Disease, Other. Denies: Blood Transfusion Reaction, Hypothyroidism Laterality Cases: Right: Arthroscopy Knee, Breast Biopsy Other Surgeries: Yes: Cholecystectomy, Colonoscopy, , Hernia Repair, Hysterectomy-Total, Thyroidectomy, Other (bladder sling and hernia mesh). No: Pacemaker Amputation: No Fractures: No - *Social History Smoking Status: Never smoker Tobacco Type: e-cigarettes # Packs/Day (cigarettes): 1 Alcohol Intake: never Substance Use Type: denies use *Occupational Status:: unemployed Housing: house Household Members: spouse, children *Travel in the last 8 weeks: None - Psychiat
[2020-05-08 09:12] VITALS: BP 129/77; PULSE 80; RESP 18; O2SAT 98; BMI 34.3
== END ==
PROVIDERS: PCP Physician Assistant; Visit Provider Clinical Nurse Specialist Family Health
DX: M51.16 Intervertebral disc disorders with radiculopathy, lumbar region (principal); M12.88 Other specific arthropathies, not elsewhere classified, other specified site; M47.896 Other spondylosis, lumbar region; M46.1 Sacroiliitis, not elsewhere classified
CPT/HCPCS: 99212

== ENCOUNTER → 2020-05-23 10:58 | Outpatient (CLI) | payer MEDICAID, SELFPAY ==
[2020-05-23 12:03] LABS: Chloride 96 mmol/L (98-107); Sodium 137 mmol/L (136-145)
[2020-05-23 12:04] LABS: Potassium 3.7 mmoL/L (3.5-5.1)
[2020-05-23 12:06] LABS: Blood Urea Nitrogen 18 mg/dl (7-17); Estimated Glomerular Filt Rate 65 ml/min (>60); GFR (African American) 79 ML/MIN (>60)
[2020-05-23 12:07] LABS: Anion Gap 15.7 mEq/L (5-15); Calcium 10.2 mg/dl (8.4-10.2); Carbon Dioxide 29 mmol/L (22.0-30.0); Glucose 125 mg/dl (74-100)
== END ==
PROVIDERS: Visit Provider Physician Assistant
DX: R06.02 Shortness of breath (principal); R07.9 Chest pain, unspecified; I10 Essential (primary) hypertension; I25.10 Atherosclerotic heart disease of native coronary artery without angina pectoris
CPT/HCPCS: 36415; 80048

== ENCOUNTER 2020-10-12 10:43 | Emergency (ER) | payer MEDICAID, SELFPAY ==
[2020-10-12 11:10] VITALS: BP 136/89; PULSE 88; RESP 19; TEMP 36.9; O2SAT 100; BMI 33.5
--- NOTE | 2020-10-12 11:20 | XR_ITS ---
PROCEDURE: XR COCCYX 2V CLINICAL INDICATION: FALL COMPARISON: No exams were available for comparison FINDINGS: No fracture or dislocation. No lytic or blastic change. There is normal mineralization. The joint spaces are well-preserved. No significant degenerative/arthritic changes. No erosive changes evident. Other findings:None. IMPRESSION: No acute findings. Dictated by: Dr. Castillo Yo MD 10/12/2020 13:26 Dr. Castillo Yo MD in [place] 10/12/2020 13:26
--- NOTE | 2020-10-12 11:20 | XR_ITS ---
PROCEDURE: XR HIP RT 2-3V W/PELVIS CLINICAL INDICATION: FALL COMPARISON: CR XR HIP RT 2-3V W/PELVIS from 07/19/2019 FINDINGS: No fracture or dislocation is evident. Truck facet changes at the L5-S1 level.. The SI joints and symphysis pubis appear normal. No lytic or blastic change. Unremarkable soft tissues. IMPRESSION: No acute findings. Dictated by: Dr. Castillo Yo MD 10/12/2020 13:25 Dr. Castillo Yo MD in [place] 10/12/2020 13:25
--- NOTE | 2020-10-12 11:45 | HMH.EDUTC ---
[facility] [place] Disposition Clinical Impression: Contusion, hip Qualifiers: Encounter type: initial encounter Laterality: right Qualified Code(s): S70.01XA - Contusion of right hip, initial encounter Coccyx contusion Qualifiers: Encounter type: initial encounter Qualified Code(s): S30.0XXA - Contusion of lower back and pelvis, initial encounter Disposition: Home, Self-Care Condition on Discharge: Good Instructions: Help for Hip Pain, DI for Hip Pain Additional Instructions: Ice to area for 20 min every couple of hours may help with pain and swelling Follow up with your Family Doctor if no improvement or any worsening of symptoms Over the counter Motrin and/or Tylenol may help with pain and discomfort if your doctor has told you that you can take them Soaking in warm water with epson salt may help with muscle pain Return if needed Straight to ER if any life threatening symptoms Referrals: Tiffanie Esqueda PA [Primary Care Provider] - As needed Forms: Work/School Release Time of Disposition: 12:52 Medical Decision Making - Agusto Inquiry Pt receiving controlled substance: No Agusto was queried for this patient: No Vital Signs: 10/12/20 11:10 10/12/20 12:52 Temperature 98.4 F 98.4 F Temperature Source Oral Pulse Rate 88 Pulse Rate [Right Brachial] 88 Respiratory Rate 19 19 Blood Pressure 136/89 Blood Pressure [Right Arm] 136/89 Blood Pressure Mean [Right Arm] 104 Blood Pressure Source [Right Arm] Automatic Cuff Blood Pressure Position [Right Arm] Sitting 02 Sat by Pulse Oximetry 100 Oxygen Delivery Method Room Air - Radiology Data #1 Image(s): Other (coccyx) Image Reviewed: Yes I reviewed the patient's radiology image w/the ED provider Preliminary Findings: No Fracture Seen #2 Image(s): Hip (with pelvis) Image Reviewed: Yes I reviewed the patient's radiology image w/the ED provider Preliminary Findings: No Fracture Seen [facility] [place] HPI - General Stated complaint: tailbone pain Time Seen by Provider: 10/12/20 11:45 Mode of Arrival: Ambulatory Source of Information: Patient Limitations: No Limitations Description of Symptoms (Recalled from Triage Doc. by RN): PATIENT REPORTS SHE FELL AT WORK LAST WEEK. C/O RIGHT HIP AND TAILBONE PAIN. STATES SHE CANNOT PUT PRESSURE ON RIGHT LEG AND IS HAVING TINGLING ON BOTTOM OF RIGHT FOOT HEENT Symptoms (Recalled from RN notes): No Resp Symptoms (Recalled from RN notes): No Skin Symptoms (Recalled from RN notes): No MS Symptoms (Recalled from RN notes): Yes Functional Status (Recalled from RN notes): WNL - History of Present Illness Provider Complaint: Patient state that she fell last week at work and landed on her buttock area States that she is having pain in her tailbone and radiates to her hip and down her right leg at times States that pain is worse when she sits on it or gets up and pulls on her pants to pull them up States that she has been walking on it but today was still having pain so she came in - Related Data Home Medications Medication Instructions Recorded Confirmed escitalopram oxalate 10 mg tablet 10 mg PO DAILY tab 04/22/20 10/02/20 levothyroxine 150 mcg tablet 150 mcg PO DAILY tab 04/22/20 10/02/20 Albuterol Sulfate [Proventil Hfa] 2 puff INHALATION Q6HP PRN 05/01/20 10/02/20 Amlodipine Besylate [Amlodipine 5 mg PO DAILY 05/01/20 10/02/20 5mg tab] Cyclobenzaprine HCl 10 mg PO TID 05/02/20 10/02/20 [Cyclobenzaprine 10mg Tab*] Previous Rx's Medication Instructions Recorded naltrexone 8 mg-bupropion 90 mg 1 tab PO DAILY #120 tab 05/08/20 tablet,extended release atorvastatin 10 mg tablet 10 mg PO DAILY #30 tab 05/13/20 hydrochlorothiazide 25 mg tablet 25 mg PO DAILY #30 tab 05/13/20 diclofenac sodium 75 mg 75 mg PO BID #60 tab 07/07/20 tablet,delayed release aspirin 81 mg tablet,delayed 81 mg PO DAILY #100 tab 07/21/20 release metoprolol succinate 25 mg 25 mg PO DAILY #90 tab 07/21/20 tablet,extended release 24
[2020-10-12 12:52] VITALS: BP 136/89; PULSE 88; RESP 19; TEMP 36.9; O2SAT 100
== END 2020-10-12 12:58 | disposition home or self-care (01) ==
PROVIDERS: Emergency Provider Nurse Practitioner; PCP Physician Assistant
DX: S70.01XA Contusion of right hip, initial encounter (principal); S30.0XXA Contusion of lower back and pelvis, initial encounter; W01.0XXA Fall on same level from slipping, tripping and stumbling without subsequent striking against object, initial encounter; Y92.69 Other specified industrial and construction area as the place of occurrence of the external cause; Y99.0 Civilian activity done for income or pay
CPT/HCPCS: 72220; 73502; 99202; G0463

== ENCOUNTER → 2020-11-24 09:43 | Outpatient (CLI) | payer MEDICAID, SELFPAY ==
--- NOTE | 2020-11-24 10:01 | XR_ITS ---
PROCEDURE: XR HIP LT 2-3V W/PELVIS CLINICAL INDICATION: LT hip pain COMPARISON: CR XR HIP RT 2-3V W/PELVIS from 11/24/2020 FINDINGS: Left hip: Mild osteoarthritic changes are present involving the left hip. No fracture or dislocation. No lytic or blastic change. Mild degenerative changes also present at the SI joint. Right hip: Mild osteoarthritic changes are present involving the right hip. No fracture or dislocation. No lytic or blastic change. Small bone island is present in the proximal femur. IMPRESSION: Mild osteoarthritic changes of both hips and left SI joint. Dictated by: Delvis Evans MD 11/24/2020 11:36 Delvis Evans MD in [place] 11/24/2020 11:36
--- NOTE | 2020-11-24 10:58 | XR_ITS ---
PROCEDURE: XR LUMBAR SPINE MIN 4V CLINICAL INDICATION: Back pain/hip pain COMPARISON: CR LS5 LUMBAR SPINE 5 VIEWS from 09/12/2015 FINDINGS: There is degenerative disc disease at T12-L1 and at L4-L5. There has been interval development 8 mm anterolisthesis of L4 on L5. Facet arthritic changes are present at L4-5 and L5-S1. Prominent facet hypertrophic changes are present at L4-5 No acute fracture or dislocation. No lytic or blastic change. IMPRESSION: Degenerative changes as described above with interval development of 8 mm anterolisthesis of L4 on L5 with degenerative disc disease and severe facet hypertrophic change at that level. Dictated by: Delvis Evans MD 11/24/2020 11:34 Delvis Evans MD in [place] 11/24/2020 11:34
== END ==
PROVIDERS: PCP Physician Assistant; Visit Provider Orthopaedic Surgery
DX: M25.551 Pain in right hip (principal); M25.552 Pain in left hip; M54.9 Dorsalgia, unspecified; M54.5 Low back pain
CPT/HCPCS: 72110; 73502

== ENCOUNTER → 2020-12-24 16:40 | Outpatient (CLI) | payer MEDICAID, SELFPAY ==
[2020-12-24 17:26] LABS: Basophils % 0.5 % (0.1-2.0); Eosinophils # 0.1 K/mm3 (0.0-0.4); Eosinophils % 1.6 % (0.1-12.0); Hematocrit 41.1 % (37.0-47.0); Hemoglobin 14.1 g/dL (12.2-16.2); Lymphocytes % 37.2 % (10-50); Mean Corpuscular HGB Conc 34.3 g/dL (31.8-35.4); Mean Corpuscular Hemoglobin 29.8 pg (27.0-31.2); Monocytes # 0.3 K/mm3 (0.1-1.0); Monocytes % 3.9 % (1.7-9.3); Neutrophils # 4.5 K/mm3 (1.8-7.8); Neutrophils % 56.7 % (37.0-80.0); Platelet Count 363 K/mm3 (142-424); Red Blood Count 4.72 M/mm3 (4.20-5.40); Red Cell Distribution Width 15.4 % (11.5-17.5)
[2020-12-24 17:50] LABS: Alanine Aminotransferase 19 U/L (12-78); Albumin Level 4.6 g/dl (3.5-5.0); Albumin/Globulin Ratio 1.5 (1.1-1.8); Alkaline Phosphatase 126 U/L (38-126); Anion Gap 15.7 mEq/L (5-15); Aspartate Amino Transferase 25 U/L (14-36); Bilirubin,Total 0.4 mg/dl (0.2-1.3); Blood Urea Nitrogen 11 mg/dl (7-17); Calcium 9.9 mg/dl (8.4-10.2); Carbon Dioxide 26 mmol/L (22.0-30.0); Chloride 102 mmol/L (98-107); Chol/HDL Ratio 7.1 (1-3.5); Cholesterol 275 mg/dl (140-200); Estimated Glomerular Filt Rate 75 ml/min (>60); GFR (African American) 90 ML/MIN (>60); Glucose 117 mg/dl (74-100); HDL Cholesterol 39 mg/dl (40-60); Potassium 3.7 mmoL/L (3.5-5.1); Sodium 140 mmol/L (136-145); Total Protein,Serum 7.6 g/dl (6.3-8.2)
[2020-12-24 18:01] LABS: Direct LDL Cholesterol 157.76 mg/dL (100-129)
[2020-12-24 18:09] LABS: Free T4 (Free Thyroxine) 1.52 ng/dl (0.78-2.19); Triglycerides 439 mg/dl (30-150)
[2020-12-24 18:10] LABS: 25-OH Vitamin D, Total 14.9 ng/mL (30-100)
[2020-12-24 18:23] LABS: Thyroid Stimulating Hormone 4.74 uIU/mL (0.465-4.68)
[2020-12-26 14:01] LABS: FSH 18.3 mIU/mL (.); LH 19.4 mIU/mL (.); Progesterone 0.8 ng/mL (.)
[2021-01-01 10:41] LABS: Estrogen 57 pg/mL (.)
== END ==
PROVIDERS: Visit Provider Physician Assistant
DX: D64.9 Anemia, unspecified (principal); E03.9 Hypothyroidism, unspecified; E78.5 Hyperlipidemia, unspecified; I25.10 Atherosclerotic heart disease of native coronary artery without angina pectoris; R68.82 Decreased libido; E55.9 Vitamin D deficiency, unspecified
CPT/HCPCS: 80053; 80061; 82306; 82672; 83001; 83002; 84144; 84439; 84443; 85025

== ENCOUNTER → 2021-02-17 14:34 | Outpatient (CLI) | payer MEDICAID, SELFPAY | PROVIDERS: Visit Provider Nurse Practitioner Family | DX: N39.0 Urinary tract infection, site not specified (principal) | CPT/HCPCS: 87086 ==

== ENCOUNTER 2021-02-27 13:13 | Emergency (ER) | payer MEDICAID, SELFPAY ==
--- NOTE | 2021-02-27 13:11 | ECG_ITS ---
APPROVED REPORT Exam: Resting ECG HR:111 bpm ECG Measurements Heart Rate 111 AXES FL 122 P 51 QRSd 82 QRS 47 QT 320 T 67 QTc 435 Conclusion Sinus tachycardia Otherwise normal ECG Electronically signed by : Fercho Rea, 02/28/2021 07:21:56
[2021-02-27 13:15] VITALS: BP 141/93; PULSE 106; RESP 14; TEMP 36.8; O2SAT 100; BMI 34.3
--- NOTE | 2021-02-27 13:23 | XR_ITS ---
PROCEDURE: XR CHEST PORTABLE CLINICAL HISTORY: sob COMPARISON: DX CXR2V XR chest 2V from 12/13/2017 CR XR CHEST PORTABLE from 04/02/2020 CR XR CHEST PORTABLE from 04/21/2020 FINDINGS: The cardiomediastinal silhouette and pulmonary vascularity are within normal limits. The lungs are clear without infiltrates, suspicious nodules, or pleural effusions. No acute bony abnormalities. IMPRESSION: No acute findings. Dictated by: Dr. Castillo Yo MD 02/27/2021 14:35 Dr. Castillo Yo MD in [place] 02/27/2021 14:35
--- NOTE | 2021-02-27 13:29 | HMH.EDGENADL ---
ED Disposition Clinical Impression: COPD exacerbation Disposition: Home, Self-Care Condition on Discharge: Good Referrals: Provider,Referral, [Referring] - 3 days Time of Disposition: 14:21 - Critical Care Critical Care Time: No Attestation: On 02/27/21, the high probability of a clinically significant, sudden or life threatening deterioration of the following system(s) required my full and direct attention, intervention and personal management. The time I documented below is in addition to time spent performing reported procedures but includes the following listed in this critical care notation. Medical Decision Making - Medical Records Medical records reviewed: Yes: I reviewed the patient's medical records. - Agusto Inquiry Pt receiving controlled substance: No Vital Signs: 02/27/21 13:15 Temperature 98.2 F Temperature Source Oral Pulse Rate [Right Radial] 106 H Respiratory Rate 14 Blood Pressure [Right Arm] 141/93 H Blood Pressure Mean [Right Arm] 109 02 Sat by Pulse Oximetry 100 Oxygen Delivery Method Room Air - Lab Data Lab results reviewed: Yes: I reviewed the patient's lab results. Lab Results 02/27/21 13:22: NT-Pro-B Natriuret Pep 49.8 02/27/21 13:22: WBC 10.7, RBC 4.63, Hgb 13.8, Hct 41.7, MCV 90.1, MCH 29.7, MCHC 33.0, RDW 14.0, Plt Count 339, MPV 8.5, Neut % (Auto) 79.8, Lymph % (Auto) 16.3, [place] % (Auto) 2.6, Eos % (Auto) 0.8, Baso % (Auto) 0.5, Neut # (Auto) 8.5 H, Lymph # (Auto) 1.7, [place] # (Auto) 0.3, Eos # (Auto) 0.1, Baso # (Auto) 0.1 02/27/21 13:22: Sodium 137, Potassium 4.3, Chloride 103, Carbon Dioxide 28, Anion Gap 10.3, BUN 16, Creatinine 0.70, Estimated Creat Clear 139, Estimated GFR 87, Est GFR ( Amer) 105, Glucose 130 H, Calcium 9.3, Troponin I < 0.01 Result diagrams: 02/27/21 13:22 02/27/21 13:22 Orders (Tests/Meds): ED MEDICATIONS Discontinued Medications Generic Name Dose Route Start Last Admin Trade Name Alvaro PRN Reason Stop Dose Admin Aspirin 324 mg 02/27/21 13:25 02/27/21 13:34 Aspirin 81mg Chewable Tablet PO 02/27/21 13:26 324 mg ONCE ONE Administration Methylprednisolone Sodium Succinate 125 mg 02/27/21 13:42 02/27/21 13:52 Methylprednisolone Sod Succ 125mg Vial IV 02/27/21 13:43 125 mg ONCE ONE Administration ORDERS Category Date Time Status CXR --portable [XR chest portable] Stat Exams 02/27/21 13:23 Taken Troponin I Q3H Lab 02/27/21 16:30 Ordered Troponin I Q3H Lab 02/27/21 19:30 Ordered - Radiology Data #1 Image(s): Chest Image Reviewed: Yes I reviewed the patient's radiology results Preliminary Findings: Normal/NAD - ECG Data Tracing #1 111 bpm, sinus tachycardia, no ST elevation or depression, normal intervals, no ectopy. ECG initial impression date: 02/27/21 ECG initial impression time: 13:13 Medical Decision Narrative: 56yo F evaluated for shortness of breath and chest pain. Patient is in no acute distress on initial evaluation. She has coarse lung sounds throughout but is satting 100% on room air following a DuoNeb. Patient reports at home she only has albuterol. Chest pain/shortness of breath work-up is been initiated. The patient's tachycardic on initial evaluation, however she had just finished a DuoNeb with those vitals were recorded. Patient's laboratory studies are benign. Patient's chest x-ray shows no signs of pneumonia. She is afebrile. I believe the patient is suffering from a COPD exacerbation would benefit from steroids and antibiotics. She was treated with Solu-Medrol in the emergency department. At this time, she is appropriate and stable for discharge home with prednisone burst and azithromycin. Patient to follow-up with her PCP on Tuesday. General Adult HPI - General Chief complaint: Chest Pain Stated complaint: chest pain, soa Time Seen by Provider: 02/27/21 13:29 Mode of Arrival: Ambulatory Limitations: No Limitations Description of Symptoms (Recalled fr
[2021-02-27 13:33] LABS: Basophils # 0.1 K/mm3 (0-0.2); Basophils % 0.5 % (0.1-2.0); Eosinophils # 0.1 K/mm3 (0.0-0.4); Eosinophils % 0.8 % (0.1-12.0); Hematocrit 41.7 % (37.0-47.0); Hemoglobin 13.8 g/dL (12.2-16.2); Lymphocytes # 1.7 K/mm3 (0.7-4.5); Lymphocytes % 16.3 % (10-50); Mean Corpuscular Hemoglobin 29.7 pg (27.0-31.2); Mean Corpuscular Volume 90.1 fl (81-99); Mean Platelet Volume 8.5 fl (7.4-10.4); Monocytes # 0.3 K/mm3 (0.1-1.0); Monocytes % 2.6 % (1.7-9.3); Neutrophils # 8.5 K/mm3 (1.8-7.8); Neutrophils % 79.8 % (37.0-80.0); Platelet Count 339 K/mm3 (142-424); Red Blood Count 4.63 M/mm3 (4.20-5.40); White Blood Count 10.7 K/mm3 (4.8-10.8)
[2021-02-27 13:45] LABS: Anion Gap 10.3 mEq/L (5-15); Blood Urea Nitrogen 16 mg/dl (7-17); Calcium 9.3 mg/dl (8.4-10.2); Carbon Dioxide 28 mmol/L (22.0-30.0); Chloride 103 mmol/L (98-107); Creatinine Clearance Estimated 139 mL/min (50-200); Estimated Glomerular Filt Rate 87 ml/min (>60); GFR (African American) 105 ML/MIN (>60); Glucose 130 mg/dl (74-100); Potassium 4.3 mmoL/L (3.5-5.1); Sodium 137 mmol/L (136-145)
[2021-02-27 13:55] LABS: NT Pro Brain Natriuretic Pep. 49.8 pg/mL (0-125)
[2021-02-27 13:58] LABS: Troponin I < 0.01 ng/ml (0.00-0.034)
[2021-02-27 14:37] VITALS: BP 122/88; PULSE 88; RESP 16; TEMP 36.7; O2SAT 99
== END 2021-02-27 14:40 | disposition home or self-care (01) ==
PROVIDERS: Emergency Provider Family Medicine; PCP Physician Assistant
DX: J44.1 Chronic obstructive pulmonary disease with (acute) exacerbation (principal); F41.8 Other specified anxiety disorders; E78.5 Hyperlipidemia, unspecified; I10 Essential (primary) hypertension; M79.7 Fibromyalgia; F17.290 Nicotine dependence, other tobacco product, uncomplicated; Z79.899 Other long term (current) drug therapy
CPT/HCPCS: 71045; 80048; 83880; 84484; 85025; 93005; 96374; 99282

== ENCOUNTER 2021-06-28 09:39 | Emergency (ER) | payer MEDICAID, SELFPAY ==
[2021-06-28 09:40] VITALS: BP 126/84; PULSE 93; RESP 20; TEMP 37.1; O2SAT 100; BMI 33.4
--- NOTE | 2021-06-28 10:59 | HMH.EDUTC ---
[facility] [place] Impression: Scabies Disposition: Home, Self-Care Condition on Discharge: Good Instructions: Scabies, DI for Scabies Additional Instructions: Use the medications as directed. You will still itch for around another week, regardless. So, continue to take the benedryl that you are on for this. Follow up with your primary care doctor. GO TO THE ER FOR ANY WORSENING SYMPTOMS OR CONCERNS Prescriptions: Permethrin [Elimite] 1 applicatio TP ONCE #1 gm Transmission Status: Received by [employer] # methylPREDNISolone [Medrol] 4 mg PO DIRECTED 6 Days #21 packet Transmission Status: Received by [employer] # Triamcinolone Acetonide 1 applicatio TP TIDP PRN 7 Days #1 gm PRN Reason: Itching Transmission Status: Received by [employer] # Referrals: Tiffanie Esqueda PA [Primary Care Provider] - Time of Disposition: 11:07 Medical Decision Making - Medical Records Medical records reviewed: No: I reviewed the patient's medical records. - Agusto Inquiry Pt receiving controlled substance: No Vital Signs: 06/28/21 09:40 06/28/21 11:09 Temperature 98.7 F 98.7 F Temperature Source Oral Pulse Rate 93 H Pulse Rate [Right Brachial] 93 H Respiratory Rate 20 20 Blood Pressure 126/84 Blood Pressure [Right Arm] 126/84 Blood Pressure Mean [Right Arm] 98 Blood Pressure Source [Right Arm] Automatic Cuff Blood Pressure Position [Right Arm] Sitting 02 Sat by Pulse Oximetry 100 Oxygen Delivery Method Room Air [facility] [place] - General Stated complaint: rash on body Time Seen by Provider: 06/28/21 11:00 Mode of Arrival: Ambulatory Source of Information: Patient Limitations: No Limitations Description of Symptoms (Recalled from Triage Doc. by RN): PATIENT STATES AFTER A KITTEN SLEPT ON HER CHEST SHE DEVELOPED AN ITCHY RASH TO CHEST AND BILATERAL AXILLA X 1 WEEK HEENT Symptoms (Recalled from RN notes): No Resp Symptoms (Recalled from RN notes): No Skin Symptoms (Recalled from RN notes): Yes MS Symptoms (Recalled from RN notes): No Functional Status (Recalled from RN notes): WNL - History of Present Illness Provider Complaint: She states that she has had a itchy rash oh her chest, upper back, and lower abdomen and belt line for the past 3 days. She held a stray kitten against her chest before her symptoms began. She denies any fever, chills or feeling bad. - Related Data Previous Rx's Medication Instructions Recorded aspirin 81 mg tablet,delayed 81 mg PO DAILY #100 tab 07/21/20 release ergocalciferol (vitamin D2) 1,250 1,250 mcg PO WEEKLY #5 cap 12/26/20 mcg (50,000 unit) capsule gabapentin 800 mg tablet 800 mg PO TID #90 tab 02/17/21 naproxen 500 mg tablet 500 mg PO BID #30 tab 02/17/21 albuterol sulfate 90 mcg/actuation 2 puff INHALATION Q6HP PRN #8.5 g 04/01/21 aerosol inhaler atorvastatin 20 mg tablet 20 mg PO HS #30 tab 04/01/21 cholecalciferol (vitamin D3) 25 25 mcg PO DAILY #30 cap 04/01/21 mcg (1,000 unit) capsule levothyroxine 175 mcg tablet 175 mcg PO DAILY #30 tab 04/01/21 pen needle, diabetic 32 gauge x See Rx Instructions .ROUTE #100 04/21/21 1/ each cyclobenzaprine 10 mg tablet 10 mg PO TID PRN #30 tab 05/12/21 metoprolol succinate 25 mg See Rx Instructions .ROUTE 05/12/21 tablet,extended release 24 hr .COMPLEX #90 tab hydrochlorothiazide 25 mg tablet 25 mg PO DAILY #30 tab 05/26/21 Permethrin [Elimite] 1 applicatio TP ONCE #1 gm 06/28/21 Triamcinolone Acetonide 1 applicatio TP TIDP PRN 7 Days #1 06/28/21 gm methylPREDNISolone [Medrol] 4 mg PO DIRECTED 6 Days #21 06/28/21 packet Allergies Allergy/AdvReac Type Severity Reaction Status Date / Time No Known Drug Allergies Allergy Unknown Verified 06/15/21 09:59 - Worker's Comp Is this a Worker's Comp case?: No [facility] History - Hepatitis A Screen Drug use history?: No High risk sexual behaviors?: No History of sexually transmitted
[2021-06-28 11:09] VITALS: BP 126/84; PULSE 93; RESP 20; TEMP 37.1; O2SAT 100
== END 2021-06-28 11:12 | disposition home or self-care (01) ==
PROVIDERS: Emergency Provider Nurse Practitioner Family; PCP Physician Assistant
DX: B86 Scabies (principal)
CPT/HCPCS: 99202; G0463

== ENCOUNTER → 2021-09-09 15:24 | Outpatient (CLI) | payer MEDICAID, SELFPAY | PROVIDERS: PCP Physician Assistant; Visit Provider Nurse Practitioner | DX: Z20.822 Contact with and (suspected) exposure to COVID-19 (principal) | CPT/HCPCS: C9803; U0003; U0005 ==

== ENCOUNTER → 2021-12-07 08:08 | Outpatient (CLI) | payer MEDICAID, SELFPAY ==
--- NOTE | 2021-12-07 08:11 | MR_ITS ---
FINAL REPORT CLINICAL HISTORY: LBP, pain with extension, h/o lumbar fusion. HX BACK SURGERY X1YR AGO. LT SIDED LBP. RT LEG PAIN AND NUMBNESS. PRIOR MR 11-27-19 COMPARISON: [facility] 2019 FINDINGS: Multiplanar MR imaging of the lumbar spine was performed without contrast. On the sagittal T2-weighted images, disc degeneration is seen at several levels. There has been interval fusion at L4-5. The vertebral alignment is normal. There is no evidence of fracture. No bony mass is identified. The conus is seen at approximately the L1 level and has an unremarkable appearance. T11-12: Annular disc bulge with facet arthropathy and osteophytes. There is moderate right neuroforaminal narrowing. T12-L1: Annular disc bulge with facet arthropathy and osteophytes. There is mild bilateral neuroforaminal narrowing. L1-2: Annular disc bulge with facet arthropathy and mild bilateral neuroforaminal narrowing. L2-3: Annular disc bulge with facet arthropathy and mild bilateral neuroforaminal narrowing. L3-4: There is an annular disc bulge with facet arthropathy. There is no significant canal stenosis or neural foraminal narrowing. L4-5: Postoperative changes effusion with mild left neuroforaminal narrowing. L5-S1: Annular disc bulge with facet arthropathy and mild bilateral neuroforaminal narrowing. IMPRESSION: Interval postoperative change of fusion at L4-5 with improved canal stenosis. Reviewed, Interpreted and Dictated by Manish Lockhart III, MD Transcribed by Virginie Schafer Authenticated by Manish Lockhart III, MD on 12/07/2021 10:27:13 AM [facility]
== END ==
PROVIDERS: PCP Physician Assistant; Visit Provider Physician Assistant
DX: M54.50 Low back pain, unspecified (principal)
CPT/HCPCS: 72148; 76376

== ENCOUNTER → 2022-02-17 08:54 | Outpatient (CLI) | payer MEDICAID, SELFPAY ==
--- NOTE | 2022-02-17 08:56 | XR_ITS ---
FINAL REPORT CLINICAL HISTORY: thoracic back pain FINDINGS: THORACIC SPINE SERIES. AP and lateral views were obtained. There is no acute fracture. There are moderate degenerative changes with osteophytes. There is mild leftward curvature. There is no malalignment. IMPRESSION: Moderate degenerative change with osteophytes. Reviewed, Interpreted and Dictated by Manish Lockhart III, MD Transcribed by Jeff Roberts Authenticated by Manish Lockhart III, MD on 02/17/2022 10:16:12 AM [facility]
== END ==
PROVIDERS: PCP Physician Assistant; Visit Provider Physician Assistant
DX: M54.6 Pain in thoracic spine (principal)
CPT/HCPCS: 72072

== ENCOUNTER → 2022-05-24 15:34 | Outpatient (CLI) | payer MEDICAID, SELFPAY ==
--- NOTE | 2022-05-24 15:35 | MM_ITS ---
PROCEDURE INFORMATION: Exam: MG Bilateral Screening 3D Mammography Exam date and time: 05/24/2022 3:40 PM Age: 57 years old Clinical indication: Screening examination. Her mother had breast cancer. TECHNIQUE: Imaging protocol: Bilateral Screening tomosynthesis and 2D mammography including computer-aided detection (CAD) when performed. COMPARISON: 1. MG MM DIG SCREENING MAMM BI W/CAD 05/06/2020 8:50 AM 2. MG DXLT MM Dig mamm DX unilat LT CAD 09/22/2018 2:10 PM 3. MG SCBI MM Dig screening mamm BI w/CAD 08/11/2018 8:37 AM 4. MG DMDXUWAR DIG MAMM-DX UNI RT W/AV W/CAD 08/04/2017 1:14 PM FINDINGS: MAMMOGRAPHY: Breast composition: There are scattered areas of fibroglandular density. Mass: No suspicious mass, with biopsy clip related to stable mass in the right periareolar breast, anterior 3rd. Architectural distortion: None. Calcifications: No suspicious calcifications. Asymmetric density: None. Skin thickening: None. Axillary adenopathy: None. IMPRESSION: No mammographic evidence of malignancy. Annual screening is recommended unless otherwise clinically indicated. ASSESSMENT: BI-RADS Category 2: Benign
== END ==
PROVIDERS: PCP Physician Assistant; Visit Provider Physician Assistant
DX: Z12.31 Encounter for screening mammogram for malignant neoplasm of breast (principal)
CPT/HCPCS: 77063; 77067

== ENCOUNTER → 2022-09-08 15:10 | Outpatient (CLI) | payer MEDICAID, SELFPAY ==
--- NOTE | 2022-09-08 15:10 | MR_ITS ---
PROCEDURE INFORMATION: Exam: MR Lumbar Spine Without Contrast Exam date and time: 09/08/2022 4:08 PM Age: 57 years old Clinical indication: Low back pain; Prior surgery; Surgery date: 6+ months; Patient HX: Lower back pain with pain down both legs stops at knees, also incontinence; Additional info: Low back pain, incontinence TECHNIQUE: Imaging protocol: Magnetic resonance imaging of the lumbar spine without contrast. COMPARISON: MR LUMBAR SPINE WO CON 12/07/2021 8:30 AM FINDINGS: Bones/joints: There is preservation of vertebral alignment and vertebral body heights. No marrow replacing process. Postoperative changes related to L4-L5 posterior interbody fusion. Susceptibility artifact from surgical hardware slightly distorts the assessment of surrounding structures Spinal cord: Conus and cauda equina nerve roots are unremarkable T11-T12: Diffuse disc bulge without significant spinal canal or neural foraminal narrowing. T12-L1: Diffuse disc bulge and facet arthropathy without significant spinal canal or neural foraminal narrowing L1-L2: No significant disc disease. No significant spinal canal stenosis. No neural foraminal stenosis. L2-L3: No significant disc disease. No significant spinal canal stenosis. No neural foraminal stenosis. L3-L4: No significant disc disease. No significant spinal canal stenosis. No neural foraminal stenosis. L4-L5: No significant disc disease. No significant spinal canal stenosis. No neural foraminal narrowing L5-S1: Focal annular tear diffuse disc bulge without significant spinal canal or neural foraminal narrowing. Soft tissues: Unremarkable. IMPRESSION: Status post L4-L5 posterior interbody fusion. No significant canal or neural foramina narrowing at any level.
== END ==
PROVIDERS: PCP Physician Assistant; Visit Provider Physician Assistant
DX: M54.16 Radiculopathy, lumbar region (principal); R15.9 Full incontinence of feces; R32 Unspecified urinary incontinence; R68.89 Other general symptoms and signs
CPT/HCPCS: 72148; 76376

== ENCOUNTER → 2022-09-28 12:29 | Outpatient (POV) | payer MEDICAID, SELFPAY ==
--- NOTE | 2022-09-28 13:08 | EXP.PAIN.OV ---
HPI Data of Consult Patient: new to practice Consult date: 09/28/22 Requesting Physician: Meg Saldivar APRN Primary Care Provider: SUE Colvin Consult Narrative Reason for consult: Low back pain History of present illness: Ms. Lerner is a 57 year old female who presents today as a new patient. She is a referral from Tiffanie Esqueda's office. Today she rates her pain a 5 out of 10. Patient states the pain is all in her low back that is progressively worsened over time. Patient states that this has been going on for years. Patient states that she has had a L4-L5 fusion that was approximately 2 years ago. Patient states that she is continue to have worsening pain since then along with numbness down to her bilateral knees. Patient states this is a constant aching, stabbing sensation that is worse with increased activity. Patient states she had been off work and thought that she could go back however working at [employer] she had worsening symptoms and was not able to continue. Patient states she has gotten a treadmill at home and continues to try out walking however this is limited due to her pain symptoms. Patient states that she is experiencing bowel and urinary incontinence over the last 5 months. She states this is not all the time it is just every so often however it is very frustrating. Patient states that she has not been to see a urologist however last year she did have a colonoscopy with no significant findings. Patient is currently taking gabapentin 800 mg 3 times a day and [place] 5 mg twice a day from her primary care's office. Patient denies any side effects from these medications however she states they do not provide significant improvement. Patient states she occasionally uses Aleve as well. Patient has tried heat and ice and lidocaine patches with no additional improvement. Patient states that when she went to physical therapy her pain symptoms were aggravated and worsened making it unbearable. Patient states the pain does affect her ability to perform activities of daily living. Patient cannot tolerate prolonged walking, standing due to the pain and even simple activities of mild cooking and cleaning are affected. Patient did have her previous back surgery done by Dr. Lowry out of [place] and states that she has not been to see him since completing her follow-up visits related to her surgery. Patient states that she did have multiple injections with Dr. Baca in the past. Her Agusto is [id number]. Its been reviewed and appropriate. CC: Meg Saldivar APRN [facility] Disclaimer: The information contained in this section may have been updated after the patient was seen, as this information can be updated by other users. Medical History Abnormal cardiovascular stress test Abnormal ECG Abnormal echocardiogram Anemia Asthma CAD (coronary artery disease) Cervical stenosis of spinal canal Depression HLD (hyperlipidemia) Hypertension Hypothyroidism (acquired) Knee pain, right Lumbar stenosis with neurogenic claudication Lumbar stenosis with neurogenic claudication Lumbar stenosis without neurogenic claudication Neuroforaminal stenosis of lumbar spine Unstable angina pectoris Social History (Updated 09/28/22 @ 13:44 by Fariba Mulligan RN) Smoking Status: Former smoker second hand exposure: Yes alcohol intake: never substance use type: denies use current occupational status: other Travel in the last 8 weeks: None household members: spouse and children housing: house current occupation: [employer] current occupational exposures/hazards: No caffeine: Yes Review of Systems Review of Systems Review of systems:: pertinent systems reviewed and negative unless documented below Review of systems (narrative): Review of Systems: General: No recent weight changes, no fever, no sleep disturbances Respiratory: No cough, no shortness of air
[2022-09-28 13:29] VITALS: BP 155/86; PULSE 120; RESP 18; O2SAT 97; BMI 31.6
== END ==
PROVIDERS: PCP Physician Assistant; Visit Provider Nurse Practitioner Family
DX: M51.16 Intervertebral disc disorders with radiculopathy, lumbar region (principal); M47.26 Other spondylosis with radiculopathy, lumbar region; M48.062 Spinal stenosis, lumbar region with neurogenic claudication; M25.561 Pain in right knee; M25.562 Pain in left knee
CPT/HCPCS: 99202; G0463

== ENCOUNTER → 2022-11-12 09:49 | Outpatient (CLI) | payer MEDICAID, SELFPAY ==
--- NOTE | 2022-11-12 10:08 | XR_ITS ---
FINAL REPORT CLINICAL HISTORY: neck pain, abn exam, dec sensation-- pt hearing impaired FINDINGS: SPINE CERVICAL COMPLETE/FLEXION & EXT Four views demonstrate no acute fracture. The disc spaces are well preserved. There is no evidence of instability with flexion and extension maneuvers. There is moderate facet sclerosis in the cervical spine. IMPRESSION: No acute process. Reviewed, Interpreted and Dictated by Orestes Galicia MD Transcribed by Jennifer Parkinson Authenticated and . [facility]
[2022-11-12 10:33] LABS: Basophils % 0.5 % (0.1-2.0); Eosinophils # 0.1 K/mm3 (0.0-0.4); Eosinophils % 1.9 % (0.1-12.0); Hematocrit 43.5 % (37.0-47.0); Hemoglobin 13.9 g/dL (12.2-16.2); Lymphocytes # 2.8 K/mm3 (0.7-4.5); Lymphocytes % 38.8 % (10-50); Mean Corpuscular HGB Conc 32.1 g/dL (31.8-35.4); Mean Corpuscular Hemoglobin 29.4 pg (27.0-31.2); Mean Corpuscular Volume 91.6 fl (81-99); Mean Platelet Volume 10.1 fl (7.4-10.4); Monocytes # 0.3 K/mm3 (0.1-1.0); Monocytes % 4.4 % (1.7-9.3); Neutrophils # 3.9 K/mm3 (1.8-7.8); Neutrophils % 54.3 % (37.0-80.0); Platelet Count 322 K/mm3 (142-424); Red Blood Count 4.75 M/mm3 (4.20-5.40); White Blood Count 7.3 K/mm3 (4.8-10.8)
[2022-11-12 11:21] LABS: Alanine Aminotransferase 13 U/L (12-78); Albumin Level 4.3 g/dl (3.5-5.0); Albumin/Globulin Ratio 1.7 (1.1-1.8); Alkaline Phosphatase 127 U/L (38-126); Aspartate Amino Transferase 22 U/L (14-36); Bilirubin,Total 0.6 mg/dl (0.2-1.3); Blood Urea Nitrogen 11 mg/dl (7-17); Calcium 9.1 mg/dl (8.4-10.2); Carbon Dioxide 28 mmol/L (22.0-30.0); Chloride 107 mmol/L (98-107); Estimated Glomerular Filt Rate 87 ml/min (>60); GFR (African American) 105 ML/MIN (>60); Globulin 2.6 g/dL (1.3-3.2); Glucose 81 mg/dl (74-100); Sodium 137 mmol/L (136-145); Total Protein,Serum 6.9 g/dl (6.3-8.2)
[2022-11-12 11:51] LABS: Thyroid Stimulating Hormone 0.07 uIU/mL (0.465-4.68)
[2022-11-12 12:30] LABS: Vitamin B12 > 1000 pg/mL (239-931)
== END ==
PROVIDERS: PCP Physician Assistant; Visit Provider Nurse Practitioner Family
DX: M54.2 Cervicalgia (principal); M54.50 Low back pain, unspecified; M47.816 Spondylosis without myelopathy or radiculopathy, lumbar region; M54.16 Radiculopathy, lumbar region; M99.83 Other biomechanical lesions of lumbar region; R20.0 Anesthesia of skin; R20.2 Paresthesia of skin; R15.2 Fecal urgency; R29.2 Abnormal reflex; R20.9 Unspecified disturbances of skin sensation
CPT/HCPCS: 36415; 72052; 80053; 82607; 82746; 84443; 85025

== ENCOUNTER → 2022-11-15 12:28 | Outpatient (CLI) | payer MEDICAID, SELFPAY ==
--- NOTE | 2022-11-15 12:28 | MR_ITS ---
FINAL REPORT TECHNIQUE: Multiplanar and multisequence imaging of the brain was obtained before and after contrast administration. CLINICAL HISTORY: pain, dec sensation, abn exam, worsening headaches. lightheadedness. FINDINGS: The gyri and sulci are within normal limits for age. There is no mass effect or midline shift. Signal intensity is normal. No hydrocephalus. The cerebellum and brainstem have a normal appearance. There is a partially empty sella. There are no areas of restricted diffusion on diffusion weighted images to suggest acute infarct. Soft tissues are without acute abnormality. No pathologic contrast enhancement is identified. IMPRESSION: No acute intracranial abnormality and no pathologic contrast enhancement. Reviewed, Interpreted and Dictated by Mony Esquivel MD Transcribed by Jennifer Parkinson Authenticated and [facility]
--- NOTE | 2022-11-15 12:28 | MR_ITS ---
FINAL REPORT TECHNIQUE: Multi plantar and multisequence imaging of the cervical spine was obtained before and after the administration of intravenous contrast. CLINICAL HISTORY: neck pain, dec sensation, abn exam. headache. left arm numbness. COMPARISON: 12/09/2015 FINDINGS: There is normal alignment of the cervical vertebral bodies. Vertebral body height is preserved. Bone marrow signal intensity is normal. There is no edema or pathologic marrow replacement. The signal intensity within the substance of the spinal cord is normal. There is no paraspinal mass or fluid collection. C2-C3: There is left facet osteoarthropathy causing mild left neural foraminal narrowing. C3-C4: There is an annular disc bulge with degenerative endplate change and bilateral facet osteoarthropathy. There is no central stenosis. There is mild right and severe left neural foraminal narrowing. C4-C5: There is an annular disc bulge with due to degenerative endplate change and facet osteoarthropathy. There is no central stenosis. There is mild right and severe left neural foraminal narrowing. C5-C6: There is an annular bulge with facet osteoarthropathy. There is no central stenosis. There is severe right and moderate left neural foraminal narrowing. C6-C7: There is an annular disc bulge with mild facet osteoarthropathy. There is no central stenosis or neural foraminal narrowing. C7-T1: There is no focal disc herniation, central stenosis or neural foraminal narrowing. Postcontrast images reveal no pathologic contrast enhancement. IMPRESSION: Multilevel degenerative disc disease as above. Reviewed, Interpreted and Dictated by Mony Esquivel MD Transcribed by Jennifer Parkinson Authenticated and [facility]
== END ==
PROVIDERS: PCP Physician Assistant; Visit Provider Nurse Practitioner Family
DX: R51.9 Headache, unspecified (principal); M47.816 Spondylosis without myelopathy or radiculopathy, lumbar region; M54.16 Radiculopathy, lumbar region; M54.2 Cervicalgia; M54.50 Low back pain, unspecified; M99.83 Other biomechanical lesions of lumbar region; R06.83 Snoring; G47.9 Sleep disorder, unspecified; R15.2 Fecal urgency; R20.0 Anesthesia of skin; R20.2 Paresthesia of skin; R20.9 Unspecified disturbances of skin sensation; R29.2 Abnormal reflex; R29.898 Other symptoms and signs involving the musculoskeletal system; R32 Unspecified urinary incontinence; Z68.31 Body mass index [BMI] 31.0-31.9, adult; Z98.1 Arthrodesis status; E66.9 Obesity, unspecified
CPT/HCPCS: 70553; 72156; 72158; 76376; A9576

== ENCOUNTER → 2023-02-03 07:44 | Outpatient (POV) | payer MEDICAID, MEDICARE, SELFPAY ==
--- NOTE | 2023-02-03 08:28 | EXP.PAIN.SOA ---
[facility] Pain Management SOAP Note Subjective:: Patient is a pleasant 57-year-old female who presents today for follow-up. We are currently treating the patient for degenerative disc disease of lumbar spine with lumbar radiculopathy symptoms, bilateral knee pain, right leg pain. Today she rates her pain a 6 out of 10. Patient denies any new trauma or injury. She does state that over the last couple of months she has been experiencing additional pain around her neck with radiating symptoms into her right arm. She does state it causes numbness into her fingers and is aggravated by certain movements such as bending, lifting and twisting motions. She does describe this as an aching, throbbing sensation that also brings about significant headache and migraines. She states she has recently been put on a new medication for headaches that goes on her tongue and dissolves. She states she has only been on this medication a day and has not noticed significant improvement at this time. She does state this pain does interfere with her ability to perform activities of daily living such as cooking and cleaning. She states frequently when she gets the migraine she does have to sit down and take a break due to significant pain related issues. She states she frequently will even have numbness under her right eye following these episodes. Patient has tried [id number] Tylenol and ibuprofen with no additional relief. She is also used heat and ice and multiple topicals with no improvement. She is scheduled to start her first physical therapy session later today. She is currently managed with [place] 5 mg twice a day, phentermine 37.5 mg daily and pregabalin 25 mg twice a day from her primary care doctor. Her Agusto is [id number]. Its been reviewed and appropriate. Review of Systems: General: No recent weight changes, no fever, no sleep disturbances Respiratory: No cough, no shortness of air, no recurring pulmonary infections Cardiovascular/peripheral vascular: No chest pain, no palpitations, no edema, no shortness of breath Gastrointestinal: No new onset incontinence, normal bowel movements reported Genitourinary: No new onset incontinence Musculoskeletal: Neck pain, right side arm pain, headaches Psychiatric: [Normal mood/affect] Neurological: [Denies weakness in extremities], [denies balance issues] Objective:: Physical Exam: General: Alert and oriented x3, no acute distress, pleasant and cooperative Lungs: Respirations even and unlabored, symmetrical chest expansion Eyes: PERRL Musculoskeletal: Flexion and extension of cervical [spine] somewhat guarded secondary to pain, [antalgic gait noted] positive Kemps test Neurological: Speech clear, no gross sensory deficit TECHNIQUE: Multi plantar and multisequence imaging of the cervical spine was obtained before and after the administration of intravenous contrast. CLINICAL HISTORY: neck pain, dec sensation, abn exam. headache. left arm numbness. COMPARISON: 12/09/2015 FINDINGS: There is normal alignment of the cervical vertebral bodies. Vertebral body height is preserved.? Bone marrow signal intensity is normal.? There is no edema or pathologic marrow replacement.? The signal intensity within the substance of the spinal cord is normal.? There is no paraspinal mass or fluid collection.? C2-C3:? There is left facet osteoarthropathy causing mild left neural foraminal narrowing.? C3-C4:? There is an annular disc bulge with degenerative endplate change and bilateral facet osteoarthropathy.? There is no central stenosis. There is mild right and severe left neural foraminal narrowing. C4-C5:? There is an annular disc bulge with due to degenerative endplate change and facet osteoarthropathy.? There is no central stenosis.? There is mild right and severe left neural foraminal narrowing.? C5-C6:? There is an annular bulge with facet osteoarthropathy.? There is no central stenosis.? There is severe right and moderate left neural
[2023-02-03 08:30] VITALS: BP 130/82; PULSE 89; RESP 18; O2SAT 97; BMI 29.9
== END ==
PROVIDERS: Visit Provider Nurse Practitioner Family
DX: M51.16 Intervertebral disc disorders with radiculopathy, lumbar region (principal); M50.122 Cervical disc disorder at C5-C6 level with radiculopathy; M47.22 Other spondylosis with radiculopathy, cervical region; M48.02 Spinal stenosis, cervical region; M25.561 Pain in right knee; M25.562 Pain in left knee
CPT/HCPCS: 99212; G0463

== ENCOUNTER 2023-02-03 15:56 | Outpatient (RCR) | payer MEDICAID, SELFPAY ==
--- NOTE | 2023-02-03 17:38 | HMH.PTOPEV ---
PT Outpatient Evaluation Rehab PT Outpatient Evaluation Start: 02/03/23 16:01 Freq: Status: Active Protocol: Document 02/03/23 16:01 TOMASA (Rec: 02/03/23 17:38 TOMASA [id number]) E-signed By Meg Jiménez PT Outpatient Therapy Subjective History Subjective History Pt is a 57 y/o female who reports insidious onset of neck pain and migraines 6 months ago. Pt reports whenever she performs cervical extension or lateral flexion she gets a severe migraine that wraps around her forehead . Pt states when she has a migraine she has numbness/ tingling of the right side of her face and her R arm to the ring and middle finger. Pt also reports the tip of her middle/ring finger and thumb will go blue. Pt reports nausea, light/noise sensitivity, light-headedness and dizziness with headaches. 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 Pt had a cervical spine flex/ext xray on 11/12/22 with impression of No acute process. Pt had a cervical MRI on 11/15/22 with the impression Multilevel degenerative disc disease. Pt also has a brain MRI on with the impression of No acute intracranial abnormality and no pathologic contrast enhancement. Pt reports she is scheduled to get injections in her neck on Tuesday. Pt denies known history of heart attack or stroke. Pt reports she also has throat pain and difficulty swallowing since onset of migraines and was referred to an ENT doctor although she has not set up an appointment. Pt reports neck pain/migraines are her main
== END 2023-02-03 15:59 | disposition home or self-care (01) ==
LOC: PT 15:56
PROVIDERS: PCP Physician Assistant; Visit Provider Nurse Practitioner Family
DX: M48.02 Spinal stenosis, cervical region (principal); G43.909 Migraine, unspecified, not intractable, without status migrainosus; R29.898 Other symptoms and signs involving the musculoskeletal system; M99.63 Osseous and subluxation stenosis of intervertebral foramina of lumbar region; M54.16 Radiculopathy, lumbar region; M47.816 Spondylosis without myelopathy or radiculopathy, lumbar region
CPT/HCPCS: 97163

== ENCOUNTER 2023-02-08 08:18 | Day surgery (SDC) | payer MEDICAID, SELFPAY ==
[2023-02-08 08:29] VITALS: BP 144/77; PULSE 83; RESP 18; TEMP 36.4; O2SAT 100; BMI 29.8
[2023-02-08 09:04] VITALS: BP 134/70; PULSE 64; RESP 18; O2SAT 100
--- NOTE | 2023-02-08 09:33 | P.PCN_ITS ---
Procedure Date: 02/08/23 Time: 08:50 Anesthesiologist:: Byron Tovar CRNA Complications:: None Pre-procedure Diagnosis:: Degenerative disc disease cervical spine multilevels. Cervical radiculopathy. Cervical spondylosis. Multilevel cervical facet arthropathy. Post-procedure Diagnosis:: Same. Indications for Procedure:: Very pleasant 57-year-old female that comes our clinic today for right C4-5, C5- 6 facet block. Patient complains of right side cervical pain into the right trapezius muscle. Procedure Details:: Informed consent was obtained and the risk and benefits of the procedure was explained to the patient. Patient was taken to the procedure room where noninvasive monitors were placed, including noninvasive blood pressure cuff as well as pulse oximeter. The area over the posterior cervical spine was cleansed using chlorhexidine as a cleansing solution. I anesthetized the skin and subcutaneous tissues with 1% Lidocaine. I placed 25 -gauge spinal needles into the right facet joint/ medial branches of C4-5, C5-6. Needle placement was confirmed with fluoroscopy. After confirmation of needle placement, each site was injected with 1 mL of 1% lidocaine and 0.25 % Marcaine and 10 mg of Depo- Medrol.. Patient tolerated the procedure without difficulty. There were no complications. Plan and Disposition:: Patient was discharged without incident
== END 2023-02-08 09:04 | disposition home or self-care (01) ==
LOC: SC.PAINP 08:19
PROVIDERS: PCP Physician Assistant; Visit Provider Nurse Anesthetist, Certified Registered
DX: M50.122 Cervical disc disorder at C5-C6 level with radiculopathy (principal); M47.892 Other spondylosis, cervical region
CPT/HCPCS: 64490; 64491; J1040; Q9966

== ENCOUNTER → 2023-02-09 19:46 | Outpatient (CLI) | payer MEDICAID, SELFPAY | PROVIDERS: PCP Physician Assistant; Visit Provider Nurse Practitioner Family | DX: G47.33 Obstructive sleep apnea (adult) (pediatric) (principal); R40.0 Somnolence; R06.83 Snoring; R51.9 Headache, unspecified | CPT/HCPCS: 95810 ==

== ENCOUNTER 2023-02-18 09:55 | Emergency (ER) | payer MEDICAID, SELFPAY ==
[2023-02-18] VITALS (8 sets, daily range): BP systolic 116–136; BP diastolic 63–78; PULSE 68–108; RESP 18–20; TEMP 36.7–37.2; O2SAT 98–100; BMI 29.8; BMI 29.7
--- NOTE | 2023-02-18 10:10 | EXP.UTC ---
Discharge Plan Disposition Patient Disposition: Still a Patient Condition: Fair Prescriptions Prescriptions: No Action ipratropium-albuterol 0.5 mg-3 mg(2.5 mg base)/3 mL solution for nebulization 3 ml inhalation QID PRN (Reason: shortness of breath or wheezing) Qty: 90 0RF ergocalciferol (vitamin D2) 1,250 mcg (50,000 unit) capsule 1,250 mcg PO WEEKLY Qty: 14 3RF phentermine [Adipex-P] 37.5 mg tablet 37.5 mg PO DAILY Qty: 30 0RF Rx Instructions: must administer 30 minutes before or 1-2 hours after breakfast hydrocodone-acetaminophen 5-325 mg tablet 1 tab PO BID PRN (Reason: pain) Qty: 60 0RF prednisone 20 mg tablet 20 mg PO BID 5 Days Qty: 10 0RF naproxen 500 mg tablet 500 mg PO BID Qty: 30 0RF metoprolol succinate 25 mg tablet extended release 24 hr See Rx Instructions .ROUTE .COMPLEX Qty: 90 0RF Rx Instructions: TAKE 1 TABLET BY MOUTH DAILY FOR BLOOD PRESSURE oxybutynin chloride 10 mg tablet extended release 24hr 10 mg PO DAILY Nurtec ODT 75 mg tablet,disintegrating 75 mg PO Q OTHER DAY Qty: 15 1RF pregabalin [Lyrica] 25 mg capsule 25 mg PO BID Qty: 60 0RF albuterol sulfate 90 mcg/actuation HFA aerosol inhaler 2 puff inhalation Q6HP PRN (Reason: shortness of breath or wheezing) Qty: 8.5 2RF levothyroxine 150 mcg tablet See Rx Instructions .ROUTE .COMPLEX Rx Instructions: TAKE 1 TABLET BY MOUTH DAILY atorvastatin 20 mg tablet 20 mg PO HS cholecalciferol (vitamin D3) 25 mcg (1,000 unit) capsule 25 mcg PO DAILY Referrals Follow up/Referrals: Tiffanie Esqueda PA [Primary Care Provider] - See instructions Clinical Impressions Clinical Impression: Breathing difficulty Discharge ED Provider: Reny Morrow [facility] [place] General Stated complaint: sob, hard to swallow Time Seen by Provider: 02/18/23 10:09 History of Present Illness Provider Complaint: She states that for the past several weeks she has had periods of trouble breathing. She states that it feels like she can't get air in or out. Related Data Home Medications Medication Instructions Recorded Confirmed atorvastatin 20 mg tablet 20 mg PO HS Cholesterol 09/28/22 02/10/23 cholecalciferol (vitamin D3) 25 25 mcg PO DAILY SUPPLIMENT 09/28/22 02/10/23 mcg (1,000 unit) capsule oxybutynin chloride 10 mg 10 mg PO DAILY bladder 01/19/23 02/10/23 tablet,extended release 24 hr levothyroxine 150 mcg tablet See Rx Instructions .Route 02/03/23 02/10/23 .COMPLEX THYROID Previous Rx's Medication Instructions Recorded albuterol sulfate 90 mcg/actuation 2 puff inhalation Q6HP PRN 12/21/21 aerosol inhaler shortness of breath or wheezing #8.5 grams metoprolol succinate 25 mg See Rx Instructions .Route 10/06/22 tablet,extended release 24 hr .COMPLEX BLOOD PRESSURE #90 tabs pregabalin 25 mg capsule (Lyrica) 25 mg PO BID neck pain #60 caps 12/20/22 rimegepant 75 mg disintegrating 75 mg PO Q OTHER DAY headache 12/20/22 tablet (Nurtec ODT) prevention #15 tabs ergocalciferol (vitamin D2) 1,250 1,250 mcg PO WEEKLY SUPPLIMENT #14 02/10/23 mcg (50,000 unit) capsule caps hydrocodone 5 mg-acetaminophen 325 1 tab PO BID PRN pain #60 tabs 02/10/23 mg tablet ipratropium 0.5 mg-albuterol 3 mg 3 ml inhalation QID PRN shortness 02/10/23 (2.5 mg base)/3 mL nebulization of breath or wheezing #90 mL soln naproxen 500 mg tablet 500 mg PO BID #30 tabs 02/10/23 phentermine 37.5 mg tablet 37.5 mg PO DAILY Weight loss #30 02/10/23 (Adipex-P) tabs prednisone 20 mg tablet 20 mg PO BID 5 days #10 tabs 02/10/23 Allergies Allergy/AdvReac Type Severity Reaction Status Date / Time No Known Drug Allergies Allergy Unknown Verified 02/10/23 15:44 [facility] Disclaimer: The information contained in this section may have been updated after the patient was seen, as this information can be updated by other users. Medical History (Reviewed 02/18/23 @ 10:59 by Jayce
[2023-02-18 10:28] LABS: UTC Strep Screen (Rapid) Negative (Negative)
--- NOTE | 2023-02-18 10:50 | PC.NURSE ---
Pt ambulated over to ED room 8 from [facility] by SHON Pagan. Pt was hooked to monitor, call light within reach. She reports no other needs at this time.
--- NOTE | 2023-02-18 10:50 | PC.NURSE ---
PATIENT SENT TO ER PER James PATEL APRN FOR FURTHER EVALUATION. REPORT GIVEN TO Jennifer KOVACS RN
--- NOTE | 2023-02-18 11:19 | PC.NURSE ---
pt given a pillow, call ness within reach, no other needs at this time
--- NOTE | 2023-02-18 11:52 | PC.NURSE ---
Rounded on patient; no needs at this time. She is playing a game on her cell phone. call ness within reach
--- NOTE | 2023-02-18 11:56 | PC.NURSE ---
PETER GUSMAN at for pt curtisal
--- NOTE | 2023-02-18 11:59 | CT_ITS ---
FINAL REPORT TECHNIQUE: Thin section axial CT images were obtained through the neck after intravenous contrast administration. Coronal and sagittal reformats were also obtained. This study was performed with techniques to keep radiation doses as low as reasonably achievable (ALARA). Individualized dose reduction techniques using automated exposure control or adjustment of mA and/or kV according to the patient''s size were employed. CLINICAL HISTORY: throat closing h/o thyroidectomy COMPARISON: None FINDINGS: The nasopharynx, oropharynx, hypopharynx and larynx are unremarkable. There is no mass or adenopathy. The thyroid gland is unremarkable. The visualized sinuses are clear. There is a chronic calcification left tonsillar pillar measuring 6 mm, likely postinflammatory. There are postoperative changes from thyroidectomy. IMPRESSION: No acute process. Reviewed, Interpreted and Dictated by Manish Lockhart III, MD Transcribed by Aixa Bradley Authenticated and [facility]
--- NOTE | 2023-02-18 12:13 | HMH.EDGENADL ---
Discharge Plan Disposition Patient Disposition: Home, Self-Care Condition: Fair Prescriptions Prescriptions: No Action ipratropium-albuterol 0.5 mg-3 mg(2.5 mg base)/3 mL solution for nebulization 3 ml inhalation QID PRN (Reason: shortness of breath or wheezing) Qty: 90 0RF ergocalciferol (vitamin D2) 1,250 mcg (50,000 unit) capsule 1,250 mcg PO WEEKLY Qty: 14 3RF phentermine [Adipex-P] 37.5 mg tablet 37.5 mg PO DAILY Qty: 30 0RF Rx Instructions: must administer 30 minutes before or 1-2 hours after breakfast hydrocodone-acetaminophen 5-325 mg tablet 1 tab PO BID PRN (Reason: pain) Qty: 60 0RF prednisone 20 mg tablet 20 mg PO BID 5 Days Qty: 10 0RF naproxen 500 mg tablet 500 mg PO BID Qty: 30 0RF metoprolol succinate 25 mg tablet extended release 24 hr See Rx Instructions .ROUTE .COMPLEX Qty: 90 0RF Rx Instructions: TAKE 1 TABLET BY MOUTH DAILY FOR BLOOD PRESSURE oxybutynin chloride 10 mg tablet extended release 24hr 10 mg PO DAILY Nurtec ODT 75 mg tablet,disintegrating 75 mg PO Q OTHER DAY Qty: 15 1RF pregabalin [Lyrica] 25 mg capsule 25 mg PO BID Qty: 60 0RF albuterol sulfate 90 mcg/actuation HFA aerosol inhaler 2 puff inhalation Q6HP PRN (Reason: shortness of breath or wheezing) Qty: 8.5 2RF levothyroxine 150 mcg tablet See Rx Instructions .ROUTE .COMPLEX Rx Instructions: TAKE 1 TABLET BY MOUTH DAILY atorvastatin 20 mg tablet 20 mg PO HS cholecalciferol (vitamin D3) 25 mcg (1,000 unit) capsule 25 mcg PO DAILY Referrals Follow up/Referrals: Tiffanie Esqueda PA [Primary Care Provider] - See instructions Sudha Carnes APRN [Nurse Practitioner] - See instructions Activity Restrictions/Add. Instructions Additional Instructions/Restrictions: 02/23/23 1:40pm ENT @ [facility] clinic Clinical Impressions Clinical Impression: Breathing difficulty Instructions Patient Instructions: DI for Skin Abscess Discharge ED Provider: Reny Morrow General Adult HPI General Chief complaint: Skin/Abscess/Foreign Body Stated complaint: sob, hard to swallow Time Seen by Provider: 02/18/23 10:09 Mode of Arrival: Ambulatory Source of Information: Patient Limitations: No Limitations Description of Symptoms (Recalled from ER Triage Doc. by RN): c/o feeling like something is stuck in her throat around by her thyroid incision. Thyroidectomy in 2018, pt is able to drink water but has a hard time eating solid food. History of Present Illness HPI narrative: Patient is a 58-year-old female with a history of thyroidectomy several years ago who has increasing complaints of difficulty with breathing in and states that she feels like her throat is closing up. She denies any significant difficulty with eating or drinking fluids at the moment. No respiratory distress from historical standpoint. She has not seen an ENT doctor or GI doctor for these particular symptoms. No fevers or chills. No masses from historical standpoint. Related Data Home Medications Medication Instructions Recorded Confirmed atorvastatin 20 mg tablet 20 mg PO HS Cholesterol 09/28/22 02/10/23 cholecalciferol (vitamin D3) 25 25 mcg PO DAILY SUPPLIMENT 09/28/22 02/10/23 mcg (1,000 unit) capsule oxybutynin chloride 10 mg 10 mg PO DAILY bladder 01/19/23 02/10/23 tablet,extended release 24 hr levothyroxine 150 mcg tablet See Rx Instructions .Route 02/03/23 02/10/23 .COMPLEX THYROID Previous Rx's Medication Instructions Recorded albuterol sulfate 90 mcg/actuation 2 puff inhalation Q6HP PRN 12/21/21 aerosol inhaler shortness of breath or wheezing #8.5 grams metoprolol succinate 25 mg See Rx Instructions .Route 10/06/22 tablet,extended release 24 hr .COMPLEX BLOOD PRESSURE #90 tabs pregabalin 25 mg capsule (Lyrica) 25 mg PO BID neck pain #60 caps 12/20/22 rimegepant 75 mg disintegrating 75 mg PO Q OTHER DAY headache 12/20/22 tablet (Nurtec ODT) pre
[2023-02-18 12:38] LABS: Basophils # 0.1 K/mm3 (0-0.2); Basophils % 0.7 % (0.1-2.0); Eosinophils # 0.2 K/mm3 (0.0-0.4); Hematocrit 47.6 % (37.0-47.0); Hemoglobin 15.7 g/dL (12.2-16.2); Lymphocytes # 2.8 K/mm3 (0.7-4.5); Lymphocytes % 31.4 % (10-50); Mean Corpuscular Hemoglobin 29.4 pg (27.0-31.2); Mean Corpuscular Volume 89.1 fl (81-99); Mean Platelet Volume 9.7 fl (7.4-10.4); Monocytes # 0.4 K/mm3 (0.1-1.0); Monocytes % 4.2 % (1.7-9.3); Neutrophils # 5.5 K/mm3 (1.8-7.8); Neutrophils % 61.7 % (37.0-80.0); Platelet Count 329 K/mm3 (142-424); Red Blood Count 5.34 M/mm3 (4.20-5.40); Red Cell Distribution Width 13.6 % (11.5-17.5); White Blood Count 8.9 K/mm3 (4.8-10.8)
[2023-02-18 12:43] LABS: Chloride 99 mmol/L (98-107); Sodium 140 mmol/L (136-145)
[2023-02-18 12:46] LABS: Alanine Aminotransferase 20 U/L (12-78); Albumin Level 4.6 g/dl (3.5-5.0); Albumin/Globulin Ratio 1.5 (1.1-1.8); Alkaline Phosphatase 145 U/L (38-126); Aspartate Amino Transferase 28 U/L (14-36); Blood Urea Nitrogen 13 mg/dl (7-17); Carbon Dioxide 30 mmol/L (22.0-30.0); Creatinine Clearance Estimated 91 mL/min (50-200); Estimated Glomerular Filt Rate 65 ml/min (>60); GFR (African American) 78 ML/MIN (>60); Globulin 3.1 g/dL (1.3-3.2); Glucose 94 mg/dl (74-100); Total Protein,Serum 7.7 g/dl (6.3-8.2)
--- NOTE | 2023-02-18 13:50 | PC.NURSE ---
called for appt for ENT February 22;
== END 2023-02-18 14:07 | disposition home or self-care (01) ==
LOC: UTC 09:58 → ER 10:42
PROVIDERS: Nurse Practitioner Family; Emergency Provider Student in an Organized Health Care Education/Training Program; PCP Physician Assistant
DX: R06.9 Unspecified abnormalities of breathing (principal); R13.10 Dysphagia, unspecified; E89.0 Postprocedural hypothyroidism
CPT/HCPCS: 70491; 80053; 85025; 87880; 96361; 96374; 99284; 99285; Q9967

== ENCOUNTER → 2023-02-23 08:23 | Outpatient (POV) | payer MEDICAID, SELFPAY ==
--- NOTE | 2023-02-23 08:55 | EXP.PAIN.SOA ---
[facility] Pain Management SOAP Note Subjective:: Patient is a pleasant 58-year-old female who presents today for follow-up of cervical medial branch block right side and C4-5 and C5-6. We are currently treating the patient for degenerative disc disease of cervical and lumbar spine with cervical and lumbar radiculopathy symptoms, bilateral knee pain, right leg pain, cervical facet arthropathy multilevel, cervical spondylosis. She states she had at least 50% improvement following this injection and feels like it is still continuing to help. She does state that she still continues to experience headaches on a daily basis. She does rate her pain today a 7 out of 10 and states her pain is all in her low back with radiating symptoms into her lower extremities. Patient describes this as an aching, throbbing sensation that is worse with increased activity. She does state it interferes with her ability to perform activities of daily living such as cooking and cleaning. Patient does state that she had been recently put on a new headache medication and feels that it may just not have had enough time to start working. Patient is currently managed with [place] 5 mg twice a day, phentermine 37.5 mg daily and pregabalin 25 mg twice a day from her primary care doctor. Her Agusto is [phone]. Its been reviewed and appropriate. Review of Systems: General: No recent weight changes, no fever, no sleep disturbances Respiratory: No cough, no shortness of air, no recurring pulmonary infections Cardiovascular/peripheral vascular: No chest pain, no palpitations, no edema, no shortness of breath Gastrointestinal: No new onset incontinence, normal bowel movements reported Genitourinary: No new onset incontinence Musculoskeletal: Low back pain, bilateral leg pain Psychiatric: [Normal mood/affect] Neurological: [Denies weakness in extremities], [denies balance issues] Objective:: Physical Exam: General: Alert and oriented x3, no acute distress, pleasant and cooperative Lungs: Respirations even and unlabored, symmetrical chest expansion Eyes: PERRL Musculoskeletal: Flexion and extension of lumbar [spine] somewhat guarded secondary to pain, [antalgic gait noted] Neurological: Speech clear, no gross sensory deficit Assessment:: Degenerative disc disease of cervical and lumbar spine with cervical and lumbar radiculopathy symptoms, bilateral knee pain, right leg pain, cervical facet arthropathy multilevel, cervical spondylosis Plan:: Patient is experiencing worsening pain in her low back with radiating symptoms into her lower extremities. I have discussed with the patient that she may benefit from lumbar epidural steroid injection. Risk and benefits were discussed with the patient and she would like to proceed forward with this plan of care. Patient is not on any blood thinners. Patient has tried and failed conservative therapy such as oral medications, heat and ice, topicals, at home stretching and exercise for longer than 6 weeks, physical therapy. Patient will be scheduled for a LESI L3-L4. Patient has been instructed to contact the clinic with any concerns before the next appointment. Dr. Baca has reviewed this note and agrees with this plan of care. This note was dictated using voice recognition software and make contain errors or omissions. [facility] Disclaimer: The information contained in this section may have been updated after the patient was seen, as this information can be updated by other users. Medical History Abnormal cardiovascular stress test Abnormal ECG Abnormal echocardiogram Anemia Asthma CAD (coronary artery disease) Cervical stenosis of spinal canal Depression HLD (hyperlipidemia) Hypertension Hypothyroidism (acquired) Knee pain, right Lumbar stenosis with neurogenic claudication Lumbar stenosis with neurogenic claudication Lumbar stenosis without neurogenic claudication Neuroforaminal stenosis of lumbar
[2023-02-23 09:15] VITALS: BP 139/82; PULSE 82; RESP 18; O2SAT 98; BMI 29.5
== END ==
PROVIDERS: PCP Physician Assistant; Visit Provider Nurse Practitioner Family
DX: M50.122 Cervical disc disorder at C5-C6 level with radiculopathy (principal); M51.16 Intervertebral disc disorders with radiculopathy, lumbar region; M25.561 Pain in right knee; M25.562 Pain in left knee; M79.604 Pain in right leg; M47.22 Other spondylosis with radiculopathy, cervical region
CPT/HCPCS: 99212; G0463

== ENCOUNTER 2023-03-08 07:46 | Day surgery (SDC) | payer MEDICAID, SELFPAY ==
[2023-03-08 08:12] VITALS: BP 139/69; PULSE 66; RESP 18; TEMP 36.3; O2SAT 100; BMI 30.3
[2023-03-08 08:28] VITALS: BP 145/76; PULSE 72; RESP 18; O2SAT 97
[2023-03-08 08:29] VITALS: BP 145/76; PULSE 72; RESP 18; O2SAT 97
[2023-03-08 08:34] VITALS: BP 125/69; PULSE 63; RESP 18; O2SAT 100
--- NOTE | 2023-03-08 08:34 | P.PCN_ITS ---
Procedure Date: 03/08/23 Time: 08:15 Anesthesiologist:: Byron Tovar CRNA Complications:: None Pre-procedure Diagnosis:: Degenerative disc lumbar spine multilevels. Lumbar radiculopathy. Lumbar postlaminectomy syndrome. Post-procedure Diagnosis:: Same. Indications for Procedure:: Very pleasant 58-year-old female that comes our clinic today for lumbar epidural steroid injections L3-4 level. Patient complains of low back pain as well as bilateral hip and leg radicular symptoms. She rates her pain 7/10. Procedure Details:: Informed consent was obtained and the risks and benefits of the procedure were explained to the patient. The patient was taken to the procedure room and noninvasive monitors placed, including noninvasive blood pressure cuff and pulse oximeter. The back was viewed using C-arm Fluoroscopy and prepped using Chlor aprep as a cleansing solution and the L3-4 interspace was palpated. Skin and subcutaneous tissues were anesthetized using lidocaine 1.5% and a 25-gauge needle. After this, an 18-gauge Touhy epidural needle was placed into the L3-4 interspace and advanced using fluoroscopic guidance and loss of resistance to air until the epidural space was encountered. After confirmation of needle placement in the epidural space, with dye, a solution containing normal saline, 3 mL and Depo-Medrol 80 mg were incrementally injected into the lumbar epidural space. The patient tolerated the procedure well with no complications. Plan and Disposition:: Patient was discharged without incident.
== END 2023-03-08 08:34 | disposition home or self-care (01) ==
PROVIDERS: PCP Physician Assistant; Visit Provider Nurse Anesthetist, Certified Registered
DX: M51.16 Intervertebral disc disorders with radiculopathy, lumbar region (principal); M96.1 Postlaminectomy syndrome, not elsewhere classified
CPT/HCPCS: 62323; J1040

== ENCOUNTER → 2023-03-23 08:38 | Outpatient (POV) | payer MEDICAID, SELFPAY ==
[2023-03-23 09:09] VITALS: BP 147/87; PULSE 98; RESP 18; O2SAT 97; BMI 29.2
--- NOTE | 2023-03-23 10:27 | EXP.PAIN.SOA ---
[facility] Pain Management SOAP Note Subjective:: Patient is a pleasant 58-year-old female who presents today for follow-up of lumbar epidural steroid injection at L3-L4 on 03/08/2023. We are currently treating the patient for degenerative disc disease of cervical and lumbar spine with cervical and lumbar radiculopathy symptoms, right knee pain, right leg pain, cervical facet arthropathy multilevel, cervical spondylosis. Today she states she had at least 65% improvement from this injection however it only lasted approximately 2 weeks. She states that she does get very good relief with the injections we have tried however all of them seem to only last average a month at a time. Patient is interested in something more long-term relief. Patient does state her pain is an aching, throbbing sensation that is worse with increased activity and does interfere with her ability perform activities of daily living. She does also state that she has been experiencing leg spasms and cramping that is worse at bedtime. Patient has tried [id number] Tylenol and ibuprofen along with heat and ice and topicals with no additional relief. Patient has had physical therapy in the past and continues to exercise and stretch on a daily basis for longer than 6 weeks with no additional relief. Patient is currently managed with [place] 5 mg twice a day and phentermine 37.5 mg daily from outside providers. Patient denies any side effects from these medications. Her Agusto is [phone]. Its been reviewed and appropriate. Review of Systems: General: No recent weight changes, no fever, no sleep disturbances Respiratory: No cough, no shortness of air, no recurring pulmonary infections Cardiovascular/peripheral vascular: No chest pain, no palpitations, no edema, no shortness of breath Gastrointestinal: No new onset incontinence, normal bowel movements reported Genitourinary: No new onset incontinence Musculoskeletal: Neck pain, low back pain, mid back pain Psychiatric: [Normal mood/affect] Neurological: [Denies weakness in extremities], [denies balance issues] Objective:: Physical Exam: General: Alert and oriented x3, no acute distress, pleasant and cooperative Lungs: Respirations even and unlabored, symmetrical chest expansion Eyes: PERRL Musculoskeletal: Flexion and extension of lumbar [spine] somewhat guarded secondary to pain, [antalgic gait noted] Neurological: Speech clear, no gross sensory deficit Assessment:: Degenerative disc disease of cervical and lumbar spine with cervical and lumbar radiculopathy symptoms, cervical facet arthropathy, cervical spondylosis, right knee pain, right leg pain Plan:: Patient continues to experience significant pain in her back with limited range of motion. I have discussed with the patient that she may benefit from a intrathecal pain pump trial in the future. Risk and benefits and educational handouts were given during today's visit. She would like to proceed forward with this plan of care. I will order psych eval today with the plan to proceed forward with a trial if she is deemed an appropriate candidate. I will also send in a prescription of ropinirole 0.25 mg at bedtime for her spasms and cramping in her left lower leg at night and provide a 1 month supply of this medication. Patient will follow-up in our office after her psych eval. Patient has been instructed to contact the clinic with any concerns before the next appointment. Dr. Baca has reviewed this note and agrees with this plan of care. This note was dictated using voice recognition software and make contain errors or omissions. [facility] Disclaimer: The information contained in this section may have been updated after the patient was seen, as this information can be updated by other users. Medical History (Updated 03/14/23 @ 14:53 by [facility]) Abnormal cardiovascular stress test Abnormal ECG Abnormal echocardiogram Anemia Asthma CAD (coronary artery disease) Cervical sten
== END | disposition home or self-care (01) ==
PROVIDERS: PCP Physician Assistant; Visit Provider Nurse Practitioner Family
DX: M50.10 Cervical disc disorder with radiculopathy, unspecified cervical region (principal); M51.16 Intervertebral disc disorders with radiculopathy, lumbar region; M25.561 Pain in right knee; M79.604 Pain in right leg; M47.22 Other spondylosis with radiculopathy, cervical region
CPT/HCPCS: 99212; G0463

== ENCOUNTER → 2023-08-02 08:21 | Outpatient (CLI) | payer SELFPAY ==
[2023-08-02 20:34] LABS: Thyroid Stimulating Hormone 0.04 uIU/mL (0.465-4.68)
== END ==
PROVIDERS: PCP Internal Medicine; Visit Provider Internal Medicine
DX: F32.0 Major depressive disorder, single episode, mild (principal)
CPT/HCPCS: 84443

== ENCOUNTER 2024-01-02 17:51 | Outpatient (CLI) | payer MEDICARE, SELFPAY ==
[2024-01-02 18:23] LABS: Basophils # 0.1 K/mm3 (0-0.2); Basophils % 0.8 % (0.1-2.0); Eosinophils # 0.1 K/mm3 (0.0-0.4); Eosinophils % 1.6 % (0.1-12.0); Hematocrit 44.4 % (37.0-47.0); Hemoglobin 13.9 g/dL (12.2-16.2); Lymphocytes # 2.6 K/mm3 (0.7-4.5); Lymphocytes % 31.8 % (10-50); Mean Corpuscular HGB Conc 31.4 g/dL (31.8-35.4); Mean Corpuscular Hemoglobin 28.7 pg (27.0-31.2); Mean Corpuscular Volume 91.5 fl (81-99); Mean Platelet Volume 11.6 fl (7.4-10.4); Monocytes # 0.4 K/mm3 (0.1-1.0); Monocytes % 4.8 % (1.7-9.3); Platelet Count 271 K/mm3 (142-424); Red Blood Count 4.85 M/mm3 (4.20-5.40); Red Cell Distribution Width 14.3 % (11.5-17.5); White Blood Count 8.2 K/mm3 (4.8-10.8)
[2024-01-02 18:50] LABS: Alanine Aminotransferase 18 U/L (12-78); Albumin Level 4.4 g/dl (3.5-5.0); Albumin/Globulin Ratio 1.6 (1.1-1.8); Alkaline Phosphatase 135 U/L (38-126); Anion Gap 12.7 mEq/L (5-15); Aspartate Amino Transferase 23 U/L (14-36); Bilirubin,Total 0.4 mg/dl (0.2-1.3); Blood Urea Nitrogen 24 mg/dl (7-17); Carbon Dioxide 24 mmol/L (22.0-30.0); Chloride 108 mmol/L (98-107); Chol/HDL Ratio 4.5 (1-3.5); Cholesterol 250 mg/dl (140-200); Estimated Glomerular Filt Rate 74 ml/min (>60); GFR (African American) 89 ML/MIN (>60); Globulin 2.7 g/dL (1.3-3.2); Glucose 91 mg/dl (74-100); HDL Cholesterol 55 mg/dl (40-60); Potassium 4.7 mmoL/L (3.5-5.1); Sodium 140 mmol/L (136-145); Total Protein,Serum 7.1 g/dl (6.3-8.2); Triglycerides 313 mg/dl (30-150); VLDL Cholesterol 63 mg/dL (0-40)
[2024-01-02 19:01] LABS: Direct LDL Cholesterol 132.59 mg/dL (100-129)
[2024-01-02 19:08] LABS: 25-OH Vitamin D, Total 22.7 ng/mL (30-100)
[2024-01-02 19:24] LABS: Thyroid Stimulating Hormone 0.07 uIU/mL (0.465-4.68)
== END 2024-01-02 23:59 ==
LOC: LAB.DROPOF 17:52
PROVIDERS: PCP Physician Assistant; Visit Provider Physician Assistant
DX: E55.9 Vitamin D deficiency, unspecified (principal); I10 Essential (primary) hypertension; E03.9 Hypothyroidism, unspecified; Z68.31 Body mass index [BMI] 31.0-31.9, adult
CPT/HCPCS: 80053; 80061; 82306; 84443; 85025

== ENCOUNTER 2024-01-18 10:37 | Outpatient (RCR) | payer MEDICARE, SELFPAY | END 2024-01-18 11:30 | disposition home or self-care (01) | LOC: OT 10:37 | PROVIDERS: Visit Provider Physician Assistant | DX: M25.532 Pain in left wrist (principal); M67.432 Ganglion, left wrist ==

== ENCOUNTER 2024-02-03 12:40 | Outpatient (CLI) | payer MEDICARE, SELFPAY ==
--- NOTE | 2024-02-03 12:40 | MR_ITS ---
FINAL REPORT TECHNIQUE: Multiplanar MR without contrast. CLINICAL HISTORY: LEFT WRIST CYST. PAIN ON RADIAL SIDE OF WRIST. COMPARISON: None FINDINGS: The osseous structures have an unremarkable appearance. Specifically no evidence of fracture or bone contusion is present. There is mild degenerative change present in the carpus. Carpal tunnel is unremarkable. The TFCC is intact. Visualized tendons are unremarkable. Major ligaments are intact. There is a small ganglion cyst along the volar aspect of the distal ulnar that measures 7 x 3 mm in size, best seen on sagittal images. There is also a cyst along the medial margin of the TFCC, which measures 5 mm in size. IMPRESSION: Small ganglion cyst along the volar aspect of the distal ulna as described. Mild degenerative changes of the carpus. Reviewed, Interpreted and Dictated by James Seo MD Transcribed by Theresa Bailon Authenticated and [facility]
== END 2024-02-03 23:59 | disposition home or self-care (01) ==
LOC: RAD 12:40
PROVIDERS: PCP Physician Assistant; Visit Provider Physician Assistant
DX: M25.532 Pain in left wrist (principal); M67.432 Ganglion, left wrist
CPT/HCPCS: 73221

== ENCOUNTER 2024-02-09 08:44 | Outpatient (CLI) | payer MEDICARE, SELFPAY ==
--- NOTE | 2024-02-09 08:48 | XR_ITS ---
FINAL REPORT CLINICAL HISTORY: lt wrist pain COMPARISON: None FINDINGS: LEFT WRIST Three views demonstrate no acute fracture or dislocation. There is mild degenerative change of the radial aspect of the wrist. The soft tissues are unremarkable. IMPRESSION: Mild degenerative change without acute bony abnormality. Reviewed, Interpreted and Dictated by Manish Lockhart III, MD Transcribed by Aixa Bradley Authenticated and [facility]
== END 2024-02-09 23:59 | disposition home or self-care (01) ==
LOC: LAB 08:46 → RAD 09:01
PROVIDERS: PCP Physician Assistant; Visit Provider Orthopaedic Surgery
DX: M25.532 Pain in left wrist; M67.432 Ganglion, left wrist
CPT/HCPCS: 73110

== ENCOUNTER 2024-02-11 08:53 | Emergency (ER) | payer MEDICARE, SELFPAY ==
[2024-02-11 08:54] VITALS: BP 149/89; PULSE 81; RESP 18; TEMP 36.7; O2SAT 99; BMI 34.0
--- NOTE | 2024-02-11 09:23 | ED_ITS ---
Discharge Plan Disposition Patient Disposition: Home, Self-Care Prescriptions Prescriptions: New valacyclovir [Valtrex] 1 gram tablet 1,000 mg PO Q8H 7 Days Qty: 21 0RF gabapentin 300 mg capsule 300 mg PO .qhs PRN (Reason: Neuropathic pain) 14 Days Qty: 14 0RF No Action ipratropium-albuterol 0.5 mg-3 mg(2.5 mg base)/3 mL solution for nebulization 3 ml inhalation QID PRN (Reason: shortness of breath or wheezing) Qty: 90 0RF albuterol sulfate 90 mcg/actuation HFA aerosol inhaler 2 puff inhalation Q6HP PRN (Reason: shortness of breath or wheezing) Qty: 8.5 2RF Nurtec ODT 75 mg tablet,disintegrating See Rx Instructions .ROUTE .COMPLEX Qty: 16 0RF Dose Instruction: DISSOLVE 1 TABLET ON THE TONGUE EVERY OTHER DAY FOR HEADACHE PREVENTION Rx Instructions: DISSOLVE 1 TABLET ON THE TONGUE EVERY OTHER DAY FOR HEADACHE PREVENTION metoprolol succinate 25 mg tablet extended release 24 hr See Rx Instructions .ROUTE .COMPLEX Qty: 90 0RF Rx Instructions: TAKE 1 TABLET BY MOUTH DAILY FOR BLOOD PRESSURE levothyroxine 125 mcg tablet 125 mcg PO DAILY Qty: 90 3RF atorvastatin 10 mg tablet 10 mg PO DAILY Qty: 90 3RF cholecalciferol (vitamin D3) 50 mcg (2,000 unit) capsule 50 mcg PO DAILY Qty: 90 3RF ergocalciferol (vitamin D2) 1,250 mcg (50,000 unit) capsule 1,250 mcg PO WEEKLY Qty: 14 3RF duloxetine [Cymbalta] 60 mg capsule,delayed release(DR/EC) 60 mg PO DAILY Qty: 30 2RF celecoxib 200 mg capsule See Rx Instructions .ROUTE .COMPLEX Qty: 90 0RF Dose Instruction: TAKE 1 CAPSULE BY MOUTH DAILY Rx Instructions: TAKE 1 CAPSULE BY MOUTH DAILY Referrals Follow up/Referrals: Tiffanie Esqueda PA [Primary Care Provider] - See instructions Activity Restrictions/Add. Instructions Additional Instructions/Restrictions: In the location of your back pain there is a herpes zoster/shingles rash which is likely the cause of your symptoms. Antiviral medications and neuropathic pain medications have been prescribed. Please follow the primary care doctor and return to the emergency room with any worsening symptoms. Clinical Impressions Clinical Impression: Herpes zoster Discharge ED Provider: Reny Morrow General Adult HPI General Chief complaint: PAIN Stated complaint: Pain in Middle left side of back going to shoulder Time Seen by Provider: 02/11/24 09:09 Mode of Arrival: Ambulatory Source of Information: Patient and Spouse Limitations: No Limitations Description of Symptoms (Recalled from ER Triage Doc. by RN): left back pain. blood in stool History of Present Illness HPI narrative: Patient is a 58-year-old female presents today with back pain. She told triage that there was potentially blood in her stool but there seems to be a significant language barrier as she is hard of hearing. When asked about this she stated that her back was bleeding on her stool. She did states she had dark stool but it was not black or having any blood in it. She states she has felt sharp pain in the left lateral flank of her thoracic region over the last several weeks. Related Data Previous Rx's Medication Instructions Recorded albuterol sulfate 90 mcg/actuation 2 puff inhalation Q6HP PRN 12/21/21 aerosol inhaler shortness of breath or wheezing #8.5 grams ipratropium 0.5 mg-albuterol 3 mg 3 ml inhalation QID PRN shortness 02/10/23 (2.5 mg base)/3 mL nebulization of breath or wheezing #90 mL soln rimegepant 75 mg disintegrating See Rx Instructions .Route 06/03/23 tablet (Nurtec ODT) .COMPLEX #16 tabs metoprolol succinate 25 mg See Rx Instructions .Route 10/27/23 tablet,extended release 24 hr .COMPLEX BLOOD PRESSURE #90 tabs atorvastatin 10 mg tablet 10 mg PO DAILY #90 tabs 01/03/24 cholecalciferol (vitamin D3) 50 50 mcg PO DAILY #90 caps 01/03/24 mcg (2,000 unit) capsule ergocalciferol (vitamin D2) 1,250 1,250 mcg PO WEEKLY #14 caps 01/03/24 mcg (50,000 unit) capsule levothyroxine 125 mcg tablet 125 mcg PO DAILY #90 tabs 01/03/24 celecoxib 200 mg capsule See Rx Instructions .Route 02/07/24 .COMPLEX #90 caps duloxetine 60 mg capsule,delayed 60 mg PO DAILY #30 caps 02/07/24 release (Cymbalta) gabapentin 300 mg capsule 300 mg PO .qhs PRN Neuropathic 02/11/24 pain 14 days #14 caps valacyclovir 1 gram tablet 1,000 mg PO Q8H 7 days #21 tabs 02/11/24 (Valtrex) Allergies Allergy/AdvReac Type Severity Reaction Status Date / Time No Known Drug Allergies Allergy Unknown Verified 02/09/24 09:54 [facility] Disclaimer: The information contained in this section may have been updated after the patient was seen, as this information can be updated by other users. Medical History Hearing loss Dysphonia Otalgia, left ear HLD (hyperlipidemia) CAD (coronary artery disease) Abnormal echocardiogram Abnormal cardiovascular stress test Unstable angina pectoris Asthma Abnormal ECG Hypertension BP Today 120/82, follow. Neuroforaminal stenosis of lumbar spine Depression Lumbar stenosis with neurogenic claudication Anemia Hypothyroidism (acquired) Patients TSH was 0.07 earlier this year. Her thyroxine has not been adjusted, so will decrease to 0.125. She is to RTC for a blood draw and TSH in about 4- 6 weeks. We may need to further decrease. Cervical stenosis of spinal canal Lumbar stenosis without neurogenic claudication Knee pain, right Lumbar stenosis with neurogenic claudication Surgical History History of section History of thyroidectomy History of cholecystectomy History of total hysterectomy History of hernia repair History of total right knee replacement History of lumbar fusion Family History Other Asthma Cancer Hypertension Social History Smoking Status: Never smoker second hand exposure: Yes alcohol intake: never substance use type: denies use current occupational status: other Travel in the last 8 weeks: None household members: spouse and children housing: house current occupation: [employer] and [employer] current occupational exposures/hazards: No caffeine: Yes ROS Obtained: Yes All systems reviewed & no additional complaints except as documented Physical Exam General General appearance: alert Respiratory Respiratory exam: Present normal lung sounds bilaterally Cardiovascular Cardiovascular exam: Present regular rate Back Exam Back 1 view image: 2 1. Vesicular rash with excoriation and evidence of recent bleeding Neurological Exam Neurological exam: Present alert and oriented X3 Medical Decision Making Agusto Inquiry Pt receiving controlled substance: No Vital Signs: 02/11/24 08:54 Temperature 98.1 F Temperature Source Oral Pulse Rate [Right] 81 Respiratory Rate 18 Blood Pressure [Right Arm] 149/89 H Blood Pressure Mean [Right Arm] 109 02 Sat by Pulse Oximetry 99 Oxygen Delivery Method Room Air Medical Decision Narrative: Well-appearing 58-year-old female presents today with sharp pain in her left back with a history of bleeding around the skin lesions. On physical exam she has vesicular rash consistent with herpes zoster/shingles. To the single dermatomal distribution she has shows no signs of disseminated disease. She likely has some postherpetic neuralgia as it seems to be on the healing side of the treatment. However we will still give antiviral medications. She has been prescribed valacyclovir as well as gabapentin for her neuropathic pain. Regarding her dark stool she denies having any melena or hematochezia she is hemodynamically stable not work this up further and I believe this is unrelated to her zoster rash. Patient was discharged in stable condition. Critical Care Critical Care Time Critical Care Time: No
[2024-02-11 09:30] VITALS: BP 153/83; PULSE 86; RESP 16; TEMP 36.7
== END 2024-02-11 09:30 | disposition home or self-care (01) ==
PROVIDERS: Emergency Provider Student in an Organized Health Care Education/Training Program; PCP Physician Assistant
DX: B02.9 Zoster without complications (principal); M54.6 Pain in thoracic spine
CPT/HCPCS: 99283

== ENCOUNTER 2024-02-20 05:57 | Day surgery (SDC) | payer MEDICARE, SELFPAY ==
[2024-02-17 11:41] VITALS: BMI 31.9
[2024-02-20] VITALS (10 sets, daily range): BP systolic 115–154; BP diastolic 68–89; PULSE 69–103; RESP 14–19; TEMP 36.2–37.1; O2SAT 93–99
[2024-02-20 06:52] LABS: MANUAL DIFFERENTIAL MANUAL DIFFERENTIAL (MANUAL DIFF)
[2024-02-20 07:15] LABS: Alanine Aminotransferase 22 U/L (12-78); Albumin Level 4.3 g/dl (3.5-5.0); Albumin/Globulin Ratio 1.7 (1.1-1.8); Alkaline Phosphatase 144 U/L (38-126); Anion Gap 14.4 mEq/L (5-15); Aspartate Amino Transferase 29 U/L (14-36); Bilirubin,Total 0.5 mg/dl (0.2-1.3); Blood Urea Nitrogen 18 mg/dl (7-17); Calcium 9.8 mg/dl (8.4-10.2); Carbon Dioxide 27 mmol/L (22.0-30.0); Chloride 105 mmol/L (98-107); Creatinine Clearance Estimated 102 mL/min (50-200); Estimated Glomerular Filt Rate 64 ml/min (>60); GFR (African American) 78 ML/MIN (>60); Globulin 2.6 g/dL (1.3-3.2); Glucose 108 mg/dl (74-100); Potassium 4.4 mmoL/L (3.5-5.1); Sodium 142 mmol/L (136-145); Total Protein,Serum 6.9 g/dl (6.3-8.2)
[2024-02-20 07:22] LABS: Basophils # 0.1 K/mm3 (0-0.2); Basophils % 0.8 % (0.1-2.0); Eosinophils # 0.2 K/mm3 (0.0-0.4); Eosinophils % 2.5 % (0.1-12.0); Hematocrit 42.4 % (37.0-47.0); Hemoglobin 13.7 g/dL (12.2-16.2); Lymphocytes # 3.2 K/mm3 (0.7-4.5); Lymphocytes % 39.6 % (10-50); Mean Corpuscular HGB Conc 32.4 g/dL (31.8-35.4); Mean Corpuscular Hemoglobin 28.4 pg (27.0-31.2); Mean Corpuscular Volume 87.7 fl (81-99); Mean Platelet Volume 10.1 fl (7.4-10.4); Monocytes # 0.3 K/mm3 (0.1-1.0); Monocytes % 4.1 % (1.7-9.3); Neutrophils # 4.3 K/mm3 (1.8-7.8); Platelet Count 266 K/mm3 (142-424); Red Blood Count 4.83 M/mm3 (4.20-5.40); Red Cell Distribution Width 15.4 % (11.5-17.5); White Blood Count 8.2 K/mm3 (4.8-10.8)
[2024-02-20] MEDS: CEFAZOLIN SODIUM 2 GM in 0.9 % SODIUM CHLORIDE 100 ML IV (07:58)
[2024-02-20] MEDS: LIDOCAINE 1% W/EPI 1:100,000 20ML VIAL 20 ML (07:58)
--- NOTE | 2024-02-20 07:58 | EXP.ANES.CKL ---
[facility] Disclaimer: The information contained in this section may have been updated after the patient was seen, as this information can be updated by other users. Medical History Hearing loss Dysphonia Otalgia, left ear HLD (hyperlipidemia) CAD (coronary artery disease) Abnormal echocardiogram Abnormal cardiovascular stress test Unstable angina pectoris Asthma Abnormal ECG Hypertension Neuroforaminal stenosis of lumbar spine Depression Lumbar stenosis with neurogenic claudication Anemia Hypothyroidism (acquired) Cervical stenosis of spinal canal Lumbar stenosis without neurogenic claudication Knee pain, right Lumbar stenosis with neurogenic claudication Surgical History History of bladder surgery History of section History of thyroidectomy History of cholecystectomy History of total hysterectomy History of hernia repair History of total right knee replacement History of lumbar fusion Family History Other Asthma Cancer Hypertension Social History Smoking Status: Former smoker second hand exposure: Yes alcohol intake: never substance use type: denies use current occupational status: other Travel in the last 8 weeks: None household members: spouse and children housing: house current occupation: [employer] current occupational exposures/hazards: No caffeine: Yes [facility] Anesthesia Checklist Patient Identification Patient Identification: Verbal (Name & ) Structural Data Admitted From: Home Planned Operative Procedure/s: l hand ganglion cyst Consent for Planned Operative Procedure(s) Verified: Yes NPO Status Verified Time NPO: 00:00 Additional verifications Anesthesia Reactions: No Hx Blood Transfusions: No Blood Transfusion Reaction: No Airway Assessment Mallampati Score:: Class II C-Spine Mobility Assessed: Yes TMJ Mobility Assessed: Yes Dentition: Good Dentition Neurological Assessment Level of Consciousness: Awake, Alert and Appropriate Anesthesia Plan Anesthesia Risk discussed: Yes Anesthesia Plan: Verified ASA Class: II Anesthesia Type: General
--- NOTE | 2024-02-20 08:19 | P.PNANES_ITS ---
[facility] Anesthesia Record Part I Anesthesia Record I Intake, IV Amount: 1,400 Hydration: Adequate Estimated blood loss (mL): 0 Urine output (mL): 0 Blood Pressure: 119/68 SaO2: 96 Pulse Rate: 103 Airway Patency: Patent Respiratory Rate: 14 Temperature: 97.1 F Patient is:: Awake and Stable Stable to PACU at:: 08:15
--- NOTE | 2024-02-20 08:27 | P.OP_ITS ---
Date of procedure: 02/20/24 Pre-op Diagnosis:: Left wrist ganglion cyst first dorsal compartment Post-op Diagnosis:: Same Procedure performed:: Excision ganglion cyst first dorsal compartment Surgeon:: Calvin Saldivar DO REGULATORY COMPLIANCE ENGINEER:: Valente Shah Anesthesia: LMA Estimated blood loss (mL): 0 Operative findings:: Ganglion cyst Operative note:: Patient identified preoperatively left wrist marked with yes my initials. Taken the operating room placed upon the operating bed. General anesthesia ministered airway secured. Left upper extremity prepped and draped in normal sterile fashion. Once prepped and draped final operative timeout performed to identify proper patient procedure and extremity. Everyone involved the case agreed. No counter indications to beginning. Did receive preoperative antibiotics. Marking pen used to make plan incision over the first dorsal compartment left wrist. Local anesthesia infiltrated to the skin. Skin knife is used to incise the skin. Ragnell retractors were placed. Careful dissection was taken down to identify the cyst on the first dorsal compartment. It was consistent with a ganglion cyst careful meticulous dissection was taken down to the base and the cyst was excised. It was full of gelatinous ganglion cyst material. Bipolar cautery was used to cauterize the base of the ganglion cyst. Irrigation was performed. Skin was closed with 4-0 nylon stitch. Sterile hand dressing placed. Patient waken taken recovery in stable condition. Condition: stable Disposition: PACU Complications:: None apparent
[2024-02-20 08:40] LABS: Eosinophils % 1 % (0-3); Lymphocytes % 48 % (10-50); Monocytes % 2 % (2-9); Neutrophils % 49 % (42-76); Platelet Estimate Normal; RBC Morphology Normal; Total Cells Counted 100
[2024-02-21 07:29] VITALS: BP 142/78; PULSE 84; RESP 19; TEMP 36.6; O2SAT 95
--- NOTE | 2024-02-21 07:29 | EXP.ANES.II ---
[facility] Anesthesia Record Part II Anesthesia Record Part II Discharge Time: 08:45 Destination: Surgical Day Care (OP Surgery) PACU nurse assessment reviewed?: Yes Patient Condition:: Good Anesthesia Complications:: None Swallowing reflex intact?: Yes Airway Patency: Patent Cyanosis?: No Blood Pressure: 142/78 SaO2: 95 Respiratory Rate: 19 Pulse Rate: 84 Temperature: 97.8 F Mental Status: Alert & Oriented Pain level:: 0 Nausea and/or vomitting:: None Intake, IV Amount: 0 Hydration: Adequate
== END 2024-02-20 09:25 | disposition home or self-care (01) ==
PROVIDERS: PCP Physician Assistant; Visit Provider Orthopaedic Surgery
PROC: (CPT 25111; principal; 2024-02-20 07:30)
DX: M67.432 Ganglion, left wrist (principal); M25.532 Pain in left wrist; Z79.899 Other long term (current) drug therapy; I10 Essential (primary) hypertension
CPT/HCPCS: 25111; 80053; 85007; 85014; 85018; 85048; 85049; 96374; J2405

== ENCOUNTER 2024-03-19 14:16 | Emergency (ER) | payer MEDICARE, SELFPAY ==
[2024-03-19 14:18] VITALS: BP 147/80; PULSE 87; RESP 13; TEMP 36.6; O2SAT 98; BMI 34.8
--- NOTE | 2024-03-19 14:21 | PC.NURSE ---
pt given a warm blanket, call ness within reach
--- NOTE | 2024-03-19 14:28 | XR_ITS ---
FINAL REPORT CLINICAL HISTORY: fall, left wrist pain COMPARISON: None FINDINGS: LEFT WRIST Three views show no evidence of an acute, displaced fracture or dislocation of the visualized bony architecture. The joint spaces appear normal. IMPRESSION: Unremarkable exam. Reviewed, Interpreted and Dictated by James Seo MD Transcribed by Aixa Bradley Authenticated and [facility]
--- NOTE | 2024-03-19 14:40 | ED_ITS ---
Discharge Plan Disposition Patient Disposition: Home, Self-Care Condition: Good Prescriptions Prescriptions: No Action ipratropium-albuterol 0.5 mg-3 mg(2.5 mg base)/3 mL solution for nebulization 3 ml inhalation QID PRN (Reason: shortness of breath or wheezing) Qty: 90 0RF gabapentin 300 mg capsule 300 mg PO BID PRN (Reason: Neuropathic pain) Qty: 60 2RF metoprolol succinate 25 mg tablet extended release 24 hr See Rx Instructions .ROUTE .COMPLEX Qty: 90 0RF Rx Instructions: TAKE 1 TABLET BY MOUTH DAILY FOR BLOOD PRESSURE naltrexone 50 mg tablet 50 mg PO DAILY Qty: 30 2RF bupropion HCl 150 mg tablet extended release 24 hr 150 mg PO DAILY Qty: 30 2RF albuterol sulfate 90 mcg/actuation HFA aerosol inhaler 2 puff inhalation Q6HP PRN (Reason: shortness of breath or wheezing) Qty: 8.5 2RF Nurtec ODT 75 mg tablet,disintegrating See Rx Instructions .ROUTE .COMPLEX Qty: 16 0RF Dose Instruction: DISSOLVE 1 TABLET ON THE TONGUE EVERY OTHER DAY FOR HEADACHE PREVENTION Rx Instructions: DISSOLVE 1 TABLET ON THE TONGUE EVERY OTHER DAY FOR HEADACHE PREVENTION levothyroxine 125 mcg tablet 125 mcg PO DAILY Qty: 90 3RF atorvastatin 10 mg tablet 10 mg PO DAILY Qty: 90 3RF cholecalciferol (vitamin D3) 50 mcg (2,000 unit) capsule 50 mcg PO DAILY Qty: 90 3RF ergocalciferol (vitamin D2) 1,250 mcg (50,000 unit) capsule 1,250 mcg PO WEEKLY Qty: 14 3RF duloxetine [Cymbalta] 60 mg capsule,delayed release(DR/EC) 60 mg PO DAILY Qty: 30 2RF celecoxib 200 mg capsule See Rx Instructions .ROUTE .COMPLEX Qty: 90 0RF Dose Instruction: TAKE 1 CAPSULE BY MOUTH DAILY Rx Instructions: TAKE 1 CAPSULE BY MOUTH DAILY Referrals Follow up/Referrals: Tiffanie Esqueda PA [Primary Care Provider] - See instructions Calvin Saldivar DO [Staff Physician] - See instructions Activity Restrictions/Add. Instructions Additional Instructions/Restrictions: Please continue to take Tylenol alternating with Motrin every 4 hours as needed for symptomatic pain. I have referred you to Dr. Saldivar for follow-up. Return to ER for any worsening signs or symptoms as needed. Clinical Impressions Clinical Impression: Left wrist sprain Qualifiers: Encounter type: initial encounter Qualified Code(s): S63.502A - Unspecified sprain of left wrist, initial encounter Contusion of hand, left Qualifiers: Encounter type: initial encounter Qualified Code(s): S60.222A - Contusion of left hand, initial encounter Instructions Patient Instructions: DI for Wrist Sprain Discharge ED Provider: Diaz Agrawal General Adult HPI <SUE Rodríguez - Last Filed: 03/19/24 16:05> General Chief complaint: PAIN Stated complaint: A0 03/18 fall left wrist pain lack of movement Time Seen by Provider: 03/19/24 14:24 Mode of Arrival: Ambulatory Source of Information: Patient Limitations: No Limitations Description of Symptoms (Recalled from ER Triage Doc. by RN): pt reports to ED with c/o left wrist pain. pt reports that she had a fall last night and landed with her hands in front of her. her left wrist pain ongoing since fall last night History of Present Illness HPI narrative: Patient presents for a left wrist injury yesterday. Patient reports that she fell with her arms landing outstretched however she suffered pain to the left wrist and thumb. She also reports that her fingers are all tingling from the wrist down. She has no loss of motor and has intact 2 point discrimination. Related Data Previous Rx's Medication Instructions Recorded albuterol sulfate 90 mcg/actuation 2 puff inhalation Q6HP PRN 12/21/21 aerosol inhaler shortness of breath or wheezing #8.5 grams ipratropium 0.5 mg-albuterol 3 mg 3 ml inhalation QID PRN shortness 02/10/23 (2.5 mg base)/3 mL nebulization of breath or wheezing #90 mL soln rimegepant 75 mg disintegrating See Rx Instructions .Route 06/03/23 tablet (Nurtec ODT) .COMPLEX #16 tabs atorvastatin 10 mg tablet 10 mg PO DAILY #90 tabs 01/03/24 cholecalciferol (vitamin D3) 50 50 mcg PO DAILY #90 caps 01/03/24 mcg (2,000 unit) capsule ergocalciferol (vitamin D2) 1,250 1,250 mcg PO WEEKLY #14 caps 01/03/24 mcg (50,000 unit) capsule levothyroxine 125 mcg tablet 125 mcg PO DAILY #90 tabs 01/03/24 celecoxib 200 mg capsule See Rx Instructions .Route 02/07/24 .COMPLEX #90 caps duloxetine 60 mg capsule,delayed 60 mg PO DAILY #30 caps 02/07/24 release (Cymbalta) bupropion HCl 150 mg 24 hr tablet, 150 mg PO DAILY #30 tabs 02/28/24 extended release gabapentin 300 mg capsule 300 mg PO BID PRN Neuropathic pain 02/28/24 #60 caps metoprolol succinate 25 mg See Rx Instructions .Route 02/28/24 tablet,extended release 24 hr .COMPLEX BLOOD PRESSURE #90 tabs naltrexone 50 mg tablet 50 mg PO DAILY #30 tabs 02/28/24 Allergies Allergy/AdvReac Type Severity Reaction Status Date / Time No Known Drug Allergies Allergy Unknown Verified 03/06/24 09:54 [facility] <SUE Rodríguez - Last Filed: 03/19/24 16:05> [facility] Disclaimer: The information contained in this section may have been updated after the patient was seen, as this information can be updated by other users. Medical History Hearing loss Dysphonia Otalgia, left ear HLD (hyperlipidemia) CAD (coronary artery disease) Abnormal echocardiogram Abnormal cardiovascular stress test Unstable angina pectoris Asthma Abnormal ECG Hypertension Neuroforaminal stenosis of lumbar spine Depression Lumbar stenosis with neurogenic claudication Anemia Hypothyroidism (acquired) Patients TSH was 0.07 earlier this year. Her thyroxine has not been adjusted, so will decrease to 0.125. She is to RTC for a blood draw and TSH in about 4- 6 weeks. We may need to further decrease. Cervical stenosis of spinal canal Lumbar stenosis without neurogenic claudication Knee pain, right Lumbar stenosis with neurogenic claudication Surgical History History of bladder surgery History of section History of thyroidectomy History of cholecystectomy History of total hysterectomy History of hernia repair History of total right knee replacement History of lumbar fusion Family History Other Asthma Cancer Hypertension Social History Smoking Status: Never smoker second hand exposure: Yes alcohol intake: never substance use type: denies use current occupational status: other Travel in the last 8 weeks: None household members: spouse and children housing: house current occupation: [employer] current occupational exposures/hazards: No caffeine: Yes <SUE Rodríguez - Last Filed: 03/19/24 16:05> ROS Obtained: Yes Systems reviewed as appropriate & no additional complaints except as documented Physical Exam <SUE Rodríguez - Last Filed: 03/19/24 16:05> General General appearance: alert and in no apparent distress Respiratory Respiratory exam: Present normal lung sounds bilaterally Cardiovascular Cardiovascular exam: Present regular rate and normal rhythm Expanded Upper Extremity Exam Left: Elbow exam: Present normal inspection and full ROM Forearm/Wrist exam: Present normal inspection, full ROM, tenderness, ecchymosis and tenderness over anatomical snuff box; Absent deformity Hand exam: Present full ROM, tenderness, swelling and ecchymosis; Absent normal inspection Hand L/R front image: 2 1. other (Ecchymosis) 2. other (Tenderness) Hand L/R back image: 2 1. Tenderness Neurological Exam Neurological exam: Present alert and oriented X3 Medical Decision Making <SUE Rodríguez - Last Filed: 03/19/24 16:05> Medical Records Medical records reviewed: Yes I reviewed the patient's medical records. Agusto Inquiry Pt receiving controlled substance: No Vital Signs: 03/19/24 14:18 03/19/24 15:11 03/19/24 16:30 Temperature 97.9 F 97.9 F Temperature Source Oral Oral Pulse Rate 92 H 72 Pulse Rate [Left Radial] 87 Respiratory Rate 13 18 Blood Pressure 141/74 H 123/66 Blood Pressure [Right Arm] 147/80 H Blood Pressure Mean [Right Arm] 102 Blood Pressure Source Automatic Cuff Blood Pressure Position Sitting 02 Sat by Pulse Oximetry 98 98 Oxygen Delivery Method Room Air Room Air Orders (Tests/Meds): ED MEDICATIONS Discontinued Medications Generic Name Dose Route Start Last Admin Trade Name Freq PRN Reason Stop Dose Admin Acetaminophen 1,000 mg 03/19/24 14:47 03/19/24 14:55 Acetaminophen 500mg Tab PO 03/19/24 14:48 1,000 mg ONCE ONE Administration Ibuprofen 800 mg 03/19/24 14:47 03/19/24 14:55 Ibuprofen 400 Mg Tablet PO 03/19/24 14:48 800 mg ONCE ONE Administration ORDERS Category Date Time Status Hand XR left minimum 3 views [XR hand LT min 3V] Stat Exams 03/19/24 14:46 Completed Wrist XR left minimum 3 views [XR wrist LT min 3V] Stat Exams 03/19/24 14:28 Completed XR forearm LT 2V Stat Exams 03/19/24 14:46 Completed Medical Decision Narrative: In summary patient is a 59-year-old female who presents to the emergency department for evaluation of left hand and wrist injury. Patient is hemodynamically stable upon arrival, afebrile. Physical exam is remarkable for tenderness to palpation across the wrist and thenar eminence of the thumb as well as the anatomical snuffbox without any palpable deformity. Patient has full range of motion and has normal opposition. She has normal 2 point discrimination.. Differential diagnosis includes fracture versus sprain versus nerve injury. Initial workup will be conducted with plain film x-rays. Initial interventions include Tylenol and Motrin. Initial workup reviewed by me and my informal interpretation of her plain film x-ray shows no acute fracture prior to radiology read and radiology read confirmed. Upon repeat evaluation patient reported some decrease in her pain after initial intervention. Given this patient is appropriate for discharge with a wrist brace and referral to Dr. Saldivar for follow-up. <Diaz Agrawal MD - Last Filed: 03/19/24 19:13> Vital Signs: 03/19/24 14:18 03/19/24 15:11 03/19/24 16:30 Temperature 97.9 F 97.9 F Temperature Source Oral Oral Pulse Rate 92 H 72 Pulse Rate [Left Radial] 87 Respiratory Rate 13 18 Blood Pressure 141/74 H 123/66 Blood Pressure [Right Arm] 147/80 H Blood Pressure Mean [Right Arm] 102 Blood Pressure Source Automatic Cuff Blood Pressure Position Sitting 02 Sat by Pulse Oximetry 98 98 Oxygen Delivery Method Room Air Room Air Orders (Tests/Meds): ED MEDICATIONS Discontinued Medications Generic Name Dose Route Start Last Admin Trade Name Freq PRN Reason Stop Dose Admin Acetaminophen 1,000 mg 03/19/24 14:47 03/19/24 14:55 Acetaminophen 500mg Tab PO 03/19/24 14:48 1,000 mg ONCE ONE Administration Ibuprofen 800 mg 03/19/24 14:47 03/19/24 14:55 Ibuprofen 400 Mg Tablet PO 03/19/24 14:48 800 mg ONCE ONE Administration ORDERS Category Date Time Status Hand XR left minimum 3 views [XR hand LT min 3V] Stat Exams 03/19/24 14:46 Completed Wrist XR left minimum 3 views [XR wrist LT min 3V] Stat Exams 03/19/24 14:28 Completed XR forearm LT 2V Stat Exams 03/19/24 14:46 Completed Medical Decision Narrative: In summary patient is a 59-year-old female who presents to the emergency department for evaluation of left hand and wrist injury. Patient is hemodynamically stable upon arrival, afebrile. Physical exam is remarkable for tenderness to palpation across the wrist and thenar eminence of the thumb as well as the anatomical snuffbox without any palpable deformity. Patient has full range of motion and has normal opposition. She has normal 2 point discrimination.. Differential diagnosis includes fracture versus sprain versus nerve injury. Initial workup will be conducted with plain film x-rays. Initial interventions include Tylenol and Motrin. Initial workup reviewed by me and my informal interpretation of her plain film x-ray shows no acute fracture prior to radiology read and radiology read confirmed. Upon repeat evaluation patient reported some decrease in her pain after initial intervention. Given this patient is appropriate for discharge with a wrist brace and referral to Dr. Saldivar for follow-up. I was consulted by the GISELE, and we discussed the complexity of the problems being addressed. I approved the treatment and management plan for this patient?s care in the Emergency Department, thus performing a substantive portion of the medical decision making. Diaz Agrawal MD Critical Care <SUE Rodríguez - Last Filed: 03/19/24 16:05> Critical Care Time Critical Care Time: No
--- NOTE | 2024-03-19 14:46 | XR_ITS ---
FINAL REPORT CLINICAL HISTORY: Fall, left forearm pain COMPARISON: None FINDINGS: 2 views of the left forearm were obtained. There is no acute fracture or dislocation. The joints are intact. There are no soft tissue abnormalities. IMPRESSION: No acute process. Reviewed, Interpreted and Dictated by James Seo MD Transcribed by Aixa Bradley Authenticated and . [facility]
--- NOTE | 2024-03-19 14:46 | XR_ITS ---
FINAL REPORT CLINICAL HISTORY: Fall, left hand pain COMPARISON: None FINDINGS: Three views of the left hand show no evidence of acute displaced fracture or dislocation of the visualized bony architecture. There are moderate degenerative changes of the DIP and PIP joints. IMPRESSION: No acute process. Reviewed, Interpreted and Dictated by James Seo MD Transcribed by Aixa Bradley Authenticated and [facility]
[2024-03-19] MEDS: ACETAMINOPHEN 500MG TAB 1000 MG PO (14:55)
[2024-03-19] MEDS: IBUPROFEN 400 MG TABLET 800 MG PO (14:55)
--- NOTE | 2024-03-19 15:04 | PC.NURSE ---
pt ambulatory to radiology
[2024-03-19 15:11] VITALS: BP 141/74; PULSE 92; O2SAT 98
[2024-03-19 16:30] VITALS: BP 123/66; PULSE 72; RESP 18; TEMP 36.6; O2SAT 98
== END 2024-03-19 16:30 | disposition home or self-care (01) ==
PROVIDERS: Emergency Provider Emergency Medicine; PCP Physician Assistant
DX: S63.502A Unspecified sprain of left wrist, initial encounter (principal); S60.222A Contusion of left hand, initial encounter; M25.532 Pain in left wrist; R20.2 Paresthesia of skin; W18.30XA Fall on same level, unspecified, initial encounter
CPT/HCPCS: 73090; 73110; 73130; 99283

== ENCOUNTER 2024-05-02 09:17 | Outpatient (POV) | payer MEDICARE, SELFPAY ==
--- NOTE | 2024-05-02 10:19 | A.OFFVIS_ITS ---
[facility] Disclaimer: The information contained in this section may have been updated after the patient was seen, as this information can be updated by other users. Medical History Hearing loss Dysphonia Otalgia, left ear HLD (hyperlipidemia) CAD (coronary artery disease) Abnormal echocardiogram Abnormal cardiovascular stress test Unstable angina pectoris Asthma Abnormal ECG Hypertension Neuroforaminal stenosis of lumbar spine Depression Lumbar stenosis with neurogenic claudication Anemia Hypothyroidism (acquired) Patients TSH was 0.07 earlier this year. Her thyroxine has not been adjusted, so will decrease to 0.125. She is to RTC for a blood draw and TSH in about 4- 6 weeks. We may need to further decrease. Cervical stenosis of spinal canal Lumbar stenosis without neurogenic claudication Knee pain, right Lumbar stenosis with neurogenic claudication Surgical History History of bladder surgery History of section History of thyroidectomy History of cholecystectomy History of total hysterectomy History of hernia repair History of total right knee replacement History of lumbar fusion Family History Other Asthma Cancer Hypertension Social History Smoking Status: Never smoker second hand exposure: Yes alcohol intake: never substance use type: denies use current occupational status: other Travel in the last 8 weeks: None household members: spouse and children housing: house current occupation: [employer] current occupational exposures/hazards: No caffeine: Yes PM Subjective & Objective Subjective Subjective:: Patient is a pleasant 59-year-old female who presents today for follow-up. Chris tripp she rates her pain a 6 out of 10. Patient denies any new trauma or injury from her last visit with us. She does state that she was unable to come back to our office for a little bit of time because she lost her insurance however she does have this back nail. Previously we were treating the patient for both neck and low back issues and she did have a previous lumbar epidural back in March that did provide 65% relief. She does state today most of her pain is in her neck and low back with symptoms going down her right leg. Patient does state that the leg and low back symptoms are worse than her neck and that she would like us to see about getting improvement on this. Patient was also previously sent for psychological evaluation last year and was deemed an appropriate candidate for the pain pump trial and does state that she still would like to proceed forward with this option at a later date. Patient does state her pain throughout her neck and low back continue to interfere with her ability to perform activities of daily living such as cooking and cleaning. Patient has continued at home conservative treatment including Tylenol and ibuprofen along with heat and ice and topicals with no changes. Patient is still prescribed gabapentin 300 mg from her PCP. Her Agusto has been reviewed and is appropriate. Review of Systems: General: No recent weight changes, no fever, no sleep disturbances Respiratory: No cough, no shortness of air, no recurring pulmonary infections Cardiovascular/peripheral vascular: No chest pain, no palpitations, no edema, no shortness of breath Gastrointestinal: No new onset incontinence, normal bowel movements reported Genitourinary: No new onset incontinence Musculoskeletal: Low back pain, left leg pain Psychiatric: [Normal mood/affect] Neurological: [Denies weakness in extremities], [denies balance issues] Pain at rest (0-10 scale): 6 Objective Objective:: Physical Exam: General: Alert and oriented x3, no acute distress, pleasant and cooperative Lungs: Respirations even and unlabored, symmetrical chest expansion Eyes: PERRL Musculoskeletal: Flexion and extension of lumbar [spine] somewhat guarded secondary to pain, [antalgic gait noted] Neurological: Speech clear, no gross sensory deficit Has patient had previous pain injection?: No Conservative treatment options previously tried: Home exercise plan Length of treatment: Longer than 6 weeks and Prescription medications Length of treatment: Longer than 6 weeks Meds Home Medications and Allergies Home Medications ?Medication ?Instructions ?Recorded ?Confirmed ?Type albuterol sulfate 90 mcg/actuation 2 puff inhalation Q6HP PRN 12/21/21 03/06/24 Rx aerosol inhaler shortness of breath or wheezing #8.5 grams ipratropium 0.5 mg-albuterol 3 mg 3 ml inhalation QID PRN shortness 02/10/23 03/06/24 Rx (2.5 mg base)/3 mL nebulization of breath or wheezing #90 mL soln rimegepant 75 mg disintegrating See Rx Instructions .Route 06/03/23 03/06/24 Rx tablet (Nurtec ODT) .COMPLEX #16 tabs atorvastatin 10 mg tablet 10 mg PO DAILY #90 tabs 01/03/24 03/06/24 Rx cholecalciferol (vitamin D3) 50 50 mcg PO DAILY #90 caps 01/03/24 03/06/24 Rx mcg (2,000 unit) capsule ergocalciferol (vitamin D2) 1,250 1,250 mcg PO WEEKLY #14 caps 01/03/24 03/06/24 Rx mcg (50,000 unit) capsule celecoxib 200 mg capsule See Rx Instructions .Route 02/07/24 03/06/24 Rx .COMPLEX #90 caps duloxetine 60 mg capsule,delayed 60 mg PO DAILY #30 caps 02/07/24 03/06/24 Rx release (Cymbalta) bupropion HCl 150 mg 24 hr tablet, 150 mg PO DAILY #30 tabs 02/28/24 03/06/24 Rx extended release gabapentin 300 mg capsule 300 mg PO BID PRN Neuropathic pain 02/28/24 03/06/24 Rx #60 caps metoprolol succinate 25 mg See Rx Instructions .Route 02/28/24 03/06/24 Rx tablet,extended release 24 hr .COMPLEX BLOOD PRESSURE #90 tabs naltrexone 50 mg tablet 50 mg PO DAILY #30 tabs 02/28/24 03/06/24 Rx levothyroxine 125 mcg tablet 125 mcg PO DAILY #90 tabs 04/23/24 Rx New Prescriptions to Start Prescriptions: Allergies Allergy/AdvReac Type Severity Reaction Status Date / Time No Known Drug Allergies Allergy Unknown Verified 03/06/24 09:54 Assessment and Plan *Assessment and plan (1) DDD (degenerative disc disease), lumbar: Status: Chronic Category: Medical Code(s): M51.36 - Other intervertebral disc degeneration, lumbar region (2) Degenerative joint disease (DJD) of lumbar spine: Status: Chronic Qualifiers: Spinal osteoarthritis complication: unspecified spinal osteoarthritis Qualified Code(s): M47.816 - Spondylosis without myelopathy or radiculopathy, lumbar region Category: Medical Code(s): M47.816 - Spondylosis without myelopathy or radiculopathy, lumbar region (3) Lumbar radiculopathy: Status: Chronic Category: Medical Code(s): M54.16 - Radiculopathy, lumbar region (4) Facet arthropathy: Status: Chronic Category: Medical Code(s): M47.819 - Spondylosis without myelopathy or radiculopathy, site unspecified Plan Patient is experiencing worsening pain throughout her low back with radiating symptoms of numbness and tingling down into her right lower extremity. Patient did have limited range of motion of her lumbar spine and a positive right leg raise with today's visit. I did discuss with patient that she may benefit from repeat lumbar epidural steroid injection. Risk and benefits were discussed with the patient and she would like to proceed forward with this plan of care. Patient is not on any blood thinners. Patient did previously have a lumbar epidural back on March 08, 2023 that provided 65% relief and gave significant improvement for 2 weeks and continue to at least take the severity off of her pain for a couple of months. Patient has tried and failed conservative therapy including continued at home stretching exercise for longer than 6 weeks. I have also discussed with patient that I will resend her for psychological evaluation as it has been longer than 6 months in order to proceed forward with the pain pump trial at a later date. Patient agrees with this plan of care. Patient will be scheduled for a lumbar epidural steroid injection L3-L4 under fluoroscopy. Patient has been instructed to contact the clinic with any concerns before the next appointment. Dr. Baca has reviewed this note and agrees with this plan of care. This note was dictated using voice recognition software and make contain errors or omissions. All injections are used with Lidocaine or Bupivacaine and Depo Medrol.
[2024-05-02 10:47] VITALS: BP 132/74; PULSE 62; RESP 18; O2SAT 96; BMI 35.6
== END 2024-05-02 23:59 | disposition home or self-care (01) ==
LOC: SC.PAIN 09:18
PROVIDERS: PCP Physician Assistant; Visit Provider Nurse Practitioner Family
DX: M51.16 Intervertebral disc disorders with radiculopathy, lumbar region (principal); M47.26 Other spondylosis with radiculopathy, lumbar region; Z96.651 Presence of right artificial knee joint; Z73.89 Other problems related to life management difficulty; Z79.899 Other long term (current) drug therapy
CPT/HCPCS: 99212; G0463

== ENCOUNTER 2024-05-21 14:25 | Outpatient (CLI) | payer MEDICARE, SELFPAY ==
[2024-05-21 12:35] LABS: Basophils # 0.1 K/mm3 (0-0.2); Basophils % 0.6 % (0.1-2.0); Eosinophils # 0.2 K/mm3 (0.0-0.4); Eosinophils % 1.9 % (0.1-12.0); Hemoglobin 13.7 g/dL (12.2-16.2); Lymphocytes # 2.3 K/mm3 (0.7-4.5); Lymphocytes % 29.6 % (10-50); Mean Corpuscular Hemoglobin 29.7 pg (27.0-31.2); Mean Corpuscular Volume 95.7 fl (81-99); Monocytes # 0.3 K/mm3 (0.1-1.0); Monocytes % 3.5 % (1.7-9.3); Neutrophils # 4.9 K/mm3 (1.8-7.8); Neutrophils % 64.3 % (37.0-80.0); Platelet Count 282 K/mm3 (142-424); Red Cell Distribution Width 15.1 % (11.5-17.5); White Blood Count 7.6 K/mm3 (4.8-10.8)
[2024-05-21 12:46] LABS: Hemoglobin A1C 5.5 % (4.0-6.0)
[2024-05-21 13:14] LABS: Alanine Aminotransferase 21 U/L (12-78); Albumin Level 4.1 g/dl (3.5-5.0); Albumin/Globulin Ratio 1.5 (1.1-1.8); Alkaline Phosphatase 155 U/L (38-126); Anion Gap 14.2 mEq/L (5-15); Aspartate Amino Transferase 27 U/L (14-36); Bilirubin,Total 0.5 mg/dl (0.2-1.3); Blood Urea Nitrogen 10 mg/dl (7-17); Calcium 9.3 mg/dl (8.4-10.2); Carbon Dioxide 23 mmol/L (22.0-30.0); Chloride 108 mmol/L (98-107); Chol/HDL Ratio 4.7 (1-3.5); Cholesterol 207 mg/dl (140-200); Estimated Glomerular Filt Rate 74 ml/min (>60); GFR (African American) 89 ML/MIN (>60); Globulin 2.8 g/dL (1.3-3.2); Glucose 132 mg/dl (74-100); HDL Cholesterol 44 mg/dl (40-60); Potassium 4.2 mmoL/L (3.5-5.1); Sodium 141 mmol/L (136-145); Total Protein,Serum 6.9 g/dl (6.3-8.2); Triglycerides 288 mg/dl (30-150); VLDL Cholesterol 58 mg/dL (0-40)
[2024-05-21 13:25] LABS: Direct LDL Cholesterol 106.07 mg/dL (100-129)
[2024-05-21 13:29] LABS: 25-OH Vitamin D, Total 44.5 ng/mL (30-100)
[2024-05-21 16:12] LABS: Intact Parathyroid Hormone 92.4 pg/mL (7.5-53.5)
== END 2024-05-21 23:59 | disposition home or self-care (01) ==
LOC: LAB.DROPOF 14:26
PROVIDERS: PCP Physician Assistant; Visit Provider Physician Assistant
DX: E11.59 Type 2 diabetes mellitus with other circulatory complications (principal); R53.83 Other fatigue; E78.5 Hyperlipidemia, unspecified; I10 Essential (primary) hypertension; E55.9 Vitamin D deficiency, unspecified; E66.9 Obesity, unspecified; Z68.34 Body mass index [BMI] 34.0-34.9, adult
CPT/HCPCS: 80053; 80061; 82306; 83036; 83970; 84443; 85025

== ENCOUNTER 2024-05-29 09:37 | Day surgery (SDC) | payer MEDICARE, SELFPAY ==
[2024-05-29 09:52] VITALS: BP 163/91; PULSE 59; RESP 16; TEMP 36.8; O2SAT 98; BMI 34.5
[2024-05-29] MEDS: methylPREDNISolone ACETATE 80MG/ML VIAL 80 MG (10:06)
[2024-05-29 10:08] VITALS: BP 158/78; PULSE 77; RESP 18; O2SAT 97
--- NOTE | 2024-05-29 10:10 | P.PCN_ITS ---
Procedure Date: 05/29/24 Time: 10:10 Anesthesiologist:: [place] Tovar CRNA Complications:: None Pre-procedure Diagnosis:: Degenerative disc lumbar spine multilevels. Lumbar radiculopathy. Lumbar postlaminectomy syndrome. Lumbar spondylosis. Multilevel lumbar disc bulge. Post-procedure Diagnosis:: Same. Indications for Procedure:: Patient is a very pleasant 59-year-old female who comes our clinic today for lumbar epidural steroid injection at the L3-4 level. Patient describes low franky mbar back pain as well as bilateral hip and leg radicular symptoms as constant, dull, aching, intermittent, sharp, stabbing. She rates her pain 7/10. Procedure Details:: Procedure: Lumbar epidural steroid injection under fluoroscopy Informed consent was obtained and the risks and benefits of the procedure were explained to the patient. The patient was taken to the procedure room and noninvasive monitors placed, including noninvasive blood pressure cuff and pulse oximeter. The back was viewed using C-arm Fluoroscopy and prepped using Chloraprep as a cleansing solution and the L3-4 interspace was palpated. Skin and subcutaneous tissues were anesthetized using lidocaine 1.5% and a 25-gauge needle. After this, an 18-gauge Touhy epidural needle was placed into the L3-4 interspace and advanced using fluoroscopic guidance and loss of resistance to air until the epidural space was encountered. After confirmation of needle placement in the epidural space, with dye, a solution containing normal saline, 3 mL and Depo-Medrol 80 mg were incrementally injected into the lumbar epidural space. The patient tolerated the procedure well with no complications. The patient was observed in the Pain Clinic and then discharged home neurologically intact. Plan and Disposition:: Patient was discharged without incident.
[2024-05-29 10:12] VITALS: BP 152/77; PULSE 67; RESP 18; O2SAT 98
== END 2024-05-29 10:12 | disposition home or self-care (01) ==
PROVIDERS: PCP Physician Assistant; Visit Provider Nurse Anesthetist, Certified Registered
DX: M51.16 Intervertebral disc disorders with radiculopathy, lumbar region (principal); M96.1 Postlaminectomy syndrome, not elsewhere classified; M47.26 Other spondylosis with radiculopathy, lumbar region
CPT/HCPCS: 62323; J1010

== ENCOUNTER 2024-05-31 08:05 | Outpatient (CLI) | payer MEDICARE, SELFPAY ==
--- OUTSIDE RECORDS SUMMARY | 2024-06-05 11:55 | XMS_ITS ---
Author Organization [facility] Address [address] [place] [phone] Phone Care Team Providers Care Warehouse Team Member Name Role Phone Yariel GUSMAN, Beau Elmore Unavailable [phone] Plan of Treatment No Plan of Treatment Recorded Assessments Includes: Assessments for all patient encounters No Assessments Recorded Medical Equipment - Implanted Devices Includes: Current and historical Devices No Medical Equipment Recorded Medications Administered Includes: Administered Medications in patient's chart No Administered Medications Recorded Results Includes: Results from 06/05/2023 through 06/05/2024 No Results Recorded For Specified Dates History of Present Illness History of Present Illness not supported for this document type No History of Present Illness Recorded Social History No Social History Recorded - Smoking Status Unknown Medical History Includes: Medical History in patient's chart No Medical History Recorded Family History Includes: Family History in patient's chart No Family History Recorded Review of Systems Review of Systems not supported for this document type No Review of Systems Recorded Mental Status No Mental Status Recorded Functional Status No Functional Status Recorded Physical Exam Physical Exam not supported for this document type No Physical Exam Recorded Insurance Includes: Active Insurance Policies Plan Name Member ID Group # Subscriber Relationship Effect cindy Dates 1 - Medicare Part B [facility] [id number] Mya Lerner Self 2 - [employer] [id number] Mya Banegas Clinical Notes Includes: Signed Clinical Notes starting from 09/16/2022 No Clinical Notes Recorded
--- OUTSIDE RECORDS SUMMARY | 2024-06-05 11:55 | XMS_ITS ---
Care Plan - [facility], [facility] Created on: June 05, 2024 Mya Lerner : 1965 Sex: Female Author [facility] Address [address] [place] [phone] Phone Care Team Providers Care Core Maker Name Role Phone Yariel GUSMAN, Beau Elmore Unavailable [phone]
== END 2024-05-31 23:59 | disposition home or self-care (01) ==
LOC: RAD 08:08
PROVIDERS: PCP Physician Assistant; Visit Provider Physician Assistant
DX: E21.3 Hyperparathyroidism, unspecified (principal)

== ENCOUNTER 2024-06-01 08:07 | Outpatient (CLI) | payer MEDICARE, SELFPAY ==
--- NOTE | 2024-06-01 08:12 | NM_ITS ---
FINAL REPORT CLINICAL HISTORY: elevated PTH COMPARISON: None FINDINGS: PARATHYROID SCAN The patient received a dose of 21.1 millicuries of technetium 99m sestamibi. Images over the neck were obtained initially and after a two-hour delay. There is no significant activity on the immediate images. There is not much activity identified in the region of the thyroid. On delayed images, there are no localized foci of increased activity suggesting parathyroid adenoma. IMPRESSION: No evidence of parathyroid adenoma. Reviewed, Interpreted and Dictated by Orestes Galicia MD Transcribed by Aixa Bradley Authenticated and [facility]
[2024-06-01] MEDS: SODIUM CHLORIDE 0.9% 10ML SYR (RAD ONLY) 10 ML IV (08:30)
[2024-06-01] MEDS: ISO TC99M (SESTAMIBI);1 DOSE VIAL IV (09:40)
--- OUTSIDE RECORDS SUMMARY | 2024-06-05 11:59 | XMS_ITS ---
Care Plan - [facility], [facility] Created on: June 05, 2024 Mya Lerner : 1965 Sex: Female Author Organization [facility] Address [address] [place] [phone] Phone Care Team Providers Care Diesel Service Journeyman Name Role Phone Yariel GUSMAN, Beau Elmore Unavailable [phone]
--- OUTSIDE RECORDS SUMMARY | 2024-06-05 11:59 | XMS_ITS ---
Author Organization [facility] , [facility] Address [address] [place] [phone] Phone Care Team Providers Care Marine Fireman Name Role Phone Yariel GUSMAN, Beau Elmore Unavailable [phone] Plan of Treatment No Plan [...] cindy Dates 1 - Medicare Part B [facility] [id number] Mya Lerner Self 2 - [employer] MED[employer] [id number] Mya Banegas Clinical Notes Includes: Signed Clinical Notes starting from 09/16/2022 No Clinical Notes Recorded
== END 2024-06-01 23:59 | disposition home or self-care (01) ==
LOC: RAD 08:08
PROVIDERS: PCP Physician Assistant; Visit Provider Physician Assistant
DX: R79.89 Other specified abnormal findings of blood chemistry (principal)
CPT/HCPCS: 78070; A9500

== ENCOUNTER 2024-06-25 13:58 | Outpatient (POV) | payer MEDICARE, SELFPAY ==
[2024-06-25 14:35] VITALS: BP 141/72; PULSE 88; RESP 18; O2SAT 99; BMI 35.0
--- NOTE | 2024-06-25 15:02 | A.OFFVIS_ITS ---
[facility] Disclaimer: The information contained in this section may have been updated after the patient was seen, as this information can be updated by other users. Medical History Hearing loss Dysphonia Otalgia, left ear HLD (hyperlipidemia) CAD (coronary artery disease) Abnormal echocardiogram Abnormal cardiovascular stress test Unstable angina pectoris Asthma Abnormal ECG Hypertension Neuroforaminal stenosis of lumbar spine Depression Lumbar stenosis with neurogenic claudication Anemia Hypothyroidism (acquired) Patients TSH was 0.07 earlier this year. Her thyroxine has not been adjusted, so will decrease to 0.125. She is to RTC for a blood draw and TSH in about 4- 6 weeks. We may need to further decrease. Cervical stenosis of spinal canal Lumbar stenosis without neurogenic claudication Knee pain, right Lumbar stenosis with neurogenic claudication Surgical History History of bladder surgery History of section History of thyroidectomy History of cholecystectomy History of total hysterectomy History of hernia repair History of total right knee replacement History of lumbar fusion Family History Other Asthma Cancer Hypertension Social History Smoking Status: Never smoker second hand exposure: Yes alcohol intake: never substance use type: denies use current occupational status: other Travel in the last 8 weeks: None household members: spouse and children housing: house current occupation: [employer] current occupational exposures/hazards: No caffeine: Yes PM Subjective & Objective Subjective Subjective:: Patient is a pleasant 59-year-old female who presents today for follow-up of lumbar epidural steroid injection L3-L4 on 05/29/2024. Today she rates her pain a 8 out of 10. Patient states that she really did not notice significant improvement with this. She states that she had relief while the numbing medication had kicked again for a few hours however her symptoms immediately came back once the numbing medication wore off. Patient does also have a history of falls. She states that these will happen from time to time just where her legs give out. Patient does have chronic pain throughout her mid back and radiating down into her lower lumbar spine and extremities. Patient denies any recent imaging. Patient had been discussed that she may be a candidate of the intrathecal pain pump trial. Patient does state that she does have questions regarding this. Patient states that she has asked around and had mixed reactions from people. Patient has tried and failed conservative treatment. She is on gabapentin from her PCP. Her Agusto has been reviewed and is appropriate. Review of Systems: General: No recent weight changes, no fever, no sleep disturbances Respiratory: No cough, no shortness of air, no recurring pulmonary infections Cardiovascular/peripheral vascular: No chest pain, no palpitations, no edema, no shortness of breath Gastrointestinal: No new onset incontinence, normal bowel movements reported Genitourinary: No new onset incontinence Musculoskeletal: Mid to low back pain Psychiatric: [Normal mood/affect] Neurological: [Denies weakness in extremities], [denies balance issues] Pain at rest (0-10 scale): 8 Objective Objective:: Physical Exam: General: Alert and oriented x3, no acute distress, pleasant and cooperative Lungs: Respirations even and unlabored, symmetrical chest expansion Eyes: PERRL Musculoskeletal: Flexion and extension of lumbar [spine] somewhat guarded secondary to pain, [antalgic gait noted] Neurological: Speech clear, no gross sensory deficit Has patient had previous pain injection?: Yes Percent improvement in pain since last injection: Minimal Conservative treatment options previously tried: Home exercise plan Length of treatment: Longer than 12 weeks Meds Home Medications and Allergies Home Medications ?Medication ?Instructions ?Recorded ?Confirmed ?Type albuterol sulfate 90 mcg/actuation 2 puff inhalation Q6HP PRN 12/21/21 06/25/24 Rx aerosol inhaler shortness of breath or wheezing #8.5 grams ipratropium 0.5 mg-albuterol 3 mg 3 ml inhalation QID PRN shortness 02/10/23 06/25/24 Rx (2.5 mg base)/3 mL nebulization of breath or wheezing #90 mL soln rimegepant 75 mg disintegrating See Rx Instructions .Route 06/03/23 06/25/24 Rx tablet (Nurtec ODT) .COMPLEX #16 tabs cholecalciferol (vitamin D3) 50 50 mcg PO DAILY #90 caps 01/03/24 06/25/24 Rx mcg (2,000 unit) capsule ergocalciferol (vitamin D2) 1,250 1,250 mcg PO WEEKLY #14 caps 01/03/24 06/25/24 Rx mcg (50,000 unit) capsule celecoxib 200 mg capsule See Rx Instructions .Route 02/07/24 06/25/24 Rx .COMPLEX #90 caps gabapentin 300 mg capsule 300 mg PO BID PRN Neuropathic pain 02/28/24 06/25/24 Rx #60 caps levothyroxine 125 mcg tablet 125 mcg PO DAILY #90 tabs 04/23/24 06/25/24 Rx atorvastatin 20 mg tablet (Lipitor) 20 mg PO HS #30 tabs 05/22/24 06/25/24 Rx metoprolol succinate 25 mg See Rx Instructions .Route 06/08/24 06/25/24 Rx tablet,extended release 24 hr .COMPLEX BLOOD PRESSURE #90 tabs New Prescriptions to Start Prescriptions: Allergies Allergy/AdvReac Type Severity Reaction Status Date / Time No Known Drug Allergies Allergy Unknown Verified 05/29/24 09:56 Assessment and Plan *Assessment and plan (1) Mid back pain: Status: Acute Category: Medical Code(s): M54.9 - Dorsalgia, unspecified (2) Lumbar radiculopathy: Status: Chronic Category: Medical Code(s): M54.16 - Radiculopathy, lumbar region (3) Low back pain: Problem Comment: Patient's pain is controlled with minimal hydrocodone. She is following with spinal surgery and will have this scheduled in the near future. We will do her Pre-Op evaluation at that time. For now will refill the HC/APAP and cyclobenzaprine. Status: Chronic Qualifiers: Chronicity: chronic Back pain laterality: bilateral Sciatica presence: with sciatica Sciatica laterality: bilateral sciatica Qualified Code(s): M54.42 - Lumbago with sciatica, left side; M54.41 - Lumbago with sciatica, right side; G89.29 - Other chronic pain Category: Medical Code(s): M54.50 - Low back pain, unspecified Plan Patient continues to experience significant pain from her thoracic to lumbar spine with limited range of motion. I did discuss with the patient regarding the risk and benefits of intrathecal pain pump trial and have counseled her that we can talk about this at future visits as well. I will order x-ray imaging to follow with MRI without contrast of her thoracic and lumbar spine due to her worsening pain. Patient has tried and failed conservative therapy including continued at home stretching and exercise for longer than 12 weeks. Patient will return to clinic in 1 month for reevaluation of symptoms and plan of care. Patient has been instructed to contact the clinic with any concerns before the next appointment. Dr. Baca has reviewed this note and agrees with this plan of care. This note was dictated using voice recognition software and make contain errors or omissions. All injections are used with Lidocaine or Bupivacaine and Depo Medrol.
== END 2024-06-25 23:59 | disposition home or self-care (01) ==
LOC: SC.PAIN 13:59
PROVIDERS: PCP Physician Assistant; Visit Provider Nurse Practitioner Family
DX: M54.9 Dorsalgia, unspecified (principal); M54.16 Radiculopathy, lumbar region; M54.42 Lumbago with sciatica, left side; M54.41 Lumbago with sciatica, right side; G89.29 Other chronic pain; Z96.651 Presence of right artificial knee joint
CPT/HCPCS: 99212; G0463

== ENCOUNTER 2024-07-15 11:50 | Emergency (ER) | payer MEDICARE, SELFPAY ==
--- NOTE | 2024-07-15 11:54 | XR_ITS ---
PROCEDURE INFORMATION: Exam: XR Left Wrist Exam date and time: 07/15/2024 11:55 AM Age: 59 years old Clinical indication: Injury or trauma; Fall; Blunt trauma (contusions or hematomas); Hand; Left; Additional info: Fall/pain TECHNIQUE: Imaging protocol: Radiologic exam of the left wrist. Views: 3 or more views. COMPARISON: CR XR WRIST LT MIN 3V 03/19/2024 2:55 PM FINDINGS: Bones/joints: Moderate degenerative changes in the radiocarpal joint. There is no evidence of acute fracture.There is no evidence of malalignment or dislocation. Soft tissues: Normal. IMPRESSION: There is no evidence of acute fracture.There is no evidence of malalignment or dislocation.
--- NOTE | 2024-07-15 11:54 | XR_ITS ---
PROCEDURE INFORMATION: Exam: XR Left Hand Exam date and time: 07/15/2024 11:54 AM Age: 59 years old Clinical indication: Injury or trauma; Fall; Blunt trauma (contusions or hematomas); Hand; Left; Additional info: Fall/pain TECHNIQUE: Imaging protocol: Radiologic exam of the left hand. Views: 3 or more views. COMPARISON: CR XR HAND LT MIN 3V 03/19/2024 2:53 PM FINDINGS: Bones/joints: Stable well corticated avulsion fracture in the IP joint of the thumb. Joint space narrowing in the DIP joints of the fingers, especially the index finger consistent with moderate degenerative changes. Stable lucency in the proximal aspect of the distal phalanx of the long finger was present on the prior study and may represent chronic unhealed fracture.. Moderate degenerative changes in the radiocarpal joint. Well corticated ossific fragments along the dorsal distal aspect of the proximal phalanx of the long finger and index finger seen on the lateral. These may represent old avulsion fractures. There is no evidence of acute fracture.There is no evidence of malalignment or dislocation. Soft tissues: Normal. IMPRESSION: 1. Joint space narrowing in the DIP joints of the fingers, especially the index finger consistent with moderate degenerative changes. 2. Stable lucency in the proximal aspect of the distal phalanx of the long finger was present on the prior study and may represent chronic unhealed fracture.. 3. Well corticated ossific fragments along the dorsal distal aspect of the proximal phalanx of the long finger and index finger seen on the lateral. These may represent old avulsion fractures. 4. There is no evidence of acute fracture.There is no evidence of malalignment or dislocation.
--- NOTE | 2024-07-15 11:54 | XR_ITS ---
PROCEDURE INFORMATION: Exam: XR Left Forearm Exam date and time: 07/15/2024 12:04 PM Age: 59 years old Clinical indication: Injury or trauma; Fall; Blunt trauma (contusions or hematomas); Arm, lower; Left; Additional info: Fall/pain TECHNIQUE: Imaging protocol: Radiologic exam of the left forearm. Views: 2 views. COMPARISON: CR XR FOREARM LT 2V 03/19/2024 2:57 PM FINDINGS: Bones/joints: Moderate degenerative changes in the radiocarpal joint . There is no evidence of acute fracture.There is no evidence of malalignment or dislocation. Soft tissues: Normal. IMPRESSION: Moderate degenerative changes in the radiocarpal joint .
[2024-07-15 12:50] VITALS: BP 132/81; PULSE 83; RESP 20; TEMP 36.9; O2SAT 99; BMI 35.0
--- NOTE | 2024-07-15 12:58 | ED_ITS ---
Discharge Plan Disposition Patient Disposition: Home, Self-Care Condition: Good Prescriptions Prescriptions: No Action atorvastatin 20 mg tablet 20 mg PO DAILY Patient Comments: TAKE 1 TABLET BY MOUTH AT BEDTIME NIGHTLY atorvastatin 10 mg tablet 10 mg PO DAILY Patient Comments: TAKE 1 TABLET BY MOUTH ONCE DAILY levothyroxine 125 mcg tablet 125 mcg PO DAILY Patient Comments: TAKE 1 TABLET BY MOUTH ONCE DAILY gabapentin 300 mg capsule 300 mg PO DAILY Patient Comments: TAKE 1 CAPSULE BY MOUTH TWICE DAILY NEEDED FOR NEUROPATHIC PAIN metoprolol succinate 25 mg tablet extended release 24 hr 25 mg PO DAILY Patient Comments: TAKE 1 TABLET BY MOUTH ONCE DAILY FOR BLOOD PRESSURE cholecalciferol (vitamin D3) 1,250 mcg (50,000 unit) capsule 1,250 mcg PO DAILY Patient Comments: TAKE 1 CAPSULE BY MOUTH ONCE A WEEK ON THE SAME DAY OF EACH WEEK Referrals Follow up/Referrals: Tiffanie Esqueda PA [Primary Care Provider] - See instructions Calvin Saldivar DO [Staff Physician] - See instructions Activity Restrictions/Add. Instructions Additional Instructions/Restrictions: *RICE, Rest the extremity, Ice 15-20 minutes 3-4 times daily, Compress- wear the elvin wrap as discussed as much as possible to help reduce swelling and pain, Elevate the extremity when at rest * Velcro wrist splint is for support and help control swelling, use it except in the shower. Be sure that is not to tight but not to loose either *Elevate when resting? *Ibuprofen 600-800mg every 6-8 hours as needed for pain an inflammation. If need something more can take Tylenol in between doses of Ibuprofen to help Immediately follow up with your family doctor for new or worsening of symptoms, or no noticeable improvement over the next 3-5 days Clinical Impressions Clinical Impression: Left wrist sprain Qualifiers: Encounter type: initial encounter Qualified Code(s): S63.502A - Unspecified sprain of left wrist, initial encounter Instructions Patient Instructions: How To Perform RICE (Rest, Ice, Compress, Elevate) Print Language Print Language: Slovenian Discharge ED Provider: [place] [facility] HPI General Stated complaint: left arm pain AO Fall Mode of Arrival: Ambulatory Source of Information: Patient Limitations: No Limitations Time Seen by Provider: 07/15/24 12:58 Description of Symptoms (Recalled from Triage Doc. by RN): PATIENT STATES SHE FELL AND INJURED HER LEFT WRIST APPROX 2 MONTHS AGO AND REPORTS HER X-RAY WAS NEGATIVE FOR A FRACTURE. SHE STATES SHE FELL AGAIN 3 WEEKS AGO AND FELL ON HER LEFT WRIST AND IT BECAME WORSE. HEENT Symptoms (Recalled from RN notes): No Resp Symptoms (Recalled from RN notes): No Skin Symptoms (Recalled from RN notes): No MS Symptoms (Recalled from RN notes): Yes Functional Status (Recalled from RN notes): WNL History of Present Illness Provider Complaint: Patient states that she initially fell about 2 mths ago and hurt her left wrist but it was getting better and then she fell again a few weeks ago and landed on the same wrist States that since then she has been having pain in her left wrist worse when she tries to hold or lift something it shoots pain into her wrist and she almost drops it States today it was still bothering her so she came in to get it checked Related Data Home Medications ?Medication ?Instructions ?Recorded ?Confirmed atorvastatin 10 mg tablet 10 mg PO DAILY 07/15/24 07/15/24 atorvastatin 20 mg tablet 20 mg PO DAILY 07/15/24 07/15/24 cholecalciferol (vitamin D3) 1,250 1,250 mcg PO DAILY 07/15/24 07/15/24 mcg (50,000 unit) capsule gabapentin 300 mg capsule 300 mg PO DAILY 07/15/24 07/15/24 levothyroxine 125 mcg tablet 125 mcg PO DAILY 07/15/24 07/15/24 metoprolol succinate 25 mg 25 mg PO DAILY 07/15/24 07/15/24 tablet,extended release 24 hr Allergies Allergy/AdvReac Type Severity Reaction Status Date / Time No Known Drug Allergies Allergy Unknown Verified 05/29/24 09:56 Worker's Comp Is this a Worker's Comp case?: No [facility] Disclaimer: The information contained in this section may have been updated after the patient was seen, as this information can be updated by other users. Medical History Hearing loss Dysphonia Otalgia, left ear HLD (hyperlipidemia) CAD (coronary artery disease) Abnormal echocardiogram Abnormal cardiovascular stress test Unstable angina pectoris Asthma Abnormal ECG Hypertension Neuroforaminal stenosis of lumbar spine Depression Lumbar stenosis with neurogenic claudication Anemia Hypothyroidism (acquired) Patients TSH was 0.07 earlier this year. Her thyroxine has not been adjusted, so will decrease to 0.125. She is to RTC for a blood draw and TSH in about 4- 6 weeks. We may need to further decrease. Cervical stenosis of spinal canal Lumbar stenosis without neurogenic claudication Knee pain, right Lumbar stenosis with neurogenic claudication Surgical History History of bladder surgery History of section History of thyroidectomy History of cholecystectomy History of total hysterectomy History of hernia repair History of total right knee replacement History of lumbar fusion Family History Other Asthma Cancer Hypertension Social History Smoking Status: Never smoker second hand exposure: Yes alcohol intake: never substance use type: denies use current occupational status: other Travel in the last 8 weeks: None household members: spouse and children housing: house current occupation: [employer] current occupational exposures/hazards: No caffeine: Yes ROS Obtained: Yes All systems reviewed & no additional complaints except as documented and Yes Systems reviewed as appropriate & no additional complaints except as documented Constitutional Constitutional: Reports system reviewed and no additional complaints, except as documented and Reports as per HPI ENT Ears, Nose, Mouth, and Throat: Reports system reviewed and no additional complaints, except as documented and Reports as per HPI Cardiovascular Cardiovascular: Reports system reviewed and no additional complaints, except as documented and Reports as per HPI Respiratory Respiratory: Reports system reviewed and no additional complaints, except as documented and Reports as per HPI Gastrointestinal Gastrointestingal: Reports system reviewed and no additional complaints, except as documented and as per HPI Musculoskeletal Musculoskeletal: Reports system reviewed and no additional complaints, except as documented, Reports as per HPI and Reports other (pain in left wrist after falling 3 weeks ago) Physical Exam General General appearance: alert and in no apparent distress ENT ENT exam: Present mucous membranes moist Respiratory Respiratory exam: Present normal lung sounds bilaterally; Absent respiratory distress or wheezes Cardiovascular Cardiovascular exam: Present regular rate, normal rhythm and normal heart sounds Abdominal Exam Abdominal exam: Present soft and normal bowel sounds; Absent distention or tenderness Expanded Upper Extremity Exam Left: L/R Arms Top View: 2 1. pain with movement after falling 3 weeks ago, no discoloration noted mild swelling Vascular exam: Normal capillary refill and radial pulse Neurological Exam Neurological exam: Present alert, oriented X3 and normal gait Medical Decision Making Medical Records Screening: Per USPSTF and CDC recommendations, given the prevalence of disease in our region, it is our hospital?s policy to screen for HIV and viral Hepatitis for all patients aged 18 and over and those with ongoing risk factors. Agusto Inquiry Pt receiving controlled substance: No Agusto was queried for this patient: No Vital Signs: 07/15/24 12:50 Temperature 98.4 F Temperature Source Oral Pulse Rate [Left] 83 Respiratory Rate 20 Blood Pressure [Left Arm] 132/81 Blood Pressure Mean [Left Arm] 98 Blood Pressure Source [Left Arm] Automatic Cuff Blood Pressure Position [Left Arm] Sitting 02 Sat by Pulse Oximetry 99 Oxygen Delivery Method Room Air Orders (Tests/Meds): ORDERS Category Date Time Status Forearm XR left 2 views [XR forearm LT 2V] Stat Exams 07/15/24 11:54 Taken XR hand LT min 3V Stat Exams 07/15/24 11:54 Taken XR wrist LT min 3V Stat Exams 07/15/24 11:54 Taken Radiology Data #1: Image(s): Hand Image Reviewed: Yes I have reviewed radiologist's interpretation IMPRESSION: 1. Joint space narrowing in the DIP joints of the fingers, especially the index finger consistent with moderate degenerative changes. 2. Stable lucency in the proximal aspect of the distal phalanx of the long finger was present on the prior study and may represent chronic unhealed fracture.. 3. Well corticated ossific fragments along the dorsal distal aspect of the proximal phalanx of the long finger and index finger seen on the lateral. These may represent old avulsion fractures. 4. There is no evidence of acute fracture.There is no evidence of malalignment or dislocation. #2: Image(s): Wrist Image Reviewed: Yes I have reviewed radiologist's interpretation IMPRESSION: There is no evidence of acute fracture.There is no evidence of malalignment or dislocation. #3: Image(s): Forearm Image Reviewed: Yes I have reviewed radiologist's interpretation IMPRESSION: Moderate degenerative changes in the radiocarpal joint .
[2024-07-15 13:40] VITALS: BP 132/81; PULSE 83; RESP 20; TEMP 36.9; O2SAT 99
== END 2024-07-15 13:51 | disposition home or self-care (01) ==
PROVIDERS: Emergency Provider Nurse Practitioner; PCP Physician Assistant
DX: S63.502A Unspecified sprain of left wrist, initial encounter (principal); W19.XXXA Unspecified fall, initial encounter
CPT/HCPCS: 73090; 73110; 73130; 99213; G0381

== ENCOUNTER 2024-07-24 07:32 | Outpatient (CLI) | payer MEDICARE, SELFPAY ==
--- NOTE | 2024-07-24 07:35 | MR_ITS ---
PROCEDURE INFORMATION: Exam: MR Thoracic Spine Without Contrast Exam date and time: 07/24/2024 7:43 AM Age: 59 years old Clinical indication: Pain in thoracic spine; Additional info: Mid and low back pain TECHNIQUE: Imaging protocol: Magnetic resonance imaging of the thoracic spine without contrast. COMPARISON: CR XR THORACIC SPINE 3V 02/17/2022 9:12 AM FINDINGS: Bones/joints: The vertebral body heights and alignment are maintained. There is [id number] multilevel degenerative disc disease. Small disc protrusions are identified at multiple levels which partially efface the anterior thecal sac. There is no significant spinal canal or neural foraminal stenosis. Spinal cord: Normal signal. No cord compression. Soft tissues: Unremarkable. IMPRESSION: 1. [id number] multilevel degenerative disc disease. 2. Small disc protrusions identified at multiple levels which partially efface the anterior thecal sac. No significant spinal canal or neural foraminal stenosis. 3. Normal appearance of the thoracic cord.
--- NOTE | 2024-07-24 07:35 | MR_ITS ---
PROCEDURE INFORMATION: Exam: MR Lumbar Spine Without Contrast Exam date and time: 07/24/2024 7:43 AM Age: 59 years old Clinical indication: Low back pain; Prior surgery; Surgery date: 6+ months; Surgery type: Unknown; Additional info: Mid and low back pain. History lumbar surgery. Right sided low back pain. Tingling in right leg with numbness TECHNIQUE: Imaging protocol: Magnetic resonance imaging of the lumbar spine without contrast. COMPARISON: MR LUMBAR SPINE WO/W CON 11/15/2022 1:04 PM FINDINGS: Bones/joints: The patient is status post posterior fusion at L4-L5. Bilateral transpedicular screws are seen at L4 and L5. There is slight grade 1 anterolisthesis of L4 on L5 again seen. Otherwise alignment is maintained. The vertebral body heights are maintained. There is a disc spacer at L4-L5. Spinal cord: Visualized cord, conus medullaris and cauda equina are unremarkable without compression. T12-L1: There is a small broad-based central disc protrusion again seen which partially effaces the anterior thecal sac. There is no significant spinal canal or neural foraminal stenosis. L1-L2: No significant disc bulge or herniation. No severe spinal canal stenosis. No significant neural foraminal narrowing. L2-L3: No significant disc bulge or herniation. No severe spinal canal stenosis. No significant neural foraminal narrowing. L3-L4: There is no significant spinal canal stenosis. There is bilateral facet hypertrophy without significant neural foraminal stenosis. L4-L5: Expected laminectomy changes are identified. The spinal canal appears patent. There is bilateral facet hypertrophy and foraminal disc osteophyte bulging without significant neural foraminal stenosis. L5-S1: There is a small broad-based central disc protrusion again seen without significant spinal canal stenosis. There is mild bilateral neural foraminal stenosis mainly secondary to facet hypertrophy. Soft tissues: Unremarkable. IMPRESSION: 1. Expected postsurgical changes. 2. Degenerative changes as described. Please see above for specific findings at each level.
== END 2024-07-24 23:59 | disposition home or self-care (01) ==
LOC: RAD 07:33
PROVIDERS: Visit Provider Nurse Practitioner Family
DX: M54.6 Pain in thoracic spine (principal); M54.50 Low back pain, unspecified
CPT/HCPCS: 72146; 72148

== ENCOUNTER 2024-08-13 13:30 | Outpatient (POV) | payer MEDICARE, SELFPAY ==
--- OUTSIDE RECORDS SUMMARY | 2024-08-13 13:33 | XMS_ITS ---
Author Organization [facility] Address [address] [place] [address] [place] [address] Phone Care Team Providers Care Advertising Operations Coordinator Name Role Phone Yariel GUSMAN, Beau Elmore Unavailable [phone] Plan of Treatment No Plan of Treatment Recorded Assessments Includes: Assessments for all patient encounters No Assessments Recorded Medical Equipment - Implanted Devices Includes: Current and historical Devices No Medical Equipment Recorded Medications Administered Includes: Administered Medications in patient's chart No Administered Medications Recorded Results Includes: Results from 08/13/2023 through 08/13/2024 No Results Recorded For Specified Dates History [...] cindy Dates 1 - Medicare Part B [facility] [id number] Mya Lerner Self 2 - [employer] MEDICAID [id number] Mya Banegas Clinical Notes Includes: Signed Clinical Notes starting from 09/16/2022 No Clinical Notes Recorded
--- OUTSIDE RECORDS SUMMARY | 2024-08-13 13:34 | XMS_ITS ---
Care Plan - [facility], [facility] Created on: August 13, 2024 Mya Lerner : 1965 Sex: Female Author Organization [facility] Address [address] [place] [id number] Phone Care Team Providers Care Starting Sheet Tank Operator Name Role Phone Yariel GUSMAN, Beau Elmore Unavailable [phone]
--- NOTE | 2024-08-13 14:38 | A.OFFVIS_ITS ---
[facility] Disclaimer: The information contained in this section may have been updated after the patient was seen, as this information can be updated by other users. Medical History Hearing loss Dysphonia Otalgia, left ear HLD (hyperlipidemia) CAD (coronary artery disease) Abnormal echocardiogram Abnormal cardiovascular stress test Unstable angina pectoris Asthma Abnormal ECG Hypertension Neuroforaminal stenosis of lumbar spine Depression Lumbar stenosis with neurogenic claudication Anemia Hypothyroidism (acquired) Patients TSH was 0.07 earlier this year. Her thyroxine has not been adjusted, so will decrease to 0.125. She is to RTC for a blood draw and TSH in about 4- 6 weeks. We may need to further decrease. Cervical stenosis of spinal canal Lumbar stenosis without neurogenic claudication Knee pain, right Lumbar stenosis with neurogenic claudication Surgical History History of bladder surgery History of section History of thyroidectomy History of cholecystectomy History of total hysterectomy History of hernia repair History of total right knee replacement History of lumbar fusion Family History Other Asthma Cancer Hypertension Social History Smoking Status: Never smoker second hand exposure: Yes alcohol intake: never substance use type: denies use current occupational status: other Travel in the last 8 weeks: None household members: spouse and children housing: house current occupation: [employer] current occupational exposures/hazards: No caffeine: Yes PM Subjective & Objective Subjective Subjective:: Patient is a pleasant 59-year-old female who [facility]. Today she rates her pain a 7 out of 10. Patient does state that she has had recent falls within the last 3 weeks from her last visit. Patient denies any specific reason for it other than her legs gave out overall. She states that she ended up hitting her wrist and shoulder along the left side and does have an upcoming left wrist MRI. Patient states that she does still have chronic pain across her low back and bilateral hips. She describes it as an aching, throbbing sensation with some numbness and tingling that are in her upper thighs. She does feel like a lot of it is a overall pressure and tenderness even into her buttocks area. Patient is interested in any help we may be able to provide as it is interfering with her ability perform activities of daily living such as cooking and cleaning. Patient has tried and failed conservative therapy including continued at home stretching exercise for longer than 12 weeks. Patient is prescribed gabapentin from an outside provider. Her Agusto has been reviewed and is appropriate. Review of Systems: General: No recent weight changes, no fever, no sleep disturbances Respiratory: No cough, no shortness of air, no recurring pulmonary infections Cardiovascular/peripheral vascular: No chest pain, no palpitations, no edema, no shortness of breath Gastrointestinal: No new onset incontinence, normal bowel movements reported Genitourinary: No new onset incontinence Musculoskeletal: Low back pain, bilateral hip pain Psychiatric: [Normal mood/affect] Neurological: [Denies weakness in extremities], [denies balance issues] Pain at rest (0-10 scale): 7 Objective Objective:: Physical Exam: General: Alert and oriented x3, no acute distress, pleasant and cooperative Lungs: Respirations even and unlabored, symmetrical chest expansion Eyes: PERRL Musculoskeletal: Flexion and extension of lumbar [spine] somewhat guarded secon marietta to pain, [antalgic gait noted] point tenderness along bilateral SIs with positive bilateral Phoenix's, Korin's, Gaenslen's, compression and distraction exam Neurological: Speech clear, no gross sensory deficit Has patient had previous pain injection?: No Conservative treatment options previously tried: Home exercise plan Length of tr eatment: Longer than 12 weeks Meds Home Medications and Allergies Home Medications ?Medication ?Instructions ?Recorded ?Confirmed ?Type atorvastatin 10 mg tablet 10 mg PO DAILY 07/15/24 07/31/24 History atorvastatin 20 mg tablet 20 mg PO DAILY 07/15/24 07/31/24 History cholecalciferol (vitamin D3) 1,250 1,250 mcg PO DAILY 07/15/24 07/31/24 History mcg (50,000 unit) capsule gabapentin 300 mg capsule 300 mg PO DAILY 07/15/24 07/31/24 History levothyroxine 125 mcg tablet 125 mcg PO DAILY 07/15/24 07/31/24 History metoprolol succinate 25 mg 25 mg PO DAILY 07/15/24 07/31/24 History tablet,extended release 24 hr New Prescriptions to Start Prescriptions: Allergies Allergy/AdvReac Type Severity Reaction Status Date / Time No Known Drug Allergies Allergy Unknown Verified 07/31/24 15:20 Assessment and Plan *Assessment and plan (1) Bilateral sacroiliitis: Status: Acute Category: Medical Code(s): M46.1 - Sacroiliitis, not elsewhere classified Plan Patient is experiencing worsening pain in her low back and bilateral hips. Patient did have point tenderness along her bilateral SIs with a positive bilateral Phoenix's, Korin's, Gaenslen's, compression and distraction exam. I did discuss with the patient that I do believe she would benefit from bilateral SI injections. Risk and benefits were discussed with patient and she would like to proceed forward with this plan of care. Patient has tried and failed conservative therapy including continued at home stretching exercise for longer than 12 weeks. I will also order the patient a compounded cream. Patient will be scheduled for bilateral SI injections under fluoroscopy. We did review over her lumbar MRI. Patient has been instructed to contact the clinic with any concerns before the next appointment. Dr. Baca has reviewed this note and agrees with this plan of care. This note was dictated using voice recognition software and make contain errors or omissions. All injections are used with Lidocaine or Bupivacaine and Depo Medrol.
[2024-08-13 14:54] VITALS: BP 134/74; PULSE 79; RESP 18; O2SAT 98; BMI 35.0
== END 2024-08-13 23:59 | disposition home or self-care (01) ==
LOC: SC.PAIN 13:31
PROVIDERS: Visit Provider Nurse Practitioner Family
DX: M46.1 Sacroiliitis, not elsewhere classified (principal); Z73.89 Other problems related to life management difficulty
CPT/HCPCS: 99212; G0463